=== PATIENT | male | born 1935 | race Caucasian/White ===

== ENCOUNTER 2021-12-26 09:18 | Emergency (ER) | payer MEDICARE, SELFPAY ==
[2021-12-26 09:19] VITALS: BP 136/63; PULSE 72; RESP 16; TEMP 36.7; O2SAT 92; BMI 23.1
--- NOTE | 2021-12-26 09:35 | RAD_ITS ---
STUDY: X-RAY - LEFT HUMERUS REASON FOR EXAM: Male, 86 years old. Injury/Pain TECHNIQUE: 2 view(s) of the humerus. COMPARISON: None. FINDINGS: The osseous structures appear intact. No evidence of fracture. Degenerative changes of the shoulder with narrowing of the space between the acromion process and humeral head impinging on the rotator cuff. Partially visualized left-sided cardiac device. RAD/Humerus min 2 Views IMPRESSION: No demonstrated acute osseous injury. Electronically Signed: Lawrence Roth, at 10:25 EST ,
--- NOTE | 2021-12-26 09:35 | RAD_ITS ---
STUDY: X-RAY - LEFT SHOULDER REASON FOR EXAM: Male, 86 years old. Injury/Pain TECHNIQUE: 4 view(s) of the shoulder. COMPARISON: None. FINDINGS: There is mild degenerative arthrosis of the glenohumeral articulation. Normal acromioclavicular joint. Normal acromion. Normal humeral head and visualized proximal humerus. The soft tissue structures are unremarkable. Partially visualized left-sided cardiac pacer device. RAD/Shoulder min 2 Views IMPRESSION: No demonstrated acute fracture or dislocation. Electronically Signed: Lawrence Roth, at 10:31 EST ,
[2021-12-26] MEDS: Diphth,Pertuss(Acell),Tet Vac 0.5 ML Vial IM (09:41)
--- NOTE | 2021-12-26 09:41 | EX.ED.UPPERE ---
HPI History of Present Illness Chief Complaint: Upper Extremity Injury Informant: patient Narrative Narrative: Patient is an 86-year-old male with history of end-stage renal disease on hemodialysis Tuesday and Tuesday presenting with left shoulder pain. Patient states he was try to get to bed last night and it was dark. He missed the bed and fell onto his left shoulder. Did not hit his head. Denies any loss of consciousness. Was able to get himself back up into bed. He continued of pain throughout the night and and then overnight took 2 ibuprofen. Denies any numbness or tingling. Did sustain an abrasion to his left elbow as well. Came in for further evaluation because of his continued pain. States he was able to get himself dressed this morning. Tetanus Immunization: Unknown [facility] Medical History History of heart attack Hyperlipidemia Kidney failure Pacemaker Home Medications Jenifer-Venessa 12/26/21 [History Last Taken Unknown] clopidogrel 12/26/21 [History Last Taken Unknown] doxycycline hyclate 12/26/21 [History Last Taken Unknown] [id number] [Trelegy Ellipta] INHALATION 12/26/21 [History Last Taken Unknown] gabapentin PO 12/26/21 [History Last Taken Unknown] midodrine mg 12/26/21 [History Last Taken Unknown] pantoprazole PO 12/26/21 [History Last Taken Unknown] sertraline mg 12/26/21 [History Last Taken Unknown] tamsulosin mg PO 12/26/21 [History Last Taken Unknown] tramadol 50 mg PO TID PRN #12 tab 12/26/21 [Rx Last Taken Unknown] Allergy/AdvReac Type Severity Reaction Status Date / Time No Known Allergies Allergy Verified 12/26/21 09:19 Social History Smoking Status: Current every day smoker tobacco type: cigarettes ROS ROS ED Constitutional Constitutional ED: Denies chills or fever(s) Eyes Eyes: Denies blurry vision or change in vision ENT ENT ED: Denies ear pain or sore throat Cardiovascular Cardiovascular: Denies chest pain or palpitations Respiratory/Chest Respiratory/Chest: Denies dyspnea Gastrointestinal Gastrointestinal: Denies abdominal pain or vomiting Musculoskeletal Musculoskeletal: Reports other Details: left shoulder pain Integumentary Reports Abrasions; Denies rash Neurologic Neurologic: Denies headache(s), paresthesias or weakness Hematologic/Lymphatic Hematologic/Lymphatic: Reports easy bruising EXAM Physical Exam Const Vital Signs: 12/26/21 09:19 Temperature 98.0 F Temperature Source Temporal Pulse Rate 72 Respiratory Rate 16 Blood Pressure 136/63 H Blood Pressure Mean 87 Pulse Ox 92 Oxygen Delivery Method Room Air Positive well nourished and well developed General Appearance ED: well developed HEENT HEENT Narrative: No hemotympanum, no septal hematoma normocephalic and atraumatic Eyes PERRL and EOMs intact bilaterally Neck full ROM and supple General: Negative for tenderness Chest Wall inspection of chest normal Chest Narrative: Pacemaker in the left anterior chest wall present Resp normal respiratory effort and clear to auscultation bilaterally Cardio regular rate, regular rhythm and no murmurs Cardio Narrative: AV fistula in the right upper extremity GI non-tender and non-distended Palpation: soft Back/Spine Cervical Spine: Negative for cervical spine tenderness Thoracic Spine / Upper Back: Negative for thoracic spinal tenderness Lumbar Spine / Lower Back: Negative for lumbar spinal tenderness Extremity Extremity Narrative: Tenderness to palpation diffusely of the left shoulder. No pinpoint area of pain. No obvious deformity. Minimal pain with passive range of motion but significant pain with active range of motion. Normal range of motion of the elbow and wrist. Patient is able to Abduct/flex his arm above the level of the shoulder Neuro oriented x3, moves all extremities and no focal motor deficits Sensorium / Orientation: alert Motor Exam: Negative for general weakness Psych mental status grossly normal Skin Skin Narrative: 5 cm irregular skin tear to the left lateral elbow MDM MDM MDM Narrative Medical decision making narrative: Patient is evaluated for left shoulder pain. He had a mechanical fall last night. He is neuro vastly intact. He does have a skin tear localized wound care was applied. Tetanus is updated. He is given a dose of morphine in the ER for his pain. X-ray of the clavicle, shoulder and humerus not show any acute fracture dislocation. He is given a sling for comfort but counseled on range of motion to prevent frozen shoulder. Is given a prescription for tramadol. Patient states he is tolerating the past. Is counseled on the risk and benefits of opioid pain medications at his age with increased risk of fall. States he is understanding of this and would still like a prescription. He does live home with his son and [id number] who will help him as needed. Patient discharged home in improved and stable condition. He is hemodynamically stable. Patient did not hit his head. No signs of head trauma. No reported loss of consciousness. I do not think a head CT is indicated at this time. Discharge Plan Triage Chief Complaint: Upper Extremity Injury ED Provider: Hamida España Dx/Rx/DC Orders Clinical Impression: Contusion of left shoulder, Skin tear of left elbow without complication, Fall Instructions: ED Contusion, Upper Extremity, ED Skin Avulsion Prescriptions: New tramadol 50 mg tablet 50 mg PO TID PRN (Reason: pain) Qty: 12 RF: 0 No Action doxycycline hyclate 100 mg Capsule RF: 0 clopidogrel 75 mg Tablet RF: 0 tamsulosin 0.4 mg Capsule PO RF: 0 pantoprazole 40 mg Tablet,Delayed Release (Dr/Ec) PO RF: 0 sertraline 25 mg Tablet RF: 0 midodrine 10 mg Tablet RF: 0 gabapentin 100 mg Tablet PO RF: 0 Trelegy Ellipta 100-62.5-25 mcg Blister With Device INHALATION RF: 0 Jenifer-Venessa RF: 0 Primary Care Provider: Michael Brooks Referrals: Michael Brooks MD [Primary Care Provider] - Activity Restrictions/Additional Instructions: Wear sling as needed for comfort. Make sure you do range of motion of your shoulder multiple times a day to prevent frozen shoulder. Follow-up with your doctor on Tuesday as scheduled for repeat evaluation. No broken bone seen on x-ray. Disposition Disposition: Home, Self Care Discharge Date/Time: 12/26/21 11:16
[2021-12-26] MEDS: Morphine 4 MG/ML Syringe IM (09:42)
[2021-12-26 11:16] VITALS: RESP 16; O2SAT 97
== END 2021-12-26 11:16 | disposition home or self-care (01) ==
PROVIDERS: Emergency Provider Emergency Medicine; PCP Internal Medicine; Visit Provider Emergency Medicine
DX: S40.012A Contusion of left shoulder, initial encounter (principal); Z99.2 Dependence on renal dialysis; N18.6 End stage renal disease; S50.312A Abrasion of left elbow, initial encounter; F17.210 Nicotine dependence, cigarettes, uncomplicated; E78.5 Hyperlipidemia, unspecified; Z79.899 Other long term (current) drug therapy; I25.2 Old myocardial infarction; S51.012A Laceration without foreign body of left elbow, initial encounter; W19.XXXA Unspecified fall, initial encounter; Y93.9 Activity, unspecified; Y92.9 Unspecified place or not applicable; Z23 Encounter for immunization
CPT/HCPCS: 73030; 73060; 90471; 90715; 96372; 99284

== ENCOUNTER 2022-02-28 15:34 | Emergency (ER) | payer MEDICARE, SELFPAY ==
[2022-02-28 15:35] VITALS: BP 153/131; PULSE 95; RESP 16; TEMP 36.6; O2SAT 99; BMI 24.8
--- NOTE | 2022-02-28 15:53 | ED.VIS.LOWEX ---
HPI History of Present Illness Chief Complaint: Wound Detail of Chief Complaint: Blister to right lower leg Informant: patient Narrative Narrative: Patient presents to the emergency department complaint of a blister to his right lower leg that has had for about 5 days. Patient states that he slipped and fell a week ago and scraped his right leg against the running board of a car. Patient 2 days later noticed this blister that was developing that has gotten larger. He denies any pain in the leg. Is had no fever or chills or sweats. He has been ambulating without difficulty. Patient is a dialysis patient and last went to dialysis 2 days ago and has not missed any dialysis. [facility] Medical History History of heart attack Hyperlipidemia Kidney failure Pacemaker Home Medications Jenifer-Venessa 12/26/21 [History Last Taken Unknown] clopidogrel 12/26/21 [History Last Taken Unknown] doxycycline hyclate 12/26/21 [History Last Taken Unknown] [id number] [Trelegy Ellipta] INHALATION 12/26/21 [History Last Taken Unknown] gabapentin PO 12/26/21 [History Last Taken Unknown] midodrine mg 12/26/21 [History Last Taken Unknown] pantoprazole PO 12/26/21 [History Last Taken Unknown] sertraline mg 12/26/21 [History Last Taken Unknown] tamsulosin mg PO 12/26/21 [History Last Taken Unknown] tramadol 50 mg PO TID PRN #12 tab 12/26/21 [Rx Last Taken Unknown] Allergy/AdvReac Type Severity Reaction Status Date / Time No Known Allergies Allergy Verified 02/28/22 15:36 Social History Smoking Status: Current every day smoker tobacco type: cigarettes ROS ROS ED Constitutional Constitutional ED: Reports systems reviewed and no addt'l complaints, except as documented; Denies body ache(s), change in weight or chills Eyes Eyes: Denies acute decrease in peripheral vision, change in vision, double vision or loss of vision ENT ENT ED: Reports none; Denies ear pain, lip swelling, loss taste/smell, neck pain, otalgia or sore throat Cardiovascular Cardiovascular: Reports none; Denies abdominal pain, chest pain with activity, leg edema, lightheadedness, palpitations, rapid heart rate or syncope Respiratory/Chest Respiratory/Chest: Reports none; Denies change in mental status, dry cough, dyspnea, hemoptysis, shortness of breath at rest or shortness of breath with exertion Gastrointestinal Gastrointestinal: Reports none; Denies abdominal pain, change in stool character, diarrhea, hematemesis, hematochezia, melena, rectal bleeding or vomiting Genitourinary Genitourinary ED: Reports none; Denies abdominal discomfort, anuria, dysuria, genital pain or polyuria Musculoskeletal Musculoskeletal: Reports none and other Details: Blister right leg ; Denies arthralgias, back pain, difficulty walking, extremity pain, muscle weakness or myalgias Integumentary Reports none; Denies abscess or rash Neurologic Neurologic: Reports none; Denies abnormal gait, confusion, focal weakness, frequent falls, headache(s), loss of vision, numbness, paresthesias, radicular pain, vertigo or weakness Psychiatric Psychiatric: Reports systems reviewed and no addt'l complaints, except as documented and none; Denies behavioral changes, confusion, difficulty concentrating, hallucinations, suicidal ideation, tactile hallucinations or visual hallucinations Endocrine Endocrinology: Denies none, cold intolerance, excessive sweating, fatigue or heat intolerance Hematologic/Lymphatic Hematologic/Lymphatic: Reports none; Denies anemia, easy bleeding or easy bruising Allergic/Immunologic Allergic/Immunologic ED: Denies as per HPI, none, lip swelling, mouth swelling, throat swelling, tongue swelling or hives EXAM Physical Exam Const Vital Signs: 02/28/22 15:35 Temperature 98 F Temperature Source Temporal Pulse Rate 95 Respiratory Rate 16 Blood Pressure 153/131 H Blood Pressure Mean 138 Pulse Ox 99 Oxygen Delivery Method Room Air Positive well nourished and well developed General Appearance ED: well developed and NAD HEENT Reports TM's clear and moist mucous membranes normocephalic and atraumatic; Negative for trauma or tenderness Tympanic Membrane ED: Yes TM's clear Eyes PERRL and EOMs intact bilaterally General Eye ED: Negative for pale conjunctiva or scleral icterus Neck no lymphadenopathy, supple and no JVD General: Negative for tenderness Chest Wall inspection of chest normal and palpation of chest normal Chest: Negative for tenderness Resp normal respiratory effort and clear to auscultation bilaterally Effort and Inspection: Negative for respiratory distress or pain with movement Auscultation: Negative for rhonchi, wheezes or diminished lung sounds Cardio regular rate, regular rhythm, S1 normal heart sound, S2 normal heart sound and no murmurs Peripheral Pulses: pulses 2+ throughout GI normal to inspection, nondistended, normoactive bowel sounds, soft to palpation, non-tender, non-distended and no masses Back/Spine no CVA tenderness and no thoracic nor lumbar tenderness Extremity Extremity Narrative: Evaluation of the right leg reveals a large blister on the lateral aspect of the distal anterior tibial region measuring approximately 8 cm in diameter. There is clear fluid noted. There are no cellulitic changes. Neurovascularly intact distally. Patient does have +2 edema both lower extremities that symmetric. General Extremety ED: Negative for edema General Extremity: Negative for edema Neuro oriented x3, CN's II-XII intact bilaterally, no sensory deficits noted and gait normal Sensorium / Orientation: awake, alert, oriented to person, oriented to place and oriented to time Motor Exam: strength 5/5 throughout and strength abnormal Psych mental status grossly normal Skin no rashes or lesions noted and no wounds MDM MDM MDM Narrative Medical decision making narrative: Patient has a large blister with clear fluid. It does not appear infected. I discussed with him that I did not feel this needed to be drained at this time as I could potentially cause it to become infected. He understands this may open up and start to drain spontaneously. He will keep an eye on it for signs of infection such as redness or fever or purulent drainage. He is advised to follow-up with primary care physician in 3 to 5 days for wound check. Discharge Plan Triage Chief Complaint: Wound ED Provider: Amanda Ugalde Dx/Rx/DC Orders Clinical Impression: Blister Instructions: ED Blister (Adult) Prescriptions: No Action doxycycline hyclate 100 mg Capsule RF: 0 clopidogrel 75 mg Tablet RF: 0 tamsulosin 0.4 mg Capsule PO RF: 0 pantoprazole 40 mg Tablet,Delayed Release (Dr/Ec) PO RF: 0 sertraline 25 mg Tablet RF: 0 midodrine 10 mg Tablet RF: 0 gabapentin 100 mg Tablet PO RF: 0 Trelegy Ellipta 100-62.5-25 mcg Blister With Device INHALATION RF: 0 Jenifer-Venessa RF: 0 tramadol 50 mg tablet 50 mg PO TID PRN (Reason: pain) Qty: 12 RF: 0 Primary Care Provider: Michael Brooks Referrals: Michael Brooks MD [Primary Care Provider] - 3-5 Days Disposition Disposition: Home, Self Care
== END 2022-02-28 16:11 | disposition home or self-care (01) ==
PROVIDERS: Emergency Provider Emergency Medicine; PCP Internal Medicine; Visit Provider Emergency Medicine
DX: S80.821A Blister (nonthermal), right lower leg, initial encounter (principal); E78.5 Hyperlipidemia, unspecified; F17.210 Nicotine dependence, cigarettes, uncomplicated; Y93.9 Activity, unspecified; Y99.9 Unspecified external cause status; W19.XXXA Unspecified fall, initial encounter; Y92.9 Unspecified place or not applicable; I25.2 Old myocardial infarction; Z95.0 Presence of cardiac pacemaker; Z79.899 Other long term (current) drug therapy; Z79.02 Long term (current) use of antithrombotics/antiplatelets
CPT/HCPCS: 99283

== ENCOUNTER 2022-03-08 17:51 | Emergency (ER) | payer MEDICARE, SELFPAY ==
[2022-03-08 17:53] VITALS: BP 102/51; PULSE 78; RESP 12; TEMP 36.7; O2SAT 98; BMI 25.5
--- NOTE | 2022-03-08 18:15 | ED.VIS.LOWEX ---
HPI History of Present Illness Chief Complaint: Wound Detail of Chief Complaint: Concern for wound infection anterior distal right leg Informant: patient Onset/Context/Timing Onset: Weeks Context: Sudden Onset Timing: Continuous Location: Anterior distal right leg Current Severity: Mild Maximum Severity: Mild Worsened by: Lymphedema Relieved by: Nothing Associated Symptoms Associated Symptoms: Negative for Parasthesia, Weakness and Loss of Funtion Narrative Narrative: Patient is a 86-year-old male who was seen for contusion to the leg with blister. The blister has spontaneously ruptured. He presents because the blister continues to drain. He denies fever, chills night sweats. He denies redness to the area. He denies colored drainage. He has no other complaints. Tetanus Immunization: 5-10 years Prior similar symptoms: Yes Recent Illness/Hospitalization: Yes [facility] Medical History History of heart attack Hyperlipidemia Kidney failure Pacemaker Home Medications Jenifer-Venessa 12/26/21 [History Last Taken Unknown] clopidogrel 12/26/21 [History Last Taken Unknown] doxycycline hyclate 12/26/21 [History Last Taken Unknown] [id number] [Trelegy Ellipta] INHALATION 12/26/21 [History Last Taken Unknown] gabapentin PO 12/26/21 [History Last Taken Unknown] midodrine mg 12/26/21 [History Last Taken Unknown] pantoprazole PO 12/26/21 [History Last Taken Unknown] sertraline mg 12/26/21 [History Last Taken Unknown] tamsulosin mg PO 12/26/21 [History Last Taken Unknown] tramadol 50 mg PO TID PRN #12 tab 12/26/21 [Rx Last Taken Unknown] Allergy/AdvReac Type Severity Reaction Status Date / Time No Known Allergies Allergy Verified 03/08/22 17:53 Social History (Updated 03/08/22 @ 18:[address] Liam Akins MD) household members: none Smoking Status: Current every day smoker tobacco type: cigarettes substance use type: does not use ROS ROS ED Constitutional Constitutional ED: Denies chills, fever(s), subjective or sweats Musculoskeletal Musculoskeletal: Denies arthralgias, back pain, myalgias or neck pain Neurologic Neurologic: Denies paresthesias or weakness Hematologic/Lymphatic Hematologic/Lymphatic: Denies easy bleeding or easy bruising EXAM Physical Exam Const Vital Signs: 03/08/22 17:53 Temperature 98.1 F Temperature Source Temporal Pulse Rate 78 Respiratory Rate 12 Blood Pressure 102/51 L Blood Pressure Mean 68 Pulse Ox 98 Oxygen Delivery Method Room Air Positive well nourished and well developed General Appearance ED: well developed and NAD HEENT normocephalic and atraumatic Eyes PERRL Resp normal respiratory effort Cardio regular rate and regular rhythm Extremity full ROM; Negative for normal to inspection Extremity Narrative: Patient has a blister that is approximately 5 cm diameter that has spontaneous rupture. There is serous drainage. There is no erythema, warmth, induration or fluctuance. There is no lymphangitis. There is no popliteal lymphadenopathy. General Extremety ED: Yes edema; Negative for cyanosis or weight-bearing difficulty General Extremity: edema; Negative for cyanosis or weight-bearing difficulty Neuro oriented x3, CN's II-XII intact bilaterally and no sensory deficits noted Sensorium / Orientation: alert Motor Exam: strength 5/5 throughout Psych Mood & Affect: anxious Skin Skin Narrative: Wound was previously described MDM MDM MDM Narrative Medical decision making narrative: Patient was informed his wound is not infected. He is having continuous drainage because he has excess fluid in his leg. And now that the skin has sloughed there is nothing to prevent the fluid that in his leg from draining. Discharge Plan Triage Chief Complaint: Wound ED Provider: Liam Akins Dx/Rx/DC Orders Clinical Impression: Leg wound, right, Lymphedema Instructions: ED Blister (Adult), ED Lymphedema Prescriptions: No Action doxycycline hyclate 100 mg Capsule RF: 0 clopidogrel 75 mg Tablet RF: 0 tamsulosin 0.4 mg Capsule PO RF: 0 pantoprazole 40 mg Tablet,Delayed Release (Dr/Ec) PO RF: 0 sertraline 25 mg Tablet RF: 0 midodrine 10 mg Tablet RF: 0 gabapentin 100 mg Tablet PO RF: 0 Trelegy Ellipta 100-62.5-25 mcg Blister With Device INHALATION RF: 0 Jenifer-Venessa RF: 0 tramadol 50 mg tablet 50 mg PO TID PRN (Reason: pain) Qty: 12 RF: 0 Primary Care Provider: Michael Brooks Referrals: Michael Brooks MD [Primary Care Provider] - 10-14 Days if not better Disposition Disposition: Home, Self Care
== END 2022-03-08 18:44 | disposition home or self-care (01) ==
PROVIDERS: Emergency Provider Emergency Medicine; PCP Internal Medicine; Visit Provider Emergency Medicine
DX: S80.821A Blister (nonthermal), right lower leg, initial encounter (principal); S80.10XA Contusion of unspecified lower leg, initial encounter; E87.70 Fluid overload, unspecified; E78.5 Hyperlipidemia, unspecified; F17.210 Nicotine dependence, cigarettes, uncomplicated; X58.XXXA Exposure to other specified factors, initial encounter; Y93.9 Activity, unspecified; Y99.9 Unspecified external cause status; Y92.9 Unspecified place or not applicable; Z95.0 Presence of cardiac pacemaker; I25.2 Old myocardial infarction; Z79.02 Long term (current) use of antithrombotics/antiplatelets; Z79.899 Other long term (current) drug therapy
CPT/HCPCS: 99282

== ENCOUNTER 2022-04-14 09:48 | Emergency (ER) | payer MEDICARE, SELFPAY ==
[2022-04-14 09:49] VITALS: BP 117/64; PULSE 85; RESP 19; TEMP 35.8; O2SAT 92; BMI 24.7
[2022-04-14 10:03] VITALS: O2SAT 94
--- NOTE | 2022-04-14 10:05 | EKG12_ITS ---
Test Reason : SOB Blood Pressure : / mmHG Vent. Rate : 077 BPM Atrial Rate : 097 BPM P-R Int : 000 ms QRS Dur : 148 ms QT Int : 472 ms P-R-T Axes : 000 106 -46 degrees QTc Int : 534 ms Ventricular-paced rhythm with frequent and consecutive Premature ventricular complexes Abnormal ECG Confirmed by CHRISTINA FONTANEZ, ANTONIO ([id number]), newspaper or periodical editor DARBY YOUSSEF ([id number]) on 04/19/2022 7:35:25 AM Referred By: ALLIE/GRETHCEN Confirmed By:ANTONIO VASQUEZ MD
[2022-04-14 10:10] VITALS: O2SAT 92
--- NOTE | 2022-04-14 10:15 | RAD_ITS ---
STUDY: X-RAY CHEST REASON FOR EXAM: Male, 87 years old. Chest pain . Increasing shortness of breath. TECHNIQUE: Single AP portable view of the chest. COMPARISON: None. FINDINGS: EKG electrodes are seen. A vascular stent is seen in the medial portion of the right arm. There is thickening of the right minor fissure. Nodular component measuring 2.2 cm x 1.2 cm is seen along its lateral aspect this may represent fluid. Blunting of the right costophrenic angle with increased markings at the right lung base. Normal size heart. A left-sided dual-chamber pacemaker is seen. Normal mediastinum and neo. Normal visualized pulmonary arteries. There is atherosclerotic calcification of the aortic arch with tortuosity. There are diffuse degenerative changes of the visualized thoracic spine. Normal visualized ribs, clavicles, and shoulders. There is no demonstrated abnormality of the visualized soft tissue structures of the upper abdomen. RAD/Chest 1 View (Portable) IMPRESSION: Thickening of the right minor fissure with blunting of the right costophrenic angle and increased markings at the right lung base. Possible infiltrate. Follow-up is recommended. Electronically Signed: Joey Reddy MD at 10:31 EDT ,
[2022-04-14 10:16] LABS: Absolute Lymphocyte Count 1.36 X10^3/uL (0.83-4.51); Absolute Neutrophil Count 5.9 X10^3/uL (2.0-7.7); Basophil# 0.04 X10^3/uL; Basophil% 0.5 % (0-1); Eosinophil# 0.07 X10^3/uL; Eosinophils% 0.8 % (0-5); Hematocrit 35.2 % (40-54); Hemoglobin 11.5 g/dL (13.0-16.5); Lymphocyte # 1.36 X10^3/ul (0.83-4.51); Lymphocyte % 15.8 % (19-41); Mean Corp Hgb Conc 32.7 g/dL (32-36); Mean Corpuscular Volume 101.1 fL (80-94); Mean Platelet Vol. 11.3 fl (6.2-12.0); Monocyte# 1.17 X10^3/uL; Monocyte% 13.6 % (0-10); NRBC Flagged by Analyzer 0 % (0-5); Neutrophil # 5.93 X10^3/uL (2.7-7.7); Neutrophil % 68.8 % (47-70); Platelet Count 148 K/mm3 (150-450); RBC Distribution Width CV 17.4 % (11.6-14.6); RBC Distribution Width SD 63.8 fl (35.1-43.9); Red Blood Count 3.48 M/mm3 (4.6-6.2); White Blood Count 8.6 K/mm3 (4.4-11.0)
--- NOTE | 2022-04-14 10:26 | EDS_ITS ---
HPI History of Present Illness Chief Complaint: Shortness of Breath Informant: patient and family Onset/Context/Timing Onset: Weeks Context: gradual Timing: Intermittent Quality: Positive for Dyspnea on exertion; Negative for Orthopnea, PND and Wheezing Current Severity: Mild Maximum Severity: Mild Worsened by: Exertion; Not Worsened By Lying flat and Coughing Relieved by: Rest Associated Symptoms cough; Negative for fever, sore throat, subjective, chills or sweats Chest Pain: Positive for None Narrative Narrative: 87-year-old male history of COPD and end-stage renal disease in which he is dialysis Tuesday. He did not have dialysis today but he did have a full run on Tuesday. States been intermittently short of breath the last several weeks is gotten worse since Tuesday. Denies any chest pain. No hemoptysis. No fever or chills. Has a chronic nonproductive cough. Also has a history of a prior NC and a pacemaker placed in 2012. He denies being on any blood thinners currently. He denies any hemoptysis. PE Risk Factors: Negative for Cancer, OCP + Smoking + > 35, Prior DVT or PE, Recent immobilization, Recent surgery and Recent travel Prior similar symptoms: Yes Recent Illness/Hospitalization: No PFSH PFSH Medical History History of heart attack Hyperlipidemia Kidney failure Pacemaker Home Medications Jenifer-Venessa 12/26/21 [History Last Taken Unknown] clopidogrel 75 mg PO DAILY 12/26/21 [History Last Taken Unknown] doxycycline hyclate 12/26/21 [History Last Taken Unknown] [id number] [Trelegy Ellipta] INHALATION 12/26/21 [History Last Taken Unknown] gabapentin PO 12/26/21 [History Last Taken Unknown] midodrine mg 12/26/21 [History Last Taken Unknown] pantoprazole PO 12/26/21 [History Last Taken Unknown] sertraline mg 12/26/21 [History Last Taken Unknown] tamsulosin mg PO 12/26/21 [History Last Taken Unknown] tramadol 50 mg PO TID PRN #12 tab 12/26/21 [Rx Last Taken Unknown] Allergy/AdvReac Type Severity Reaction Status Date / Time No Known Allergies Allergy Verified 04/14/22 09:48 Social History household members: none Smoking Status: Current every day smoker tobacco type: cigarettes substance use type: does not use ROS ROS ED ROS Narrative Shortness of breath. Chronic cough. Review of Systems ROS Unobtainable: Denies due to encephalopathy Constitutional Constitutional ED: Denies chills or fever(s) Eyes Eyes: Denies change in vision ENT ENT ED: Denies ear pain Cardiovascular Cardiovascular: Denies chest pain, orthopnea, palpitations or paroxysmal nocturnal dyspnea Respiratory/Chest Respiratory/Chest: Reports cough, dyspnea and dyspnea on exertion; Denies orthopnea, paroxysmal nocturnal dyspnea or sputum Gastrointestinal Gastrointestinal: Denies abdominal pain, constipation, diarrhea, melena, nausea or vomiting Genitourinary Genitourinary ED: Denies dysuria Musculoskeletal Musculoskeletal: Denies myalgias Integumentary Denies rash Neurologic Neurologic: Denies headache(s) Psychiatric Psychiatric: Denies depression Endocrine Endocrinology: Denies polyuria Hematologic/Lymphatic Hematologic/Lymphatic: Denies easy bruising Allergic/Immunologic Allergic/Immunologic ED: Denies urticaria EXAM Physical Exam Narrative Exam Narrative: 87-year-old male no acute distress. Vital signs stable afebrile. Pulse ox 92% on room air no signs hypoxia. H EENT exam unremarkable. Neck nontender. No JVD. Lungs clear to auscultation bilaterally. Heart reg ular rhythm rate of 90 he does have a 4/6 systolic ejection murmur and has a history of a murmur. Abdomen soft nontender. Moving all 4 extremities. He has a deep wound in his right anterior lateral lower leg he states its been there several months is actually improving. 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 Normal dorsi plantar flexion. Neurologically is awake and alert. Const Vital Signs: 04/14/22 09:49 04/14/22 10:03 04/14/22 10:10 Temperature 96.5 F L Temperature Source Temporal Pulse Rate 85 Respiratory Rate 19 H Respiratory Effort Short of Breath Labored Respiratory Pattern Tachypnea Blood Pressure 117/64 Blood Pressure Mean 81 Pulse Ox 92 92 Oxygen Delivery Method Room Air Room Air Room Air 04/14/22 12:06 04/14/22 14:19 Temperature 97.5 F L Temperature Source Temporal Pulse Rate 85 64 Respiratory Rate 16 22 H Respiratory Effort Respiratory Pattern Blood Pressure 114/53 L 159/142 H Blood Pressure Mean 73 147 Pulse Ox 94 93 Oxygen Delivery Method Room Air Room Air Positive well nourished and well developed; Negative for obese, cachectic, contractures or unkempt General Appearance ED: well developed and NAD; Negative for unkempt, cachectic or contractures Nutritional Appearance: Negative for cachectic or obese HEENT Reports moist mucous membranes atraumatic; Negative for trauma or tenderness Eyes PERRL and EOMs intact bilaterally General Eye ED: Negative for pale conjunctiva or scleral icterus Neck no lymphadenopathy, supple, no meningeal signs and no JVD General: Negative for tenderness Resp normal respiratory effort and clear to auscultation bilaterally Auscultation: Negative for rales, rhonchi or wheezes Cardio regular rate, regular rhythm, S1 normal heart sound and S2 normal heart sound; Negative for no murmurs Cardio Narrative: 4/6 systolic ejection murmur. GI non-tender, non-distended and no masses Auscultation: normoactive bowel sounds; Negative for hyperactive bowel sounds or hypoactive bowel sounds Palpation: soft; Negative for tender, guarding or rebound tenderness present Back/Spine no CVA tenderness General Back: Negative for CVA tenderness Extremity Negative for normal to inspection Extremity Narrative: Right lower leg wound. Chronic. Deep appearing. Trace edema bilaterally. General Extremety ED: Yes edema; Negative for tenderness General Extremity: edema Neuro oriented x3 Sensorium / Orientation: alert, oriented to person, oriented to place and orientation impaired Motor Exam: strength 5/5 throughout Psych mental status grossly normal Appearance: Negative for unkempt Mood & Affect: Negative for depressed or tearful Thought Process: normal thought process Skin No no wounds Skin Narrative: Right lower leg wound. Lesions: no lesions Rashes: no rashes MDM MDM MDM Narrative Medical decision making narrative: 87-year-old male with end-stage renal disease dialysis. With exertional shortness of breath. Also history of COPD and prior NC and a pacemaker. He is on Plavix. To be worked up from a cardiac and lung standpoint. Repeat exam unchanged at 320. Discussed with patient. I offered to see if I can get him into dialysis later today he really does not want to go. He is set up for dialysis again on Tuesday. The nurses walked him he was able to ambulate with a walker and his sats stayed around 90%. He ambulated without difficulty and he did not develop any chest pain nor any significant shortness of breath with walking. Discussed with patient I was going to call dialysis if they can do a treatment today but he did not want to go. I spoke with his son via phone. Son said he still takes care of himself. He still drives himself dialysis. Son was comfortable with him not being admitted and did not think he was a failure to thrive and can follow-up as an outpatient. Lab Data Attestation: I reviewed the patient's lab results. Lab results narrative: CBC shows a white count 8.6. H&H 11.5 and 35.2 consistent with his chronic anemia of chronic disease. Platelets 148. Labs: Laboratory Results - last 24 hr 04/14/22 04/14/22 04/14/22 09:55 09:55 12:28 WBC 8.6 RBC 3.48 L Hgb 11.5 L Hct 35.2 L MCV 101.1 H MCH 33.0 H MCHC 32.7 RDW Std Deviation 63.8 H RDW Coeff of Omer 17.4 H Plt Count 148 L MPV 11.3 Immature Gran % (Auto) 0.500 Neut % (Auto) 68.8 Lymph % (Auto) 15.8 L [place] % (Auto) 13.6 H Eos % (Auto) 0.8 Baso % (Auto) 0.5 Absolute Neuts (auto) 5.9 Absolute Lymphs (auto) 1.36 Nucleated RBC % 0 Sodium 139 Potassium 4.3 Chloride 98 Carbon Dioxide 31.0 Anion Gap 10 BUN 34 H Creatinine 5.87 H Estim Creat Clear Calc 8.58 Est GFR (MDRD) Af Amer 12 L Est GFR (MDRD) Non-Af 10 L BUN/Creatinine Ratio 5.8 L Glucose 88 Calcium 9.8 Troponin I High Sens 116 H 116 H Radiography Chest X-Ray - ED: 1 View, Read by ED Physician, Heart, Mediastinum, Bony Structures and Chronic Changes Diagnostic Testing: Clinical Impression(s) from Imaging Studies Chest X-Ray 04/14/22 10:15 IMPRESSION: Thickening of the right minor fissure with blunting of the right costophrenic angle and increased markings at the right lung base. Possible infiltrate. Follow-up is recommended. Electronically Signed: Joey Reddy MD at 10:31 EDT , Chest CT 04/14/22 11:49 IMPRESSION: Moderate thickening of the right minor fissure measuring fluid density. Scarring in both lungs with small bilateral pleural effusions. Small amount of perihepatic and perisplenic fluid. Electronically Signed: Joey Reddy MD at 13:13 EDT , Chest x-ray, portable, single view interpreted myself and radiologist shows of fluid in the right fissure. Most likely from pleural effusion. Cannot rule out infiltrate. Rhythm Strip Rhythm Strip: Paced Rate: 77 Ectopy: PVC(s) EKG Initial EKG: Attestation: I personally reviewed and interpreted this EKG as follows: Interpretation: Paced Comments: Paced rhythm rate of 77. PVCs. No acute NC or ischemia. Discharge Plan Triage Chief Complaint: Shortness of Breath ED Provider: Usman Lau Dx/Rx/DC Orders Clinical Impression: Acute dyspnea, History of end stage renal disease, History of cardiac pacemaker Prescriptions: No Action doxycycline hyclate 100 mg Capsule RF: 0 clopidogrel 75 mg Tablet 75 mg PO DAILY RF: 0 tamsulosin 0.4 mg Capsule PO RF: 0 pantoprazole 40 mg Tablet,Delayed Release (Dr/Ec) PO RF: 0 sertraline 25 mg Tablet RF: 0 midodrine 10 mg Tablet RF: 0 gabapentin 100 mg Tablet PO RF: 0 Trelegy Ellipta 100-62.5-25 mcg Blister With Device INHALATION RF: 0 Jenifer-Venessa RF: 0 tramadol 50 mg tablet 50 mg PO TID PRN (Reason: pain) Qty: 12 RF: 0 Primary Care Provider: Michael Brooks Referrals: Michael Brooks MD [Primary Care Provider] - As soon as possible Activity Restrictions/Additional Instructions: Follow-up with your primary care physician for further evaluation. Return to the emergency department if you are feeling worse. Make sure that you have your dialysis done on Tuesday. Disposition Disposition: Home, Self Care
[2022-04-14 10:35] LABS: Anion Gap 10 (5-15); BUN 34 mg/dL (7-18); BUN/Creat Ratio 5.8 RATIO (10-20); Calcium,Total 9.8 mg/dL (8.5-10.1); Chloride 98 mmol/L (98-107); Creatinine, Serum 5.87 mg/dL (0.70-1.30); EST Glomerular Filtration Rate 10 mL/min (>60); Est Glom Filt Rate - Afr Amer 12 mL/min (>60); Estimated Creatinine Clearance 8.58 ml/min; Glucose 88 mg/dL (74-106); Potassium 4.3 mmol/L (3.5-5.1); Sodium Level 139 mmol/L (136-145); Troponin-I HS (w/2H Reflex) 116 pg/mL (3.0-78.0)
--- NOTE | 2022-04-14 11:49 | CT_ITS ---
STUDY: CT CHEST WITHOUT CONTRAST REASON FOR EXAM: Male, 87 years old. Right LL infiltrate vs fluid ?? RADIATION DOSAGE (If Supplied By Facility): CTDIvol = ( 10.80 ) mGy, DLP = ( 402.25 ) mGycm TECHNIQUE: Transaxial imaging was performed without the administration of intravenous contrast material. Multiplanar coronal and sagittal images were reformatted. Individualized dose optimization techniques were used for this CT. COMPARISON: Comparison is made with prior chest radiograph done earlier in the day. FINDINGS: CHEST There is evidence of a small right pleural effusion. Nodular thickening of the right minor fissure. Linear scarring in the right middle lobe. There is a 2.1 cm x 1.9 cm hypodense nodule in the anterior aspect of the right middle lobe. Hypodense nodule seen adjacent to the right minor fissure. These nodular densities measure fluid density. This is suggestive of a loculated pleural effusions. There is also evidence of a scarring at the lung bases. Small left pleural effusion. Small pericardial effusion. There are calcifications of the coronary arteries. There are multiple small lymph nodes within the mediastinum, which are normal in size and morphology most compatible with reactive lymph hyperplasia. Normal hilar regions. Normal unenhanced pulmonary arteries. There is atherosclerotic calcification of the aortic arch with tortuosity and elongation of the aortic arch and descending thoracic aorta. There are multi-level degenerative changes of the thoracic spine. Small amount of perihepatic and perisplenic fluid. Increased markings in the peritoneal fat seen in the upper abdomen. Findings suggestive of small gallstones or sludge in the gallbladder lumen. CT/Chest without Contrast IMPRESSION: Moderate thickening of the right minor fissure measuring fluid density. Scarring in both lungs with small bilateral pleural effusions. Small amount of perihepatic and perisplenic fluid. Electronically Signed: Joey Reddy MD at 13:13 EDT ,
[2022-04-14 12:06] VITALS: BP 114/53; PULSE 85; RESP 16; TEMP 36.4; O2SAT 94
[2022-04-14 12:13] LABS: Reflex Troponin-HS? (from REC) Y
[2022-04-14 12:50] LABS: Troponin-I HS 116 pg/mL (3.0-78.0)
[2022-04-14 14:19] VITALS: BP 159/142; PULSE 64; RESP 22; O2SAT 93; O2SAT 98
[2022-04-14 16:02] VITALS: BP 119/51; PULSE 70; RESP 25; O2SAT 95
== END 2022-04-14 16:06 | disposition home or self-care (01) ==
PROVIDERS: Emergency Provider Emergency Medicine; PCP Internal Medicine; Visit Provider Emergency Medicine
DX: R06.00 Dyspnea, unspecified (principal); Z99.2 Dependence on renal dialysis; J44.9 Chronic obstructive pulmonary disease, unspecified; N18.6 End stage renal disease; Z95.0 Presence of cardiac pacemaker; E78.5 Hyperlipidemia, unspecified; I25.2 Old myocardial infarction; Z79.899 Other long term (current) drug therapy; F17.210 Nicotine dependence, cigarettes, uncomplicated; R01.1 Cardiac murmur, unspecified; S81.801A Unspecified open wound, right lower leg, initial encounter; D63.8 Anemia in other chronic diseases classified elsewhere; I49.3 Ventricular premature depolarization; X58.XXXA Exposure to other specified factors, initial encounter
CPT/HCPCS: 36415; 71045; 71250; 80048; 84484; 85025; 87811; 93005; 99285; A4216

== ENCOUNTER 2022-04-25 11:30 | Inpatient (IN) | payer MEDICARE, SELFPAY ==
[2022-04-25] VITALS (11 sets, daily range): BP systolic 102–119; BP diastolic 42–76; PULSE 63–118; RESP 16–25; TEMP 36.4–36.6; O2SAT 93–100; BMI 24.3; BMI 23.2
--- NOTE | 2022-04-25 11:47 | RAD_ITS ---
STUDY: X-RAY - PELVIS AND RIGHT HIP REASON FOR EXAM: Male, 87 years old. Atraumatic hip pain TECHNIQUE: 3 views of the pelvis and hip. COMPARISON: None. FINDINGS: There is a non-specific bowel gas pattern. There are vascular calcifications. Normal bilateral iliac wings, sacroiliac joints and visualized sacrum. Normal bilateral superior and inferior pubic rami. There are degenerative changes of the pubic symphysis. Normal bilateral ischial tuberosities. There are degenerative changes of the hips characterized by joint space narrowing and subchondral sclerosis. RAD/HIP, UNI W/ Pelvis 2-3 Views IMPRESSION: Degenerative changes. Electronically Signed: Tarsha Peoples MD at 13:36 EDT ,
--- NOTE | 2022-04-25 11:47 | RAD_ITS ---
HISTORY right lower leg wound. TECHNIQUE: XR Tibia/Fibula 2 Views. COMPARISON: None. FINDINGS: BONES : No acute fracture identified. No cortical erosion observed. JOINTS: No dislocation. Mild degenerative change. SOFT TISSUES: Soft tissue swelling and air in the posterior and lateral soft tissues. RAD/Tibia & Fibula 2 Views IMPRESSION: Soft tissue swelling with air or ulceration in the soft tissues of the right leg. No acute osseous abnormality identified. Electronically Signed: Melita Taveras MD at 12:50 EDT ,
--- NOTE | 2022-04-25 11:47 | EKG12_ITS ---
Test Reason : Blood Pressure : / mmHG Vent. Rate : 084 BPM Atrial Rate : 058 BPM P-R Int : 000 ms QRS Dur : 106 ms QT Int : 440 ms P-R-T Axes : 000 015 211 degrees QTc Int : 519 ms Atrial fibrillation with frequent ventricular-paced complexes and with premature ventricular or aberr antly conducted complexes Low voltage QRS ST & T wave abnormality, consider inferior ischemia ST & T wave abnormality, consider anterolateral ischemia Prolonged QT Abnormal ECG When compared with ECG of 14-APR-2022 10:00, Premature ventricular complexes are no longer Present Vent. rate has increased BY 7 BPM Confirmed by CHRISTINA FONTANEZ, ANTONIO ([id number]), senior editor NITZA GERARD ([id number]) on 04/26/2022 10:11:00 AM Referred By: ALLIE Confirmed By:ANTONIO VASQUEZ MD
--- NOTE | 2022-04-25 11:47 | RAD_ITS ---
STUDY: X-RAY CHEST REASON FOR EXAM: Male, 87 years old. Weakness TECHNIQUE: 2 frontal images of the chest were obtained. COMPARISON: 04/14/2022 FINDINGS: There is interval enlargement of a nodular opacity within the right mid lung that appears to be along the right minor fissure measuring up to 3.1 cm, previously measuring up to 2.2 cm. There is blunting of the right costophrenic angle. There is a curvilinear opacity within the right lung apex. There is a spiculated right basilar opacity as well. There is cardiomegaly. There is a cardiac pacer device in place. Normal mediastinum and neo. Normal visualized pulmonary arteries. Normal visualized aortic arch and descending thoracic aorta. Normal visualized thoracic spine. Normal visualized ribs, clavicles, and shoulders. There is no demonstrated abnormality of the visualized soft tissue structures of the upper abdomen. RAD/Chest 1 View (Portable) IMPRESSION: Interval enlargement of nodular opacity along the right minor fissure associated with interval enlargement of a right pleural effusion that appears loculated within the right upper lung; the nodular opacity may be secondary to loculated fluid within the minor fissure as well. Cardiomegaly. Electronically Signed: Tarsha Peoples MD at 13:34 EDT ,
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
[2022-04-25 12:01] LABS: Absolute Lymphocyte Count 1.04 X10^3/uL (0.83-4.51); Basophil# 0.02 X10^3/uL; Basophil% 0.1 % (0-1); Eosinophil# 0.01 X10^3/uL; Eosinophils% 0.1 % (0-5); Hematocrit 36.5 % (40-54); Hemoglobin 12.3 g/dL (13.0-16.5); Lymphocyte # 1.04 X10^3/ul (0.83-4.51); Lymphocyte % 5.9 % (19-41); Mean Corp Hgb Conc 33.7 g/dL (32-36); Mean Corpuscular Hgb 33.3 pg (27.0-32.0); Mean Corpuscular Volume 98.9 fL (80-94); Mean Platelet Vol. 12.1 fl (6.2-12.0); Monocyte# 1.54 X10^3/uL; Monocyte% 8.7 % (0-10); NRBC Flagged by Analyzer 0 % (0-5); Neutrophil # 15.01 X10^3/uL (2.7-7.7); Neutrophil % 84.5 % (47-70); POSITIVE DIFFERENTIAL YES; Platelet Count 127 K/mm3 (150-450); RBC Distribution Width CV 17.1 % (11.6-14.6); Red Blood Count 3.69 M/mm3 (4.6-6.2); White Blood Count 17.8 K/mm3 (4.4-11.0)
[2022-04-25 12:04] LABS: Differential Indicated SCAN CRITERIA MET
[2022-04-25 12:19] LABS: ALB/GLOB Ratio 0.6 RATIO (0.9-2.4); AST(SGOT) 36 U/L (15-37); Alanine Aminotransfer ALT/SGPT 30 U/L (16-61); Albumin, Serum 2.6 g/dL (3.2-5.0); Alkaline Phosphatase 150 U/L (45-117); Anion Gap 8 (5-15); BUN 41 mg/dL (7-18); BUN/Creat Ratio 6.6 RATIO (10-20); Calcium,Total 9.1 mg/dL (8.5-10.1); Chloride 99 mmol/L (98-107); Creatinine, Serum 6.18 mg/dL (0.70-1.30); EST Glomerular Filtration Rate 9 mL/min (>60); Est Glom Filt Rate - Afr Amer 11 mL/min (>60); Estimated Creatinine Clearance 7.87 ml/min; Globulin 4.2 g/dL (2.2-4.2); Glucose 91 mg/dL (74-106); Potassium 4.6 mmol/L (3.5-5.1); Protein, Total 6.8 g/dL (6.4-8.2); Sodium Level 139 mmol/L (136-145)
[2022-04-25 12:24] LABS: Differential Comment SCANNED
--- NOTE | 2022-04-25 14:12 | RAD_ITS ---
STUDY: X-RAY CHEST REASON FOR EXAM: Male, 87 years old. Right chest decubitus film (effusion) TECHNIQUE: A right lateral decubitus chest film was obtained COMPARISON: 04/25/2022 at 12:15 PM FINDINGS: There is a right pleural effusion that is not as pronounced within the right lung apex as on the upright image suggesting a free flowing effusion. There is cardiomegaly. There is a cardiac pacer device in place. Normal mediastinum and neo. Normal visualized pulmonary arteries. Normal visualized aortic arch and descending thoracic aorta. Normal visualized thoracic spine. Normal visualized ribs, clavicles, and shoulders. There is no demonstrated abnormality of the visualized soft tissue structures of the upper abdomen. RAD/Special CXR (Obl/Decub/A/L) IMPRESSION: Right pleural effusion that appears to be at least partially free flowing. Cardiomegaly. Electronically Signed: Tarsha Peoples MD at 15:01 EDT ,
--- NOTE | 2022-04-25 15:45 | PCM.HP.STD ---
Documented by User: RICKEY Bower 04/25/22 16:11 HPI - General General Date of Admission: 04/25/22 Date of Service: 04/25/22 Chief Complaint: Weakness HPI Narrative PADMINI MARSH, is a 87 M who presents with decreased appetite and increased weakness which has been getting worse over the past couple of weeks. Patient also reports that he has had some shortness of breath. Patient has end-stage renal disease and gets dialysis Tuesday and underwent a full run Tuesday. Patient also has a history of COPD, hyperlipidemia, BPH, atrial fibrillation and a right leg chronic wound. [facility] Medical History History of heart attack Hyperlipidemia Kidney failure Pacemaker Home Medications Jenifer-Venessa kidneys 12/26/21 [History Last Taken 04/24/22 10:00] clopidogrel 75 mg tablet 75 mg PO DAILY blood 12/26/21 [History Last Taken 04/24/22 10:00] fluticasone fur. 100 mcg-umeclid 62.5 mcg-vilant 25 mcg inhalat.powder (Trelegy Ellipta) inhalation inhaler 12/26/21 [History Last Taken 04/24/22 10:00] midodrine 10 mg tablet 10 mg PO DAILY pre dialysis 12/26/21 [History Last Taken 04/23/22 10:00] pantoprazole 40 mg tablet,delayed release 40 mg PO DAILY acid 12/26/21 [History Last Taken 04/24/22 10:00] sertraline 25 mg tablet mg mood 12/26/21 [History Last Taken 04/24/22 10:00] tamsulosin 0.4 mg capsule mg PO prostate 12/26/21 [History Last Taken 04/24/22 10:00] atorvastatin 40 mg tablet 40 tab PO DAILY cholesterol 04/25/22 [History Last Taken 04/24/22 10:00] Allergy/AdvReac Type Severity Reaction Status Date / Time No Known Allergies Allergy Verified 04/14/22 09:48 Social History household members: none Smoking Status: Current every day smoker tobacco type: cigarettes substance use type: does not use ROS Constitutional Constitutional: Reports fatigue, lethargy, poor appetite and weakness; Denies anorexia or change in weight Cardiovascular Cardiovascular: Denies chest pain, edema, palpitations or syncope Respiratory/Chest Respiratory/Chest: Denies cough, shortness of breath at rest, shortness of breath with exertion or wheezing Gastrointestinal Gastrointestinal: Reports diarrhea; Denies abdominal pain, constipation, nausea or vomiting Genitourinary Genitourinary: Denies dysuria Musculoskeletal Musculoskeletal: Denies back pain, extremity pain, joint pain, joint stiffness or joint swelling Integumentary Integumentary: Reports wounds; Denies dry skin Neurologic Neurologic: Reports weakness; Denies abnormal speech Psychiatric Psychiatric: Denies anxiety or depression Endocrine Endocrinology: Denies change in body appearance Hematologic/Lymphatic Hematologic/Lymphatic: Denies anemia Vital Signs Vital Signs Vital Signs: 04/25/22 11:33 04/25/22 11:35 04/25/22 11:35 Temperature 97.8 F 97.8 F Temperature Source Oral Oral Pulse Rate 82 82 Respiratory Rate 16 16 Respiratory Effort Short of Breath Labored Respiratory Depth Shallow Respiratory Pattern Normal Blood Pressure 116/47 L 116/47 L Blood Pressure Mean 70 Pulse Ox 95 95 Oxygen Delivery Method Room Air Nasal Cannula Nasal Cannula Oxygen Flow Rate (L/min) 2 2 04/25/22 12:54 04/25/22 12:35 04/25/22 13:00 Temperature 98 F Temperature Source Temporal Pulse Rate 78 78 71 Respiratory Rate 25 H 25 H 17 Respiratory Effort Respiratory Depth Respiratory Pattern Blood Pressure 107/43 L 107/43 L 118/42 L Blood Pressure Mean 64 64 67 Pulse Ox 93 93 96 Oxygen Delivery Method Nasal Cannula Nasal Cannula Nasal Cannula Oxygen Flow Rate (L/min) 2 2 2 04/25/22 13:00 04/25/22 14:13 04/25/22 14:59 Temperature 98 F 97.6 F L 97.6 F L Temperature Source Temporal Temporal Oral Pulse Rate 71 67 118 H Respiratory Rate 17 16 20 H Respiratory Effort Respiratory Depth Respiratory Pattern Blood Pressure 118/72 111/64 118/76 Blood Pressure Mean 87 79 90 Pulse Ox 96 97 100 Oxygen Delivery Method Nasal Cannula Nasal Cannula Nasal Cannula Oxygen Flow Rate (L/min) 2 2 2 04/25/22 15:02 Temperature 97.6 F L Temperature Source Oral Pulse Rate 84 Respiratory Rate 18 Respiratory Effort Respiratory Depth Respiratory Pattern Blood Pressure 118/74 Blood Pressure Mean 88 Pulse Ox 97 Oxygen Delivery Method Nasal Cannula Oxygen Flow Rate (L/min) 2 Weight Weight: 155 lb 3.287 oz Body Mass Index (BMI) 24.3 Physical Exam Const oriented x3 General Appearance: cooperative and lethargic HEENT normocephalic and head/scalp atraumatic Eyes conjunctivae normal and no scleral icterus Neck supple General: trachea midline Lymph Lymphatic: no lymphadenopathy noted Resp normal respiratory effort Resp Narrative: coarse breath sounds bilateral Effort and Inspection: able to speak in complete sentences and symmetric chest movement Cardio regular rate, regular rhythm, S1 normal heart sound, S2 normal heart sound and peripheral pulses 2+ throughout GI normal to inspection, nondistended, normoactive bowel sounds, soft to palpation and non-tender Extremity no clubbing, cyanosis or edema Skin Wound Narrative: Patient has a chronic open wound to the right lateral calf. Neuro no focal motor deficits and no sensory deficits noted Speech: speech normal Motor Exam: general weakness Psych thought process normal and cooperative Results Lab / Micro Data Result Diagrams: 04/25/22 11:40 04/25/22 11:40 Labs: Laboratory Results - last 24 hr 04/25/22 11:40: WBC 17.8 H, RBC 3.69 L, Hgb 12.3 L, Hct 36.5 L, MCV 98.9 H, MCH 33.3 H, MCHC 33.7, RDW Std Deviation 61.0 H, RDW Coeff of Omer 17.1 H, Plt Count 127 L, MPV 12.1 H, Immature Gran % (Auto) 0.700, Neut % (Auto) 84.5 H, Lymph % (Auto) 5.9 L, [place] % (Auto) 8.7, Eos % (Auto) 0.1, Baso % (Auto) 0.1, Absolute Neuts (auto) 15.0 H, Absolute Lymphs (auto) 1.04, Nucleated RBC % 0, Differential Comment SCANNED, Diff Path Review March foll 04/25/22 11:40: Sodium 139, Potassium 4.6, Chloride 99, Carbon Dioxide 32.0, Anion Gap 8, BUN 41 H, Creatinine 6.18 H, Estim Creat Clear Calc 7.87, Est GFR (MDRD) Af Amer 11 L, Est GFR (MDRD) Non-Af 9 L, BUN/Creatinine Ratio 6.6 L, Glucose 91, Calcium 9.1, Total Bilirubin 2.40 H, AST 36, ALT 30, Alkaline Phosphatase 150 H, Total Protein 6.8, Albumin 2.6 L, Globulin 4.2, Albumin/Globulin Ratio 0.6 L Rhythm Strip Rhythm Strip: A-fib Rate: 84 Radiology Impression Chest X-Ray 04/25/22 11:47 IMPRESSION: Interval enlargement of nodular opacity along the right minor fissure associated with interval enlargement of a right pleural effusion that appears loculated within the right upper lung; the nodular opacity may be secondary to loculated fluid within the minor fissure as well. Cardiomegaly. Electronically Signed: Tarsha Peoples MD at 13:34 EDT , Hip/Pelvis X-Ray 04/25/22 11:47 IMPRESSION: Degenerative changes. Electronically Signed: Tarsha Peoples MD at 13:36 EDT Reading Location ID and State: [facility] / [place] Tel , Service support , Tibia/Fibula X-Ray 04/25/22 11:47 IMPRESSION: Soft tissue swelling with air or ulceration in the soft tissues of the right leg. No acute osseous abnormality identified. Electronically Signed: Melita Taveras MD at 12:50 EDT , Chest X-Ray 04/25/22 14:12 IMPRESSION: Right pleural effusion that appears to be at least partially free flowing. Cardiomegaly. Electronically Signed: Tarsha Peoples MD at 15:01 EDT , Assessment & Plan Assessment/Plan (1) Leg wound, right: (2) Adult failure to thrive: PLAN: Plan 1. Leukocytosis -Admit to MedSurg -Blood and urine cultures pending -Urinalysis pending -Patient initiated on vancomycin and Zosyn 2. Right pleural effusion secondary to right lung nodule -Discussed finding with patient and family who will discuss how aggressive they want to investigate nodule 3. Failure to thrive -PT and OT to eval and treat -CBC and BMP daily -Vital signs per protocol 4. Chronic right leg wound -Wound culture and blood cultures ordered -Consult wound nurse 5. End-stage renal disease with dialysis -Tuesday dialysis, patient sees Dr. Carlton -Consult placed for Dr. Carlton -Daily weights -Renal diet -Continue midodrine 6. Hyperlipidemia -Continue atorvastatin DVT prophylaxis-subcu heparin This patient was seen by FRANCA BowerC under the supervision of Dr. Campbell. 29 minutes spent in clinical coordination of patient's plan of care. Documented by User: Dr. Topher Campbell MD 04/25/22 16:51 HPI - General General Date of Admission: 04/25/22 [facility] Medical History History of heart attack Hyperlipidemia Kidney failure Pacemaker Home Medications Jenifer-Venessa kidneys 12/26/21 [History Last Taken 04/24/22 10:00] clopidogrel 75 mg tablet 75 mg PO DAILY blood 12/26/21 [History Last Taken 04/24/22 10:00] fluticasone fur. 100 mcg-umeclid 62.5 mcg-vilant 25 mcg inhalat.powder (Trelegy Ellipta) inhalation inhaler 12/26/21 [History Last Taken 04/24/22 10:00] midodrine 10 mg tablet 10 mg PO DAILY pre dialysis 12/26/21 [History Last Taken 04/23/22 10:00] pantoprazole 40 mg tablet,delayed release 40 mg PO DAILY acid 12/26/21 [History Last Taken 04/24/22 10:00] sertraline 25 mg tablet mg mood 12/26/21 [History Last Taken 04/24/22 10:00] tamsulosin 0.4 mg capsule mg PO prostate 12/26/21 [History Last Taken 04/24/22 10:00] atorvastatin 40 mg tablet 40 tab PO DAILY cholesterol 04/25/22 [History Last Taken 04/24/22 10:00] Allergy/AdvReac Type Severity Reaction Status Date / Time No Known Allergies Allergy Verified 04/14/22 09:48 Social History household members: none Smoking Status: Current every day smoker tobacco type: cigarettes substance use type: does not use Results Lab / Micro Data Result Diagrams: 04/25/22 11:40 04/25/22 11:40 Assessment & Plan Assessment/Plan (1) Leg wound, right: (2) Adult failure to thrive: PLAN: Plan 1. Leukocytosis probable pneumonia -Admit to MedSur -Blood and urine cultures pending -Urinalysis pending -Patient initiated on vancomycin and Zosyn 2. Right pleural effusion secondary to right lung nodule -Discussed finding with patient and family who will discuss how aggressive they want to investigate nodule 3. Failure to thrive -PT and OT to eval and treat -CBC and BMP daily -Vital signs per protocol 4. Chronic right leg wound -Wound culture and blood cultures ordered -Consult wound nurse 5. End-stage renal disease with dialysis -Tuesday dialysis, patient sees Dr. Carlton -Consult placed for Dr. Carlton -Daily weights -Renal diet -Continue midodrine 6. Hyperlipidemia -Continue atorvastatin DVT prophylaxis-subcu heparin This patient was seen by Bonnie Castro, TERRENCE-C under the supervision of Dr. Campbell. 29 minutes spent in clinical coordination of patient's plan of care. Charges/Coding Addendum Addendum: Addendum: Dr. Campbell I personally examined the patient and reviewed the chart. I agree with the above. 87-year-old male presents to the hospital with fatigue, shortness of breath, and worsening leg wound. He was in the hospital 14 April and at the time was only really complaining of leg wound. He was sent home at that time but presents again because of worsening shortness of breath needing 2 L of oxygen currently when he does not wear any at home as well as fatigue and his right leg wound is now draining. In the ER he was found to have a right pleural effusion that was read as possible loculation as well as a mass. The patient and his son were unaware that he ever had a mass, repeat decubitus film was obtained which demonstrated that the effusion was layering so he was admitted with IV antibiotics. We will obtain a sputum culture as well as a wound culture and a blood culture. Also consult wound care for assistance. Would also recommend that once his acute issues are resolved to have him follow-up for repeat imaging and/or evaluation by his PCP for diagnostic studies on this lung mass. We will consult nephrology for dialysis but in the meantime we will give him a small 500 cc bolus secondary to the dehydration. He did have about 1.9 L removed on Tuesday. Clinical time spent in all aspects of patient care: 45 minutes Visit Charges Inpatient E&M: 81676 Init Hosp L3
--- NOTE | 2022-04-25 17:35 | PCM.RX.CS ---
Consult Pharmacy has been consulted to manage selected antiobiotic: Vancomycin Type of Consult: New start Suspected Infection: Pneumonia Labs: Sodium 139 mmol/L (136-145) 04/25/22 11:40 Potassium 4.6 mmol/L (3.5-5.1) 04/25/22 11:40 Chloride 99 mmol/L (98-107) 04/25/22 11:40 Carbon Dioxide 32.0 mmol/L (21.0-32.0) 04/25/22 11:40 Anion Gap 8 (5-15) 04/25/22 11:40 BUN 41 mg/dL (7-18) H 04/25/22 11:40 Creatinine 6.18 mg/dL (0.70-1.30) H 04/25/22 11:40 Est GFR (MDRD) Af Amer 11 mL/min (>60) L 04/25/22 11:40 Est GFR (MDRD) Non-Af 9 mL/min (>60) L 04/25/22 11:40 BUN/Creatinine Ratio 6.6 RATIO (10-20) L 04/25/22 11:40 Glucose 91 mg/dL (74-106) 04/25/22 11:40 Goal Trough: 15-20 mcg/mL Pharmacy Plan for Drug Dosing: NEW START IV VANCOMYCIN Consulting Physician: Dr. Campbell Indication: Pneumonia Goal Trough: 15-20 SrCr: HD Patient- gets HD M/W/F as outpatient Comments: Loading dose of 1500mg IV x1 ordered and sent to be administered. Vancomcyin Dose: Will dose based off of pre-HD levels. Will follow-up in the morning regarding a second dose which will be determined by when the pt is to get HD next. If patient to get HD tomorrow, will give the 2nd dose post-HD Pending Level: Pending HD schedule- if pt does stay on normal M/W/F schedule, trough will be with AM labs on 04/28 Pharmacy Service will continue to monitor and adjust dosing as required.
[2022-04-25] MEDS: Heparin Injection (Vial) 5,000 UNIT/ML VIAL 5000 UNIT SC (21:25)
[2022-04-25] MEDS: Atorvastatin Calcium 40 MG Tablet PO (21:26)
[2022-04-26 03:29] VITALS: BP 113/53; PULSE 82; RESP 16; TEMP 36.4; O2SAT 92
[2022-04-26 05:26] LABS: Absolute Lymphocyte Count 0.86 X10^3/uL (0.83-4.51); Absolute Neutrophil Count 9.1 X10^3/uL (2.0-7.7); Basophil# 0.01 X10^3/uL; Basophil% 0.1 % (0-1); Eosinophils% 0.9 % (0-5); Hematocrit 33.5 % (40-54); Hemoglobin 11.3 g/dL (13.0-16.5); Lymphocyte # 0.86 X10^3/ul (0.83-4.51); Lymphocyte % 7.7 % (19-41); Mean Corp Hgb Conc 33.7 g/dL (32-36); Mean Corpuscular Hgb 32.7 pg (27.0-32.0); Mean Corpuscular Volume 96.8 fL (80-94); Mean Platelet Vol. 11.8 fl (6.2-12.0); Monocyte# 1.02 X10^3/uL; Monocyte% 9.2 % (0-10); NRBC Flagged by Analyzer 0 % (0-5); Neutrophil # 9.05 X10^3/uL (2.7-7.7); Neutrophil % 81.5 % (47-70); Platelet Count 112 K/mm3 (150-450); RBC Distribution Width CV 16.8 % (11.6-14.6); RBC Distribution Width SD 60.2 fl (35.1-43.9); Red Blood Count 3.46 M/mm3 (4.6-6.2); White Blood Count 11.1 K/mm3 (4.4-11.0)
[2022-04-26 05:40] LABS: Anion Gap 9 (5-15); BUN 52 mg/dL (7-18); Calcium,Total 8.5 mg/dL (8.5-10.1); Chloride 101 mmol/L (98-107); Creatinine, Serum 6.53 mg/dL (0.70-1.30); EST Glomerular Filtration Rate 9 mL/min (>60); Est Glom Filt Rate - Afr Amer 10 mL/min (>60); Estimated Creatinine Clearance 7.45 ml/min; Glucose 91 mg/dL (74-106); Potassium 4.2 mmol/L (3.5-5.1); Sodium Level 139 mmol/L (136-145)
--- NOTE | 2022-04-26 07:53 | CON.PCM.RE_ITS ---
Assessment & Plan Assessment/Plan (1) History of end stage renal disease: (2) Leukocytosis: (3) Adult failure to thrive: (4) Anemia in chronic kidney disease: PLAN: Plan Patient was admitted to the hospital after presenting with weakness, decreased appetite, also found to have white count of 18,000, chest x-ray concerning for possible pneumonia and right leg wound. Patient has a history of end-stage paulino l disease currently dialyzes Tuesday. We will plan for dialysis today over 3.5 hours. Apparently patient has been losing weight, last known dry weight was 72 kg. Patient dialyzed on Tuesday, April 23 and post HD weight 69.2 kg. Patient will have a new lowered dry weight by time of discharge. Patient has history of intradialytic hypotension and receives midodrine, please continue midodrine as ordered. Patient has a history of anemia of chronic disease, currently hemoglobin is acceptable at 11.3g/dL. Xray of right lower leg, no acute abnormality identified. Wound cultures pending. Blood cultures are pending. Patient is on IV antibiotics, Zosyn. PT/OT and wound care ordered. We will order protein supplement. Further orders forthcoming as hospitalization evolves. Thank you for allowing us to participate in the care of Mr. Tang. HPI Consult Data Date of Consult: 04/26/22 HPI Narrative HPI Narrative: PADMINI TANG, is a 87 M who presented to the emergency room yesterday with family because of worsening weakness, decreased appetite for a few weeks. Work- up in the emergency room concerning for possible pneumonia. Patient admitted for further evaluation and treatment. Patient has a history of end-stage renal disease and currently dialyzes at [facility] [place] in [place] on a Tuesday schedule. He last dialyzed on Tuesday. Per kidney center nurse, apparently appetite has been poor for the last few weeks and patient has been losing weight. [facility] Medical History History of heart attack Hyperlipidemia Kidney failure Pacemaker Home Medications Paulino-Venessa 0.8 mg PO/SL DAILY kidneys 12/26/21 [History Last Taken 04/24/22 10:00] clopidogrel 75 mg tablet 75 mg PO DAILY blood 12/26/21 [History Last Taken 04/24/22 10:00] fluticasone fur. 100 mcg-umeclid 62.5 mcg-vilant 25 mcg inhalat.powder (Trelegy Ellipta) inhalation inhaler 12/26/21 [History Last Taken 04/24/22 10:00] midodrine 10 mg tablet 10 mg PO DAILY pre dialysis 12/26/21 [History Last Taken 04/23/22 10:00] pantoprazole 40 mg tablet,delayed release 40 mg PO DAILY acid 12/26/21 [History Last Taken 04/24/22 10:00] sertraline 25 mg tablet 25 mg PO DAILY mood 12/26/21 [History Last Taken 04/24/22 10:00] tamsulosin 0.4 mg capsule 0.4 mg PO DAILY prostate 12/26/21 [History Last Taken 04/24/22 10:00] atorvastatin 40 mg tablet 40 tab PO DAILY cholesterol 04/25/22 [History Last Taken 04/24/22 10:00] Allergy/AdvReac Type Severity Reaction Status Date / Time No Known Allergies Allergy Verified 04/14/22 09:48 Social History household members: none Smoking Status: Current every day smoker tobacco type: cigarettes substance use type: does not use ROS ROS Narrative Per HPI past medical history Physical Exam Narrative Const: Alert and oriented x3 Respiratory: Lungs clear anteriorly diminished breath sounds posterior bases. No wheezes rhonchi rales noted Cardio: S1-S2, RRR GI: Abdomen soft, nontender, positive bowel sounds x4 quadrants Extremities: No pitting edema. Carlos wrap and dressing intact to right lower leg AV fistula right upper arm positive thrill and bruit noted Lab / Micro Data Result Diagrams: 04/26/22 05:20 04/26/22 05:20 Labs: Laboratory Results - last 24 hr 04/25/22 11:40: WBC 17.8 H, RBC 3.69 L, Hgb 12.3 L, Hct 36.5 L, MCV 98.9 H, MCH 33.3 H, MCHC 33.7, RDW Std Deviation 61.0 H, RDW Coeff of Omer 17.1 H, Plt Count 127 L, MPV 12.1 H, Immature Gran % (Auto) 0.700, Neut % (Auto) 84.5 H, Lymph % (Auto) 5.9 L, [place] % (Auto) 8.7, Eos % (Auto) 0.1, Baso % (Auto) 0.1, Absolute Neuts (auto) 15.0 H, Absolute Lymphs (auto) 1.04, Nucleated RBC % 0, Differential Comment SCANNED, Diff Path Review March foll 04/25/22 11:40: Sodium 139, Potassium 4.6, Chloride 99, Carbon Dioxide 32.0, Ani on Gap 8, BUN 41 H, Creatinine 6.18 H, Estim Creat Clear Calc 7.87, Est GFR (MDRD) Af Amer 11 L, Est GFR (MDRD) Non-Af 9 L, BUN/Creatinine Ratio 6.6 L, Glucose 91, Calcium 9.1, Total Bilirubin 2.40 H, AST 36, ALT 30, Alkaline Phosphatase 150 H, Total Protein 6.8, Albumin 2.6 L, Globulin 4.2, Albumin/Tonya bulin Ratio 0.6 L 04/26/22 05:20: WBC 11.1 H, RBC 3.46 L, Hgb 11.3 L, Hct 33.5 L, MCV 96.8 H, MCH 32.7 H, MCHC 33.7, RDW Std Deviation 60.2 H, RDW Coeff of Omer 16.8 H, Plt Count 112 L, MPV 11.8, Immature Gran % (Auto) 0.600, Neut % (Auto) 81.5 H, Lymph % (Auto) 7.7 L, [place] % (Auto) 9.2, Eos % (Auto) 0.9, Baso % (Auto) 0.1, Absolute Neuts (auto) 9.1 H, Absolute Lymphs (auto) 0.86, Nucleated RBC % 0 04/26/22 05:20: Sodium 139, Potassium 4.2, Chloride 101, Carbon Dioxide 29.0, Anion Gap 9, BUN 52 H, Creatinine 6.53 H, Estim Creat Clear Calc 7.45, Est GFR (MDRD) Af Amer 10 L, Est GFR (MDRD) Non-Af 9 L, BUN/Creatinine Ratio 8.0 L, Glucose 91, Calcium 8.5 Rhythm Strip Rhythm Strip: A-fib Rate: 84 Radiology Impression Chest X-Ray 04/25/22 11:47 IMPRESSION: Interval enlargement of nodular opacity along the right minor fissure associated with interval enlargement of a right pleural effusion that appears loculated within the right upper lung; the nodular opacity may be secondary to loculated fluid within the minor fissure as well. Cardiomegaly. Electronically Signed: Tarsha Peoples MD at 13:34 EDT , Hip/Pelvis X-Ray 04/25/22 11:47 IMPRESSION: Degenerative changes. Electronically Signed: Tarsha Peoples MD at 13:36 EDT , Tibia/Fibula X-Ray 04/25/22 11:47 IMPRESSION: Soft tissue swelling with air or ulceration in the soft tissues of the right leg. No acute osseous abnormality identified. Electronically Signed: Melita Taveras MD at 12:50 EDT , Chest X-Ray 04/25/22 14:12 IMPRESSION: Right pleural effusion that appears to be at least partially free flowing. Cardiomegaly. Electronically Signed: Tarsha Peoples MD at 15:01 EDT ,
[2022-04-26 08:12] VITALS: BP 112/59; PULSE 62; RESP 18; TEMP 36.6; O2SAT 95
--- NOTE | 2022-04-26 08:17 | PCM.RX.CS ---
Consult Pharmacy has been consulted to manage selected antiobiotic: Vancomycin Type of Consult: Follow-up Labs: Sodium 139 mmol/L (136-145) 04/26/22 05:20 Potassium 4.2 mmol/L (3.5-5.1) 04/26/22 05:20 Chloride 101 mmol/L (98-107) 04/26/22 05:20 Carbon Dioxide 29.0 mmol/L (21.0-32.0) 04/26/22 05:20 Anion Gap 9 (5-15) 04/26/22 05:20 BUN 52 mg/dL (7-18) H 04/26/22 05:20 Creatinine 6.53 mg/dL (0.70-1.30) H 04/26/22 05:20 Est GFR (MDRD) Af Amer 10 mL/min (>60) L 04/26/22 05:20 Est GFR (MDRD) Non-Af 9 mL/min (>60) L 04/26/22 05:20 BUN/Creatinine Ratio 8.0 RATIO (10-20) L 04/26/22 05:20 Glucose 91 mg/dL (74-106) 04/26/22 05:20 Goal Trough: 15-20 mcg/mL Pharmacy Plan for Drug Dosing: DAILY ASSESSMENT Current Vancomycin Dose: 1500MG IV X1 INITIAL DOSE ADMINISTERED YESTERDAY Number of Doses Received: 1 (LOADING DOSE) Current Renal Function: ON HEMODIALYSIS - // SCHEDULE Lab/Micro: BCX/WCX PENDING Any Change in Vanc Plan: Patient is to get HD today per nephrology. Patient gets HD on a // scheduled basis. Will administer 500mg IV x1 today after HD session. Trough will be ordered for Tuesday AM, and dosing will be based off of pre-HD levels. Pending Level: 04/28/22 with AM labs (Pre-HD) Pharmacy Service will continue to monitor and adjust dosing as required.
--- NOTE | 2022-04-26 08:44 | WOUNDNOTE ---
Podiatry has been consulted to evaluate right lower leg wound.
--- NOTE | 2022-04-26 08:49 | WOUNDNOTE ---
wound photo: right lower leg
--- NOTE | 2022-04-26 10:03 | PN.HOSP_ITS ---
Documented by User: RICKEY Bower 04/26/22 10:16 Subjective Subjective Patient seen and examined. Patient sitting in bed no distress noted. Patient states that he is not feeling short of breath and is on room air with a O2 sat of 95%. Objective Data Objective Data Vital Signs: Vital Signs Temp Pulse Resp BP Pulse Ox 97.8 F 62 18 112/59 L 95 04/26/22 08:12 04/26/22 08:12 04/26/22 08:12 04/26/22 08:12 04/26/22 08:12 Oxygen Flow Rate (L/min) 94 Oxygen Delivery Method Room Air Weight: 152 lb 5.431 oz Body Mass Index (BMI) 23.2 Intake & Output: Intake and Output for Last 24 Hours 04/24/22 04/25/22 04/26/22 23:59 23:59 23:59 Intake Total 630.25 / 630.25 1350 / 1350 Output Total 0 / 0 Balance 630.25 / 630.25 1350 / 1350 Lab / Micro Data Result Diagrams: 04/26/22 05:20 04/26/22 05:20 Labs: Laboratory Results - last 24 hr 04/25/22 11:40: WBC 17.8 H, RBC 3.69 L, Hgb 12.3 L, Hct 36.5 L, MCV 98.9 H, MCH 33.3 H, MCHC 33.7, RDW Std Deviation 61.0 H, RDW Coeff of Omer 17.1 H, Plt Count 127 L, MPV 12.1 H, Immature Gran % (Auto) 0.700, Neut % (Auto) 84.5 H, Lymph % (Auto) 5.9 L, Mclennan % (Auto) 8.7, Eos % (Auto) 0.1, Baso % (Auto) 0.1, Absolute Neuts (auto) 15.0 H, Absolute Lymphs (auto) 1.04, Nucleated RBC % 0, Differential Comment SCANNED, Diff Path Review March04/25/22 11:40: Sodium 139, Potassium 4.6, Chloride 99, Carbon Dioxide 32.0, Anion Gap 8, BUN 41 H, Creatinine 6.18 H, Estim Creat Clear Calc 7.87, Est GFR (MDRD) Af Amer 11 L, Est GFR (MDRD) Non-Af 9 L, BUN/Creatinine Ratio 6.6 L, Glucose 91, Calcium 9.1, Total Bilirubin 2.40 H, AST 36, ALT 30, Alkaline Phosphatase 150 H, Total Protein 6.8, Albumin 2.6 L, Globulin 4.2, Albumin/Glob ulin Ratio 0.6 L 04/26/22 05:20: WBC 11.1 H, RBC 3.46 L, Hgb 11.3 L, Hct 33.5 L, MCV 96.8 H, MCH 32.7 H, MCHC 33.7, RDW Std Deviation 60.2 H, RDW Coeff of Omer 16.8 H, Plt Count 112 L, MPV 11.8, Immature Gran % (Auto) 0.600, Neut % (Auto) 81.5 H, Lymph % (Auto) 7.7 L, Mclennan % (Auto) 9.2, Eos % (Auto) 0.9, Baso % (Auto) 0.1, Absolute Neuts (auto) 9.1 H, Absolute Lymphs (auto) 0.86, Nucleated RBC % 0 04/26/22 05:20: Sodium 139, Potassium 4.2, Chloride 101, Carbon Dioxide 29.0, Anion Gap 9, BUN 52 H, Creatinine 6.53 H, Estim Creat Clear Calc 7.45, Est GFR (MDRD) Af Amer 10 L, Est GFR (MDRD) Non-Af 9 L, BUN/Creatinine Ratio 8.0 L, Glucose 91, Calcium 8.5 Radiography Diagnostic Testing: Radiology Impression Chest X-Ray 04/25/22 11:47 IMPRESSION: Interval enlargement of nodular opacity along the right minor fissure associated with interval enlargement of a right pleural effusion that appears loculated within the right upper lung; the nodular opacity may be secondary to loculated fluid within the minor fissure as well. Cardiomegaly. Electronically Signed: Tarsha Peoples MD at 13:34 EDT Reading Location ID and State: [facility] / [place] Tel , Service support , Hip/Pelvis X-Ray 04/25/22 11:47 IMPRESSION: Degenerative changes. Electronically Signed: Tarsha Peoples MD at 13:36 EDT , Tibia/Fibula X-Ray 04/25/22 11:47 IMPRESSION: Soft tissue swelling with air or ulceration in the soft tissues of the right leg. No acute osseous abnormality identified. Electronically Signed: Melita Taveras MD at 12:50 EDT , Chest X-Ray 04/25/22 14:12 IMPRESSION: Right pleural effusion that appears to be at least partially free flowing. Cardiomegaly. Electronically Signed: Tarsha Peoples MD at 15:01 EDT , Rhythm Strip Rhythm Strip: A-fib Rate: 84 Physical Exam Const oriented x3 General Appearance: cooperative and lethargic HEENT normocephalic and head/scalp atraumatic Eyes conjunctivae normal and no scleral icterus Neck supple General: trachea midline Lymph Lymphatic: no lymphadenopathy noted Resp normal respiratory effort Resp Narrative: coarse breath sounds bilateral Effort and Inspection: able to speak in complete sentences and symmetric chest movement Cardio regular rate, regular rhythm, S1 normal heart sound, S2 normal heart sound and peripheral pulses 2+ throughout GI normal to inspection, nondistended, normoactive bowel sounds, soft to palpation and non-tender Extremity no clubbing, cyanosis or edema Skin Wound Narrative: Patient has a chronic open wound to the right lateral calf. Neuro no focal motor deficits and no sensory deficits noted Speech: speech normal Motor Exam: general weakness Psych thought process normal and cooperative Assessment & Plan Assessment/Plan (1) Leg wound, right: (2) Adult failure to thrive: PLAN: Plan 1. Leukocytosis probable pneumonia -Blood and urine cultures pending -Urinalysis pending -Patient initiated on vancomycin and Zosyn -Oxygen therapy per protocol, currently on room air patient has not been hypoxic during admission 2. Right pleural effusion secondary to right lung nodule -Discussed finding with patient and family who will discuss how aggressive they want to investigate nodule 3. Failure to thrive -PT and OT to eval and treat -CBC and BMP daily -Vital signs per protocol 4. Chronic right leg wound -Wound culture and blood cultures pending -Consult wound nurse 5. End-stage renal disease with dialysis -Tuesday dialysis, patient sees Naz Enriquez NP following -Dialysis scheduled for today -Daily weights -Renal diet -Continue midodrine 6. Hyperlipidemia -Continue atorvastatin DVT prophylaxis-subcu heparin This patient was seen by Bonnie Castro NP-C under the supervision of Dr. Campbell. 14 minutes spent in clinical coordination of patient's plan of care. Documented by User: Dr. Topher Campbell MD 04/26/22 13:03 Objective Data Lab / Micro Data Result Diagrams: 04/26/22 05:20 04/26/22 05:20 Assessment & Plan Assessment/Plan (1) Leg wound, right: (2) Adult failure to thrive: Charges/Coding Addendum Addendum: Dr. Campbell I personally examined the patient and reviewed the chart. I agree with the above.? 87-year-old male presents to the hospital with fatigue, shortness of breath, and worsening leg wound.? He was in the hospital 14 April and at the time was only really complaining of leg wound.? He was sent home at that time but presents again because of worsening shortness of breath needing 2 L of oxygen currently when he does not wear any at home as well as fatigue and his right leg wound is now draining.? In the ER he was found to have a right pleural effusion that was read as possible loculation as well as a mass.? The patient and his son were unaware that he ever had a mass, repeat decubitus film was obtained which demonstrated that the effusion was layering so he was admitted with IV antibiotics.? We will obtain a sputum culture as well as a wound culture and a blood culture.? Also consult wound care for assistance.? Would also recommend that once his acute issues are resolved to have him follow-up for repeat imaging and/or evaluation by his PCP for diagnostic studies on this lung mass.? We will consult nephrology for dialysis but in the meantime we will give him a small 500 cc bolus secondary to the dehydration.? He did have about 1.9 L removed on Tuesday.? Clinical time spent in all aspects of patient care: 45 minutes 04/26/2022: Feels much better today with the antibiotic treatment. Also last night drainage from his leg increasing he had significant purulence. Podiatry was consulted recommending an MRI continued IV antibiotics as well as probable operative debridement with wound VAC. We will also obtain arterial studies, cultures are demonstrating gram-negative rods possible Pseudomonas. Blood culture and sputum is also pending. Clinical time spent in all aspects of patient care: 20 minutes Visit Charges Inpatient E&M: 91749 Subs Hosp L2
--- NOTE | 2022-04-26 11:18 | CASEMGMT ---
Addendum entered by Lizbeth Tejada 04/26/22 12:58: Received returned call from pt dtr. She states that pt has not been eating at home or taking care of himself. She states they have started the process of looking into AL as her brother whom the patient lives with works heel nail rasper and is unable to care for pt. Discussed HHC options and SNF. She states she would be interested in SNF as pt cannot return to live with his son. She asked for this information to be emailed to her at [email or web address]. Notified SW of this. JAS DE LA GARZA back into pt room to make pt aware of the conversation. He is agreeable to the plan and for the information to be sent to his dtr. Addendum entered by Lizbeth Tejada 04/26/22 12:13: TC to phone number provided by pt, voicemail states the phone number belongs to Cristina. JAS DE LA GARZA in to pt room, pt states he gave wrong number, that was his granddtr. Provided dtr's phone number. [phone]. Pt states he was not under any care prior to hospitalization for his leg wound. States he was dressing it himself. Dialysis nurse walking in room for dialysis as RN HOLLI leaving room. TC to pt dtr, no answer, left vm. Original Note: JAS DE LA GARZA Assessment: Face to Face with pt for initial transition planning/care coordination assessment. JAS DE LA GARZA introduced self and role at [facility], pt voices understanding and consents to assessment. Pt is O x4 and answers all questions appropriately at this time, although drowsy. Care providers, pharmacy, and demographics verified/updated. Admitting Dx: pna with hypoxia PCP:Todd Specialists:manju Maradiaga; Cardio from [facility] Preferred Pharmacy: [facility] Retail Insurance: [employer] Prescription Benefit: yes LW/HPOA: Pt reports he has a LW/DPOA. He is aware it is not on file at [facility] and he may bring in to be scanned into his chart. He states his son Aaron Tang is his DPOA. LNOK: Aaron Tang, son; Natasha Dent, dtr Living Arrangements: Pt lives with son and dil in single story house with 2 steps to enter without a rail. Pt reports he was I in ADL's prior to hospitalization and denies concerns at home. Transportation: Pt drives self and denies concerns with transportation. DME/HHC/SNF: Pt does not have any DME in the home. Denies hx of HHC or SNF stays. Pt states he is not sure what to do post hospitalization. He designates his dtr Natasha as his contact printer dry film for dc planning. Pt states he is unsure if he can return home or not. Pt does not prefer this RN CM to contact his son for dc planning. He provided phone number of his dtr. Pt has dialysis at [facility] M/W[facility]F with chair time of 7:30am. Pt states no further concerns/needs. CM to follow. Advised pt to ask CM if any further question/concerns/needs arise, voices understanding. Pt Goal: TBD Plan: TBD
--- NOTE | 2022-04-26 12:10 | CON.PCM_ITS ---
Assessment & Plan Assessment/Plan (1) Non-pressure chronic ulcer of right calf with fat layer exposed: (2) Abscess of leg without foot, right: PLAN: Plan Patient examined evaluated, all findings cussed with patient in detail. Radiographs were reviewed demonstrate soft tissue swelling with a soft tissue defect with air in the tissue likely related to the wound and underlying tracking. MRI ordered to evaluate the extent of deep abscess/hematoma formation for preoperative and decision making. Arterial and venous studies ordered as the patient has a long-term smoking history and may be at risk for wound healing complications. Incision today was redressed with iodoform packing DSD and compression dressing. Will consider wound VAC postoperatively. Cultures are growing Pseudomonas species as well as fermenting gram-negative rods likely sensitive to Zosyn patient receiving Vanco and Zosyn at this time. Consider ID consult if long-term antibiotics are to be considered. Will continue to follow the patient closely we will plan for incision and drainage of right leg abscess tomorrow 04/27 at 3 PM. Will continue to follow closely. HPI Consult Data Date of Consult: 04/26/22 HPI Narrative Reason for Consultation: right leg wound with abscess HPI Narrative: PADMINI MARSH, is a 87 M who presents 4 weeks after he bumped his right leg on his truck developed a hematoma. Patient notes that he subsequently developed an ulceration which began red swollen and draining purulent drainage. Patient denies any constitutional symptoms but notes some lethargy today. Patient notes some minor pain to site. Patient has a smoking history. Patient takes Plavix may predispose to hematoma formation. Patient denies any other complaints at t his time. [facility] Medical History History of heart attack Hyperlipidemia Kidney failure Pacemaker Home Medications Jenifer-Venessa 0.8 mg PO/SL DAILY kidneys 12/26/21 [History Last Taken 04/24/22 10:00] clopidogrel 75 mg tablet 75 mg PO DAILY blood 12/26/21 [History Last Taken 04/24/22 10:00] fluticasone fur. 100 mcg-umeclid 62.5 mcg-vilant 25 mcg inhalat.powder (Trelegy Ellipta) inhalation inhaler 12/26/21 [History Last Taken 04/24/22 10:00] midodrine 10 mg tablet 10 mg PO DAILY pre dialysis 12/26/21 [History Last Taken 04/23/22 10:00] pantoprazole 40 mg tablet,delayed release 40 mg PO DAILY acid 12/26/21 [History Last Taken 04/24/22 10:00] sertraline 25 mg tablet 25 mg PO DAILY mood 12/26/21 [History Last Taken 04/24/22 10:00] tamsulosin 0.4 mg capsule 0.4 mg PO DAILY prostate 12/26/21 [History Last Taken 04/24/22 10:00] atorvastatin 40 mg tablet 40 tab PO DAILY cholesterol 04/25/22 [History Last Taken 04/24/22 10:00] Allergy/AdvReac Type Severity Reaction Status Date / Time No Known Allergies Allergy Verified 04/14/22 09:48 Social History household members: none Smoking Status: Current every day smoker tobacco type: cigarettes substance use type: does not use ROS Constitutional Constitutional: Reports fatigue; Denies change in weight or fever(s) Eyes Eyes: Denies acute decrease in peripheral vision, change in eye color or discongugate gaze ENT HEENT: Denies abnormal hearing, bleeding gums or dysphagia Cardiovascular Cardiovascular: Reports claudication and erythema on extremities; Denies dyspnea at rest Respiratory/Chest Respiratory/Chest: Denies excessive phlegm production, nail bed cyanosis or benjamin-oral cyanosis Gastrointestinal Gastrointestinal: Denies abdominal pain, anorexia or change in stool character Physical Exam Narrative Patient alert oriented person place time. Patient seems lethargic. Vascular: Dorsalis pedis posterior tibial pulses palpable 1 out of 4 to bilateral lower extremity. There is noted to be erythema edema to right lateral leg adjacent to leg wound. Neurologic: Light touch protective sensation intact to bilateral feet. No evidence of Babinski, normal deep tendon reflexes to Achilles tendon. Dermatologic: Full-thickness ulceration right lateral leg down to the level of peroneal muscle belly. This undermines proximally distally posteriorly and anteriorly. There is noted to be a large amount of purulent drainage from the site. Along with erythema tracking proximally. Some fluctuance noted in that area. There is mild periwound erythema edema and warmth. Musculoskeletal: No pain with calf squeeze bilateral lower extremity. Muscular strength 5 out of 5 bilateral lower extremity compartments no gross deformities noted. Lab / Micro Data Result Diagrams: 04/26/22 05:20 04/26/22 05:20 Labs: Laboratory Results - last 24 hr 04/25/22 11:40: Differential Comment SCANNED, Diff Path Review March04/25/22 11:40: Sodium 139, Potassium 4.6, Chloride 99, Carbon Dioxide 32.0, Anion Gap 8, BUN 41 H, Creatinine 6.18 H, Estim Creat Clear Calc 7.87, Est GFR (MDRD) Af Amer 11 L, Est GFR (MDRD) Non-Af 9 L, BUN/Creatinine Ratio 6.6 L, Glucose 91, Calcium 9.1, Total Bilirubin 2.40 H, AST 36, ALT 30, Alkaline Phosphatase 150 H, Total Protein 6.8, Albumin 2.6 L, Globulin 4.2, Albumin/Globulin Ratio 0.6 L 04/26/22 05:20: WBC 11.1 H, RBC 3.46 L, Hgb 11.3 L, Hct 33.5 L, MCV 96.8 H, MCH 32.7 H, MCHC 33.7, RDW Std Deviation 60.2 H, RDW Coeff of Omer 16.8 H, Plt Count 112 L, MPV 11.8, Immature Gran % (Auto) 0.600, Neut % (Auto) 81.5 H, Lymph % (Auto) 7.7 L, [place] % (Auto) 9.2, Eos % (Auto) 0.9, Baso % (Auto) 0.1, Absolute Neuts (auto) 9.1 H, Absolute Lymphs (auto) 0.86, Nucleated RBC % 0 04/26/22 05:20: Sodium 139, Potassium 4.2, Chloride 101, Carbon Dioxide 29.0, Anion Gap 9, BUN 52 H, Creatinine 6.53 H, Estim Creat Clear Calc 7.45, Est GFR (MDRD) Af Amer 10 L, Est GFR (MDRD) Non-Af 9 L, BUN/Creatinine Ratio 8.0 L, Glucose 91, Calcium 8.5 Micro: Microbiology 04/25/22 16:37 Wound - Leg, Right Gram Stain - Final 04/25/22 16:37 Wound - Leg, Right Wound Culture - 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 Cardiomegaly. Electronically Signed: Tarsha Peoples MD at 13:34 EDT , Hip/Pelvis X-Ray 04/25/22 11:47 IMPRESSION: Degenerative changes. Electronically Signed: Tarsha Peoples MD at 13:36 EDT , Tibia/Fibula X-Ray 04/25/22 11:47 IMPRESSION: Soft tissue swelling with air or ulceration in the soft tissues of the right leg. No acute osseous abnormality identified. Electronically Signed: Melita Taveras MD at 12:50 EDT , Chest X-Ray 04/25/22 14:12 IMPRESSION: Right pleural effusion that appears to be at least partially free flowing. Cardiomegaly. Electronically Signed: Tarsha Peoples MD at 15:01 EDT ,
--- NOTE | 2022-04-26 12:11 | WOUNDNOTE ---
Dr Fishman in to see patient and assess the right lower leg wound. plan is to take patient to surgery tomorrow.
[2022-04-26] MEDS: Midodrine HCl 5 MG Tablet 10 MG PO (12:15)
--- NOTE | 2022-04-26 12:18 | ART_ITS ---
Reason For Study: Ulcer Procedure A bilateral lower extremity continuous wave Doppler with analog waveform analysis,segmental pressures,and ankle brachial indexes without exercise. Left Segmental Pressures Left brachial= 110mmHg. Left posterior tibial artery = 99mmHg. Left dorsalis pedis artery = 69mmHg. Left digit = 38 mmHg. The left posterior tibial artery waveforms are triphasic. The left dorsalis pedis waveforms are biphasic. Right Segmental Pressures Right posterior tibial artery = 93mmHg. Right dorsalis pedis artery = 72mmHg. Right digit = 47 mmHg. The right dorsalis pedis waveforms are triphasic. The right posterior tibial artery waveforms are triphasic. Indices The right ankle brachial index by the dorsalis pedis is 0.65. The right ankle brachial index by the posterior tibial artery is 0.85. The right digital-brachial index is 0.43. The left ankle brachial index by the dorsalis pedis is 0.63. The left ankle brachial index by the posterior tibial artery is 0.90. The left digital-brachial index is 0.35. VL/Lower Ext Art Exam w/o Exercis Interpretation Summary Triphasic Doppler waveforms are noted at ankle level on the right. Triphasic an d biphasic Doppler waveforms are noted at ankle level on the left. Pulse-volume recordings appear diminished at digital level bilaterally. The resting right ankle-brachial index is mildly diminished. The resting left ankle-brachial index is low-normal. Digital-brachial indices are moderately dim inished bilaterally. There is evidence of mild arterial occlusive disease at ankle level on the righ t. Arterial flow appears relatively normal at ankle level on the left. There is evidence of yessi osomal/regional arterial occlusive disease bilaterally. There is evidence of moderate arterial occlusive disease at digital level bilaterally. Ordering Physician: Ramón Fishman Referring Physician: Michael Brooks M.D. Performed By: Willinger, Linda, RVT
--- NOTE | 2022-04-26 12:18 | VDLE_ITS ---
Reason For Study: Swelling RIGHT LEFT GSV is normal. GSV is normal. CFV is compressible, spontaneous, competent CFV is compressible, spontaneous, competent, and demonstrates pulsatile venous flow. and demonstrates pulsatile venous flow. FV is compressible, spontaneous, competent FV is compressible, spontaneous, competent and demonstrates pulsatile venous flow. and demonstrates pulsatile venous flow. POP V is compressible, spontaneous, competent POP V is compressible, spontaneous, competent and demonstrates pulsatile venous flow. and demonstrates pulsatile venous flow. T/P Trunk is compressible. T/P Trunk is compressible. PTV is compressible. PTV is compressible. RT PerV is compressible. LT PerV is compressible. Procedure This is a venous duplex using B-mode, color flow and spectral Doppler. Exam performed in department. A preliminary report was called and/or faxed to [facility]. VL/Venous Duplex US - Reyes Extrem Interpretation Summary Deep veins of the lower extremities are bilaterally patent and compressible seg mentally. There is no evidence of deep vein thrombosis on either side. Valvular competence appears in tact within the proximal deep venous systems bilaterally. The great saphenous veins appear bila terally patent and compressible segmentally. Pulsatile flow is noted in the deep venous system reyes aterally, which may be indicative of elevated central venous pressure (i.e. congestive heart failur e, pulmonary hypertension, etc.). Clinical correlation is advised. Ordering Physician: Ramón Fishman Referring Physician: Michael Brooks M.D. Performed By: Linda Tran RVT
--- NOTE | 2022-04-26 13:22 | CASEMGMT ---
Social Work Consult: half-way placement Referral source: before school babysitter This case management social worker met with patient in room. Introduced self and case management social worker role. This case management social worker broached topic of fpc placement for patient. Patient agreeable to fpc placement and request for this case management social worker to reach out to patient daughterNatasha ([phone]) to work on placement options. Patient state do whatever. Patient currently getting Dialysis and appears to be tired. Active support and listening provided. Per RN Lizbeth DE LA GARZA. Lizbeth reports to have spoken with [facility] request for list of nursing homes to be e-mailed to [email or web address]. This case management social worker sent e-mail of in-network nursing facilities that are local to patient geographical region. PLAN: half-way placement. Will continue to follow. Katherine CREWS, LIAM
[2022-04-26 13:34] LABS: Pathologist Review Reviewed
[2022-04-26 15:33] VITALS: BP 97/40; PULSE 70; RESP 18; TEMP 36.1; O2SAT 97
--- NOTE | 2022-04-26 15:52 | CHAPLAIN ---
Type of Pastoral Visit ___ Initial Visit ___ Follow-up Visit ___ On-call Visit ___ General Patient Visit ___ Spiritual Assessment ___ Family Conference ___ Bereavement ___ Rapid Response ___ Code Blue _x__ Other (describe below) Pastoral Care Referral From ___ Patient ___ Family ___ Nurse ___ Physician ___ Blueprint Maker ___ Speedometer Mechanic ___ Other (describe below) Sacrament/Intervention ___ Active listening ___ Anointing ___ Mormon ___ Bereavement ___ Communion ___ Sita exploration ___ ___ Life review ___ Prayer ___ Reconciliation ___ Sacrament of Sick ___ Supportive presence ___ Wedding ___ Other (describe below) Pastoral Comments patient was getting dialysis and was sleeping; RN stated that pt had not slept last night so decided it best to come back tomorrow for a better time to visit
--- NOTE | 2022-04-26 16:13 | DIALYSIS ---
HD x 3 hours complete. Tolerated tx well. Ran on 3k bath. UF of 2000ml. Used right arm access. [place] removed post tx and pressure applied x 10 minutes. Hemostasis achieved. Fresh gauze and tape applied. Report was given to JAS Salgado.
[2022-04-26] MEDS: Vancomycin IV 500 MG/100 ML BAG 100 MG IV (18:07)
[2022-04-26] MEDS: Pantoprazole Sodium 40 MG Tablet PO (18:08)
[2022-04-26 21:50] VITALS: BP 105/90; PULSE 56; RESP 16; TEMP 36.6; O2SAT 100
[2022-04-26] MEDS: Atorvastatin Calcium 40 MG Tablet PO (21:52)
[2022-04-26 22:20] VITALS: O2SAT 100
[2022-04-27] VITALS (14 sets, daily range): BP systolic 91–119; BP diastolic 44–58; PULSE 62–89; RESP 16–18; TEMP 36.2–36.7; O2SAT 92–99; BMI 23.6
[2022-04-27 06:16] LABS: Absolute Lymphocyte Count 0.96 X10^3/uL (0.83-4.51); Absolute Neutrophil Count 5.4 X10^3/uL (2.0-7.7); Basophil# 0.02 X10^3/uL; Basophil% 0.3 % (0-1); Eosinophil# 0.21 X10^3/uL; Eosinophils% 2.7 % (0-5); Hemoglobin 10.9 g/dL (13.0-16.5); Lymphocyte # 0.96 X10^3/ul (0.83-4.51); Lymphocyte % 12.4 % (19-41); Mean Corp Hgb Conc 34.1 g/dL (32-36); Mean Corpuscular Hgb 32.8 pg (27.0-32.0); Mean Corpuscular Volume 96.4 fL (80-94); Monocyte# 1.11 X10^3/uL; Monocyte% 14.3 % (0-10); NRBC Flagged by Analyzer 0 % (0-5); Neutrophil # 5.43 X10^3/uL (2.7-7.7); Neutrophil % 69.8 % (47-70); Platelet Count 107 K/mm3 (150-450); RBC Distribution Width CV 16.7 % (11.6-14.6); RBC Distribution Width SD 58.4 fl (35.1-43.9); Red Blood Count 3.32 M/mm3 (4.6-6.2); White Blood Count 7.8 K/mm3 (4.4-11.0)
[2022-04-27 06:48] LABS: BUN 36 mg/dL (7-18); Glucose 101 mg/dL (74-106)
[2022-04-27 06:49] LABS: ALB/GLOB Ratio 0.6 RATIO (0.9-2.4); AST(SGOT) 54 U/L (15-37); Alanine Aminotransfer ALT/SGPT 37 U/L (16-61); Alkaline Phosphatase 156 U/L (45-117); Anion Gap 6 (5-15); Calcium,Total 8.7 mg/dL (8.5-10.1); Chloride 102 mmol/L (98-107); EST Glomerular Filtration Rate 13 mL/min (>60); Est Glom Filt Rate - Afr Amer 16 mL/min (>60); Estimated Creatinine Clearance 10.81 ml/min; Globulin 3.6 g/dL (2.2-4.2); Potassium 3.9 mmol/L (3.5-5.1); Protein, Total 5.6 g/dL (6.4-8.2); Sodium Level 139 mmol/L (136-145)
[2022-04-27 07:02] LABS: International Normalized Ratio 1.2; Prothrombin Time (Protime)PT. 14.8 SECONDS (11.7-14.9)
[2022-04-27 07:15] LABS: Partial Thromboplast Time 33.6 Seconds (24.1-36.2)
--- NOTE | 2022-04-27 08:26 | NURSING ---
call placed to PCP, informed pt see mercury cracking tester Dr. Segura at [facility] and last seen in March. called Dr. Segura's office at [facility], informed they are out of the [place] office advised to send for to [place] office. faxed to [phone] requesting urgent response. phone number to office [phone]
[2022-04-27] MEDS: Folic Acid/Vitamin B Comp W-C 1 Capsule 1 CAP PO (08:31)
[2022-04-27] MEDS: Midodrine HCl 5 MG Tablet 10 MG PO (08:31)
[2022-04-27] MEDS: Tamsulosin HCl 0.4 MG Capsule PO (08:32)
[2022-04-27] MEDS: Sertraline 50 MG Tablet 25 MG PO (08:32)
[2022-04-27] MEDS: Pantoprazole Sodium 40 MG Tablet PO (08:33)
--- NOTE | 2022-04-27 09:28 | CASEMGMT ---
Social Work E-mail received from patient daughter, Natasha. Natasha inquired as to which facilities that are in-network with patient insurance can facilitate transportation for dialysis. This social services assistant contacting facilities that are in-network with patient insurance and local to patient geographical region. Below facilities would be able to accommodate dialysis. [facility] This social services assistant returned e-mail to Natasha communicating above facilities. Natasha to get back to this social services assistant on preference of facility. PLAN: shelter facility. Will continue to follow. Katherine CREWS, JOSELINES
--- NOTE | 2022-04-27 11:34 | PN.RENAL_ITS ---
Subjective Subjective Resting quietly in bed, no overnight events. No complaints. Objective Data Objective Data Vital Signs: Vital Signs Temp Pulse Resp BP Pulse Ox 98.1 F 62 16 104/54 L 99 04/27/22 08:22 04/27/22 08:22 04/27/22 08:22 04/27/22 08:22 04/27/22 08:22 Oxygen Flow Rate (L/min) 2 Oxygen Delivery Method Room Air Weight: 68.5 kg Body Mass Index (BMI) 23.2 Intake & Output: Intake and Output for Last 24 Hours 04/25/22 04/26/22 04/27/22 23:59 23:59 23:59 Intake Total 630.25 / 630.25 2340 / 2340 250 / 250 Output Total 0 / 0 Balance 630.25 / 630.25 2340 / 2340 250 / 250 Lab / Micro Data Result Diagrams: 04/27/22 06:03 04/27/22 06:03 Labs: Laboratory Results - last 24 hr 04/25/22 11:40: Diff Path Review Reviewed 04/27/22 06:03: WBC 7.8, RBC 3.32 L, Hgb 10.9 L, Hct 32.0 L, MCV 96.4 H, MCH 32.8 H, MCHC 34.1, RDW Std Deviation 58.4 H, RDW Coeff of Omer 16.7 H, Plt Count 107 L, MPV 11.0, Immature Gran % (Auto) 0.500, Neut % (Auto) 69.8, Lymph % (Auto) 12.4 L, [place] % (Auto) 14.3 H, Eos % (Auto) 2.7, Baso % (Auto) 0.3, Absolute Neuts (auto) 5.4, Absolute Lymphs (auto) 0.96, Nucleated RBC % 0 04/27/22 06:03: Sodium 139, Potassium 3.9, Chloride 102, Carbon Dioxide 31.0, Anion Gap 6, BUN 36 H, Creatinine 4.50 H, Estim Creat Clear Calc 10.81, Est GFR (MDRD) Af Amer 16 L, Est GFR (MDRD) Non-Af 13 L, BUN/Creatinine Ratio 8.0 L, Glucose 101, Calcium 8.7, Total Bilirubin 1.40 H, AST 54 H, ALT 37, Alkaline Phosphatase 156 H, Total Protein 5.6 L, Albumin 2.0 L, Globulin 3.6, Albumin/Globulin Ratio 0.6 L 04/27/22 06:45: APTT 33.6 04/27/22 06:45: PT 14.8, INR 1.2 Micro: Microbiology 04/25/22 16:37 Wound - Leg, Right Gram Stain - Final 04/25/22 16:37 Wound - Leg, Right Wound Culture - Preliminary GNR lactose senior major gifts officer GNR Poss Pseudomonas sp Radiography Diagnostic Testing: Radiology Impression Extremity Arterial Study 04/26/22 12:18 Interpretation Summary Triphasic Doppler waveforms are noted at ankle level on the right. Triphasic and biphasic Doppler waveforms are noted at ankle level on the left. Pulse-volume recordings appear diminished at digital level bilaterally. The resting right ankle-brachial index is mildly diminished. The resting left ankle-brachial index is low-normal. Digital-brachial indices are moderately di minished bilaterally. There is evidence of mild arterial occlusive disease at ankle level on the right. Arterial flow appears relatively normal at ankle level on the left. There is evidence of angiosomal/regional arterial occlusive disease bilaterally. There is evidence of moderate arterial occlusive disease at digital level bilaterally. Ordering Physician: Ramón Fishman Referring Physician: Michael Brooks M.D. Performed By: Linda Tran RVT Venous Doppler Study 04/26/22 12:18 Interpretation Summary Deep veins of the lower extremities are bilaterally patent and compressible segmentally. There is no evidence of deep vein thrombosis on either side. Valvular competence appears intact within the proximal deep venous systems bilaterally. The great saphenous veins appear bilaterally patent and compressible segmentally. Pulsatile flow is noted in the deep venous system bilaterally, which may be indicative of elevated central venous pressure (i.e. congestive heart failure, pulmonary hypertension, etc.). Clinical correlation is advised. Ordering Physician: Ramón Fishman Referring Physician: Michael Brooks M.D. Performed By: Linda Tran RVT Rhythm Strip Rhythm Strip: A-fib Rate: 84 Physical Exam Narrative Const: Alert and oriented x3 Respiratory: Lungs clear anteriorly. No wheezes rhonchi rales noted Cardio: S1-S2, RRR GI: Abdomen soft, nontender, positive bowel sounds x4 quadrants Extremities: No pitting edema. Dressing intact to right lower leg AV fistula right upper arm positive thrill and bruit noted Assessment & Plan Assessment/Plan (1) History of end stage renal disease: (2) Leukocytosis: (3) Adult failure to thrive: (4) Anemia in chronic kidney disease: PLAN: Plan - ESRD: HD Tuesday at [facility] followed by Dr. Carranza. Tolerated HD 04/26 with 2L UF. No acute indication for [employer] today, will plan for dialysis tomorrow over 3.5 hours with UF as pt/bp tolerates. Apparently patient has been losing weight, last known dry weight was 72 kg. Patient dialyzed on Tuesday, April 23 and post HD weight 69.2 kg. Patient will have a new lowered dry weight by time of discharge. - history of intradialytic hypotension and receives midodrine. BPs have been low. Will start midodrine 5mg tid and hold for SBP >130. Will order midodrine 10mg to be given pre-HD tomorrow. - anemia of chronic disease, currently hemoglobin is acceptable at 10.9 - right lower leg wound: Xray of right lower leg, no acute abnormality scott ntified. Wound cultures pending. Blood cultures are pending. Patient is on IV antibiotics, Zosyn and vanco. Podiatry following. work up in progress. 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 evidence of arterial occlusive disease bilaterally. No DVT - PT/OT and wound care ordered
--- NOTE | 2022-04-27 12:20 | PN.HOSP_ITS ---
Documented by User: RICKEY Bower 04/27/22 12:57 Subjective Subjective Patient seen and examined. Patient lying in bed no distress noted eating breakfast. Patient denies pain at this time. Objective Data Objective Data Vital Signs: Vital Signs Temp Pulse Resp BP Pulse Ox 98.1 F 62 16 104/54 L 99 04/27/22 08:22 04/27/22 08:22 04/27/22 08:22 04/27/22 08:22 04/27/22 08:22 Oxygen Flow Rate (L/min) 2 Oxygen Delivery Method Room Air Weight: 151 lb 0.266 oz Body Mass Index (BMI) 23.2 Intake & Output: Intake and Output for Last 24 Hours 04/25/22 04/26/22 04/27/22 23:59 23:59 23:59 Intake Total 630.25 / 630.25 2340 / 2340 250 / 250 Output Total 0 / 0 Balance 630.25 / 630.25 2340 / 2340 250 / 250 Lab / Micro Data Result Diagrams: 04/27/22 06:03 04/27/22 06:03 Labs: Laboratory Results - last 24 hr 04/25/22 11:40: Diff Path Review Reviewed 04/27/22 06:03: WBC 7.8, RBC 3.32 L, Hgb 10.9 L, Hct 32.0 L, MCV 96.4 H, MCH 32.8 H, MCHC 34.1, RDW Std Deviation 58.4 H, RDW Coeff of Omer 16.7 H, Plt Count 107 L, MPV 11.0, Immature Gran % (Auto) 0.500, Neut % (Auto) 69.8, Lymph % (Auto) 12.4 L, [place] % (Auto) 14.3 H, Eos % (Auto) 2.7, Baso % (Auto) 0.3, Absolute Neuts (auto) 5.4, Absolute Lymphs (auto) 0.96, Nucleated RBC % 0 04/27/22 06:03: Sodium 139, Potassium 3.9, Chloride 102, Carbon Dioxide 31.0, Anion Gap 6, BUN 36 H, Creatinine 4.50 H, Estim Creat Clear Calc 10.81, Est GFR (MDRD) Af Amer 16 L, Est GFR (MDRD) Non-Af 13 L, BUN/Creatinine Ratio 8.0 L, Glucose 101, Calcium 8.7, Total Bilirubin 1.40 H, AST 54 H, ALT 37, Alkaline Phosphatase 156 H, Total Protein 5.6 L, Albumin 2.0 L, Globulin 3.6, Albumin/Globulin Ratio 0.6 L 04/27/22 06:45: APTT 33.6 04/27/22 06:45: PT 14.8, INR 1.2 Micro: Microbiology 04/25/22 16:37 Wound - Leg, Right Gram Stain - Final 04/25/22 16:37 Wound - Leg, Right Wound Culture - Preliminary GNR lactose dye line operator GNR Poss Pseudomonas sp Radiography Diagnostic Testing: Radiology Impression Extremity Arterial Study 04/26/22 12:18 Interpretation Summary Triphasic Doppler waveforms are noted at ankle level on the right. Triphasic and biphasic Doppler waveforms are noted at ankle level on the left. Pulse-volume recordings appear diminished at digital level bilaterally. The resting right ankle-brachial index is mildly diminished. The resting left ankle-brachial index is low-normal. Digital-brachial indices are moderately diminished bilaterally. There is evidence of mild arterial occlusive disease at ankle level on the right. Arterial flow appears relatively normal at ankle level on the left. There is evidence of angiosomal/regional arterial occlusive disease bilaterally. There is evidence of moderate arterial occlusive disease at digital level bilaterally. Ordering Physician: Ramón Fishman Referring Physician: Michael Brooks M.D. Performed By: Linda Tran RVT Venous Doppler Study 04/26/22 12:18 Interpretation Summary Deep veins of the lower extremities are bilaterally patent and compressible segmentally. There is no evidence of deep vein thrombosis on either side. Valvular competence appears intact within the proximal deep venous systems bilaterally. The great saphenous veins appear bilaterally patent and compressible segmentally. Pulsatile flow is noted in the deep venous system bilaterally, which may be indicative of elevated central venous pressure (i.e. congestive heart failure, pulmonary hypertension, etc.). Clinical correlation is advised. Ordering Physician: Ramón Fishman Referring Physician: Michael Brooks M.D. Performed By: Linda Tran RVT Rhythm Strip Rhythm Strip: A-fib Rate: 84 Physical Exam Const oriented x3 General Appearance: cooperative and lethargic HEENT normocephalic and head/scalp atraumatic Eyes conjunctivae normal and no scleral icterus Neck supple General: trachea midline Lymph Lymphatic: no lymphadenopathy noted Resp normal respiratory effort Resp Narrative: coarse breath sounds bilateral Effort and Inspection: able to speak in complete sentences and symmetric chest movement Cardio regular rate, regular rhythm, S1 normal heart sound, S2 normal heart sound and peripheral pulses 2+ throughout GI normal to inspection, nondistended, normoactive bowel sounds, soft to palpation and non-tender Extremity no clubbing, cyanosis or edema Skin Wound Narrative: Patient has a chronic open wound to the right lateral calf. Neuro no focal motor deficits and no sensory deficits noted Speech: speech normal Motor Exam: general weakness Psych thought process normal and cooperative Assessment & Plan Assessment/Plan (1) Leg wound, right: (2) Adult failure to thrive: PLAN: Plan 1. Pneumonia -Blood and urine cultures pending -Patient initiated on vancomycin and Zosyn -Oxygen therapy per protocol, currently on room air patient has not been hypoxic during admission -Patient has been noted to be choking on food multiple times through admission, ST consulted 2. Right pleural effusion secondary to right lung nodule -Discussed finding with patient and family who will discuss how aggressive they want to investigate nodule 3. Failure to thrive -PT and OT following -CBC and BMP daily -Vital signs per protocol 4. Chronic right leg wound -Wound culture and blood cultures pending -Wound nurse following -Patient going for I&D later today with Dr. Fishman 5. End-stage renal disease with dialysis -Tuesday dialysis, patient sees Naz Enriquez NP following -Dialysis will be continued on patient's schedule -Daily weights -Renal diet -Continue midodrine 6. Hyperlipidemia -Continue atorvastatin DVT prophylaxis-subcu heparin This patient was seen by Bonnie Castro NP-C under the supervision of Dr. Campbell. 13 minutes spent in clinical coordination of patient's plan of care. Documented by User: Dr. Topher Campbell MD 04/27/22 13:19 Objective Data Lab / Micro Data Result Diagrams: 04/27/22 06:03 04/27/22 06:03 Assessment & Plan Assessment/Plan (1) Leg wound, right: (2) Adult failure to thrive: Charges/Coding Addendum Addendum: Dr. Campbell I personally examined the patient and reviewed the chart. I agree with the above.? 87-year-old male presents to the hospital with fatigue, shortness of breath, and worsening leg wound.? He was in the hospital 14 April and at the time was only really complaining of leg wound.? He was sent home at that time but presents again because of worsening shortness of breath needing 2 L of oxygen currently when he does not wear any at home as well as fatigue and his right leg wound is now draining.? In the ER he was found to have a right pleural effusion that was read as possible loculation as well as a mass.? The patient and his son were unaware that he ever had a mass, repeat decubitus film was obtained which demonstrated that the effusion was layering so he was admitted with IV antibiotics.? We will obtain a sputum culture as well as a wound culture and a blood culture.? Also consult wound care for assistance.? Would also recommend that once his acute issues are resolved to have him follow-up for repeat imaging and/or evaluation by his PCP for diagnostic studies on this lung mass.? We will consult nephrology for dialysis but in the meantime we will give him a small 500 cc bolus secondary to the dehydration.? He did have about 1.9 L removed on Tuesday.? Clinical time spent in all aspects of patient care: 45 minutes 04/26/2022:?Feels much better today with the antibiotic treatment.? Also last night drainage from his leg increasing he had significant purulence.? Podiatry was consulted recommending an MRI continued IV antibiotics as well as probable operative debridement with wound VAC.? We will also obtain arterial studies, cultures are demonstrating gram-negative rods possible Pseudomonas.? Blood culture and sputum is also pending.? Clinical time spent in all aspects of patient care: 20 minutes 04/27/2022: Doing better today plan is for operative debridement of his right lower extremity wound. He had his ABIs today and his right DERIK is 0.65 at the foot and 0.85 with the posterior tibial artery, the right digital brachial index is 0.43 consistent with arterial disease. MRI was canceled because of this pacemaker. We will see what operative debridement shows and whether or not there is any clinical signs of osteomyelitis. He will likely need SNF placement on discharge so we have consulted case management and social work for assistance there. Clinical time spent in all aspects of patient care: 18 minutes Visit Charges Inpatient E&M: 36089 Subs Hosp L2
--- NOTE | 2022-04-27 12:26 | NURSING ---
call received from [employer] regarding pacer check. states appears patient has been having episodes of nonsustained v tach, last occurring April 10, also appears to be in perminent afib. stated faxed report to PCU. This nurse called PCU and requested fax to be sent to this unit.
--- NOTE | 2022-04-27 12:42 | NURSING ---
Talked with Bianca from Dr. Segura's office in [place] after receiving as response regarding the CIED form which read Dr. Segura is not an transitional kindergarten teacher and does not follow this patient In talking with Bianca she states patient does follow with Dr. Segura at the [facility] office as general cardiology but Dr. Segura is on vacation, they are [facility] and will not address this form. Talked with Elmira [facility] AC surveying crew rodman, informed her of cied form response, also informed of information verbalized by pacer rep and hospitalist was informed of pacer rep. conversation.
--- NOTE | 2022-04-27 12:56 | NURSING ---
Attempted to contact Aaron, patient's son regarding OR time, but no answer.
[2022-04-27] MEDS: Midodrine HCl 5 MG Tablet PO ×2 (13:28→18:33)
--- NOTE | 2022-04-27 13:59 | CASEMGMT ---
Addendum entered by Patti Marie 04/27/22 14:06: Natasha also communicating to this socially responsible investment adviser that patient has been done with all this. Natasha plans to come and talking with patient tomorrow about what his wishes are. Active support and listening provided. LIAM Dougherty Original Note: Social Work Telephone call from patient daughter, Natasha. Natasha reports to have reviewed the list of shelter facilities and choices are as follows 1. [place] 2. [facility] and 3. [facility]. Natasha aware that patient is not medically cleared. Discharge district administrative assistant, Capri notified of above information and will begin referral process to SNF. PLAN: SNF, pending acceptance. Katherine CREWS, JACK-S
--- NOTE | 2022-04-27 14:07 | NURSING ---
Patient off unit to AC at this time.
--- NOTE | 2022-04-27 14:36 | CASEMGMT ---
Discharge Manufacturing Plant Controller Called Amie at [facility]. Faxed over referral. Patient will need Dialysis MWF with [facility] and facility to transport. . Will follow up. Capri Ferreira Discharge Manufacturing Plant Controller
--- NOTE | 2022-04-27 14:38 | CHAPLAIN ---
Type of Pastoral Visit _x__ Initial Visit ___ Follow-up Visit ___ On-call Visit ___ General Patient Visit ___ Spiritual Assessment ___ Family Conference ___ Bereavement ___ Rapid Response ___ Code Blue ___ Other (describe below) Pastoral Care Referral From _x__ Patient ___ Family ___ Nurse ___ Physician ___ Gray Tender ___ Merchandise Presentation Associate ___ Other (describe below) Sacrament/Intervention _x__ Active listening ___ Anointing ___ Anabaptist ___ Bereavement ___ Communion ___ Sita exploration ___ ___ Life review _x__ Prayer ___ Reconciliation ___ Sacrament of Sick ___ Supportive presence ___ Wedding ___ Other (describe below) Pastoral Comments patient states that he is not so good and describes need and going to surgery today; pt offered presence and support; pt states I'm not restorationism but you can say a prayer if you want;
[2022-04-27] MEDS: Bupivacaine Mpf 0.5% 30 ML VIAL (16:40)
--- NOTE | 2022-04-27 16:48 | PCM.OPRPT ---
Problems Associated Problem List Diagnoses (1) Abscess of leg without foot, right: (2) Non-pressure chronic ulcer of right calf with fat layer exposed: (3) Hematoma of right lower leg: Report of Operation Date of Procedure: 04/27/22 Pre-Operative Diagnosis: Infected hematoma/abscess right lower extremity/abscess right lower extremity Post-Operative Diagnosis: Same Surgery/Procedure Performed:: Incision drainage abscess down to muscle right lower extremity Description of Surgical Findings:: Patient was seen bedside which time he had developed an ulceration to his right lower extremity after bumping his leg on his truck. Patient takes clopidogrel. Patient noted chronic swelling pain redness to the area that worsened over time. This started 2 weeks ago. Upon examination he had a focal ulceration to the lateral right leg with purulent drainage. MRI was attempted but due to pacemaker maker was canceled. Decision was made to drain the abscess surgically and flush it. Patient was brought back to the operating placed comfortably in supine position on the operating room table. Patient induced under MAC anesthesia. Local anesthesia block was performed to the right lower extremity ulceration using 10 cc half percent Marcaine plain using local infiltration technique. Right lower extremity scrubbed prepped draped using typical aseptic manner. Once cleared by anesthesia at the proximal aspect of the lateral leg wound was incised to the level of epidermis dermis into subcutaneous tissue. A 5 cc purulent hematoma was drained from the site. There is noted to be resolution of edema erythema to the skin upon clearance of this hematoma. This was noted to be down to the level of muscle as the peroneus longus muscle belly was exposed. Once this was cleared it was swabbed cultured. The right lower extremity was then flushed with copious amounts normal sterile saline using low-pressure pulse lavage. Right lower extremity was cleansed and dressed with iodoform quarter-inch packing 4 x 4's ABD pads dry sterile dressing and a single layer Leggett compression dressing. Patient is transferred to PACU vital signs stable vascular status intact for further monitoring prior to transfer back to the floor. We will continue you to monitor the patient and his response to antibiotics. Patient will likely require wound care upon outpatient setting he can follow-up with me in the wound care center on Tuesday of next week. In the meantime if he is transferred home he will require home health care dressing changes consisting of iodoform packing 3-3 times a week along with dry sterile dressing and application of a compressive dressing. Will continue to follow the patient closely. Surgeon: Ramón Fishman casting machine service operator: None Type of Anesthesia: Local MAC Special Medications: 10cc 0.5% marcaine plain Specimen's removed: swab cultures for micro Drains: none Estimated Blood Loss (mL): 10cc Description of Procedure: detailed above Complications figueroa Admit VTE Documentation VTE Present on Admission: Yes VTE Mechan Device Prophylaxis: SCD's VTE Pharm Prophylaxis ordered?: Yes
[2022-04-27] MEDS: 0.9% Saline Lock 10 ML Syringe IV (21:44)
[2022-04-27] MEDS: Atorvastatin Calcium 40 MG Tablet PO (21:47)
[2022-04-27] MEDS: Heparin Injection (Vial) 5,000 UNIT/ML VIAL 5000 UNIT SC (21:59)
[2022-04-28] VITALS (7 sets, daily range): BP systolic 94–120; BP diastolic 41–62; PULSE 60–83; RESP 14–16; TEMP 36.4–36.7; O2SAT 93–100
[2022-04-28 05:17] LABS: Absolute Lymphocyte Count 0.96 X10^3/uL (0.83-4.51); Absolute Neutrophil Count 4.9 X10^3/uL (2.0-7.7); Basophil# 0.03 X10^3/uL; Basophil% 0.4 % (0-1); Eosinophil# 0.14 X10^3/uL; Hematocrit 33.9 % (40-54); Hemoglobin 11.3 g/dL (13.0-16.5); Lymphocyte # 0.96 X10^3/ul (0.83-4.51); Lymphocyte % 13.4 % (19-41); Mean Corp Hgb Conc 33.3 g/dL (32-36); Mean Corpuscular Hgb 32.5 pg (27.0-32.0); Mean Corpuscular Volume 97.4 fL (80-94); Mean Platelet Vol. 12.3 fl (6.2-12.0); Monocyte# 1.12 X10^3/uL; Monocyte% 15.6 % (0-10); NRBC Flagged by Analyzer 0 % (0-5); Neutrophil # 4.86 X10^3/uL (2.7-7.7); Neutrophil % 67.9 % (47-70); Platelet Count 128 K/mm3 (150-450); RBC Distribution Width CV 16.7 % (11.6-14.6); Red Blood Count 3.48 M/mm3 (4.6-6.2); White Blood Count 7.2 K/mm3 (4.4-11.0)
[2022-04-28 05:45] LABS: ALB/GLOB Ratio 0.6 RATIO (0.9-2.4); AST(SGOT) 56 U/L (15-37); Alanine Aminotransfer ALT/SGPT 41 U/L (16-61); Albumin, Serum 2.1 g/dL (3.2-5.0); Alkaline Phosphatase 166 U/L (45-117); Anion Gap 12 (5-15); BUN 42 mg/dL (7-18); BUN/Creat Ratio 7.9 RATIO (10-20); Calcium,Total 8.9 mg/dL (8.5-10.1); Chloride 100 mmol/L (98-107); Creatinine, Serum 5.29 mg/dL (0.70-1.30); EST Glomerular Filtration Rate 11 mL/min (>60); Est Glom Filt Rate - Afr Amer 13 mL/min (>60); Globulin 3.8 g/dL (2.2-4.2); Glucose 87 mg/dL (74-106); Protein, Total 5.9 g/dL (6.4-8.2); Sodium Level 139 mmol/L (136-145)
[2022-04-28] MEDS: Heparin Injection (Vial) 5,000 UNIT/ML VIAL 5000 UNIT SC ×3 (06:18→20:52)
[2022-04-28 06:52] LABS: Vancomycin, Random Level 11.1 ug/mL (0.0-15.0)
[2022-04-28] MEDS: Midodrine HCl 5 MG Tablet PO ×3 (08:09→17:37)
[2022-04-28] MEDS: Pantoprazole Sodium 40 MG Tablet PO (08:10)
[2022-04-28] MEDS: Midodrine HCl 5 MG Tablet 10 MG PO (08:10)
[2022-04-28] MEDS: Sertraline 50 MG Tablet 25 MG PO (08:10)
[2022-04-28] MEDS: Folic Acid/Vitamin B Comp W-C 1 Capsule 1 CAP PO (08:10)
[2022-04-28] MEDS: Tamsulosin HCl 0.4 MG Capsule PO (08:10)
[2022-04-28] MEDS: Clopidogrel Bisulfate 75 MG Tablet PO (08:13)
--- NOTE | 2022-04-28 08:35 | PCM.PN.REN ---
Subjective Subjective Awake, resting quietly. Denies any complaints Objective Data Objective Data Vital Signs: Vital Signs Temp Pulse Resp BP Pulse Ox 97.8 F 81 16 99/61 93 04/28/22 08:04 04/28/22 08:04 04/28/22 08:04 04/28/22 08:04 04/28/22 08:04 Oxygen Flow Rate (L/min) 2 Oxygen Delivery Method Room Air Weight: 67.6 kg Body Mass Index (BMI) 23.6 Intake & Output: Intake and Output for Last 24 Hours 04/26/22 04/27/22 04/28/22 23:59 23:59 23:59 Intake Total 2340 / 2340 820 / 820 150 / 150 Output Total 0 / 0 0 / 0 Balance 2340 / 2340 820 / 820 150 / 150 Lab / Micro Data Result Diagrams: 04/28/22 05:09 04/28/22 05:09 Labs: Laboratory Results - last 24 hr 04/28/22 05:09: Random Vancomycin 11.1 04/28/22 05:09: WBC 7.2, RBC 3.48 L, Hgb 11.3 L, Hct 33.9 L, MCV 97.4 H, MCH 32.5 H, MCHC 33.3, RDW Std Deviation 59.0 H, RDW Coeff of Omer 16.7 H, Plt Count 128 L, MPV 12.3 H, Immature Gran % (Auto) 0.700, Neut % (Auto) 67.9, Lymph % (Auto) 13.4 L, [place] % (Auto) 15.6 H, Eos % (Auto) 2.0, Baso % (Auto) 0.4, Absolute Neuts (auto) 4.9, Absolute Lymphs (auto) 0.96, Nucleated RBC % 0 04/28/22 05:09: Sodium 139, Potassium 4.0, Chloride 100, Carbon Dioxide 27.0, Anion Gap 12, BUN 42 H, Creatinine 5.29 H, Estim Creat Clear Calc 9.20, Est GFR (MDRD) Af Amer 13 L, Est GFR (MDRD) Non-Af 11 L, BUN/Creatinine Ratio 7.9 L, Glucose 87, Calcium 8.9, Total Bilirubin 1.30 H, AST 56 H, ALT 41, Alkaline Phosphatase 166 H, Total Protein 5.9 L, Albumin 2.1 L, Globulin 3.8, Albumin/Globulin Ratio 0.6 L Micro: Microbiology 04/25/22 16:37 Wound - Leg, Right Gram Stain - Final 04/25/22 16:37 Wound - Leg, Right Wound Culture - Final Escherichia coli Pseudomonas aeroginosa 04/25/22 16:37 Wound - Leg, Right Anaerobic Culture - Preliminary Checking for anaerobes, further studies to follow. Rhythm Strip Rhythm Strip: A-fib Rate: 84 Physical Exam Narrative Const: Alert and oriented x3 Respiratory: Lungs clear anteriorly. No wheezes rhonchi rales noted Cardio: S1-S2, RRR GI: Abdomen soft, nontender, positive bowel sounds x4 quadrants Extremities: No pitting edema to bilateral legs. Dressing/JOHN wrap intact to right lower leg AV fistula right upper arm positive thrill and bruit noted. Edema noted to bilateral arms Assessment & Plan Assessment/Plan (1) History of end stage renal disease: (2) Leukocytosis: (3) Adult failure to thrive: (4) Anemia in chronic kidney disease: PLAN: Plan - ESRD: HD Tuesday at [facility] followed by Dr. Carranza. Tolerated HD 04/26 with 2L UF. For dialysis today over 3.5 hours/3kbath with UF ~2L as pt/bp tolerates. Apparently patient has been losing weight, last known dry weight was 72 kg. Patient dialyzed on Tuesday, April 23 and post HD weight 69.2 kg. Patient will have a new lowered dry weight by time of discharge. - history of intradialytic hypotension and receives midodrine. BPs have been low but improved. Continue midodrine 5mg tid and hold for SBP >130. Will also give midodrine 10mg pre-HD today. - anemia of chronic disease, currently hemoglobin is acceptable at 11.3, no need for RONNIE at this time. - right lower leg wound: S/p I&D. Xray of right lower leg, no acute abnormality identified. Wound cultures ecoli and pseudomonas aeroginosa. Blood cultures are pending. Patient is on IV antibiotics, Zosyn and vanco. Podiatry following. work up in progress. 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 evidence of arterial occlusive disease bilaterally. No DVT - PT/OT and wound care ordered - discharge planning in progress. If patient goes to ecf he will need transportation to/from dialysis
--- NOTE | 2022-04-28 08:57 | NURSING ---
pt having dialysis
--- NOTE | 2022-04-28 08:59 | PCM.RX.CS ---
Consult Pharmacy has been consulted to manage selected antiobiotic: Vancomycin Type of Consult: Follow-up Suspected Infection: Skin/Soft tissue, Pneumonia Prior Doses of Antibiotics Received/Current Regimen: the patient received 500mg x1 after HD on 04/26/22 at 18:07 Labs: Sodium 139 mmol/L (136-145) 04/28/22 05:09 Potassium 4.0 mmol/L (3.5-5.1) 04/28/22 05:09 Chloride 100 mmol/L (98-107) 04/28/22 05:09 Carbon Dioxide 27.0 mmol/L (21.0-32.0) 04/28/22 05:09 Anion Gap 12 (5-15) 04/28/22 05:09 BUN 42 mg/dL (7-18) H 04/28/22 05:09 Creatinine 5.29 mg/dL (0.70-1.30) H 04/28/22 05:09 Est GFR (MDRD) Af Amer 13 mL/min (>60) L 04/28/22 05:09 Est GFR (MDRD) Non-Af 11 mL/min (>60) L 04/28/22 05:09 BUN/Creatinine Ratio 7.9 RATIO (10-20) L 04/28/22 05:09 Glucose 87 mg/dL (74-106) 04/28/22 05:09 Random Vancomycin 11.1 ug/mL (0.0-15.0) 04/28/22 05:09 Microbiology: Microbiology 04/25/22 16:37 Wound - Leg, Right Gram Stain - Final 04/25/22 16:37 Wound - Leg, Right Wound Culture - Final Escherichia coli Pseudomonas aeroginosa 04/25/22 16:37 Wound - Leg, Right Anaerobic Culture - Preliminary Checking for anaerobes, further studies to follow. Weight used for dosin.6 kg Goal Trough: 15-20 mcg/mL Pharmacy Plan for Drug Dosing: The vanc random level drawn at 05:09 today (approx 35 hours after the last vanc dose) was 11.1. Per our [facility] dosing protocol for patient's on hemodialysis, will give a dose of 750mg today x1 after HD is completed. Will repeat a random level with AM labs on 04/30/22 before HD since the patient gets HD Mon/Wed/Fri. Further dosing will be determined from there. Pharmacy Service will continue to monitor and adjust dosing as required. Follow-Up Labs: Trough Vancomycin - random Labs to be done on [date and time ordered]: 04/30/22 0600 with AM labs
--- NOTE | 2022-04-28 09:12 | CASEMGMT ---
Discharge Epic Beacon Analyst Called Amie at [facility] and left a vm regarding referral. Will follow up. Capri Ferreira Discharge Epic Beacon Analyst
--- NOTE | 2022-04-28 09:31 | WOUNDNOTE ---
wound photo: right lateral lower leg
[2022-04-28] MEDS: 0.9% Saline Lock 10 ML Syringe IV (09:49)
--- NOTE | 2022-04-28 10:13 | PCM.PROGNOTE ---
Subjective Subjective Patient seen bedside 1 day post op. Denies pain or constitutionals. Patient ESRD. Passing gas. Objective Data Objective Data neurovascular status unchanges Skin incision/full thickness wound to lateral right leg demonstrates resolved purulence/edema/erythema. Some moderate sanguinous drainage. No residual fluctuance/crepitus. Vital Signs: Vital Signs Temp Pulse Resp BP Pulse Ox 97.8 F 81 16 99/61 93 04/28/22 08:04 04/28/22 08:04 04/28/22 08:04 04/28/22 08:04 04/28/22 08:04 Oxygen Flow Rate (L/min) 2 Oxygen Delivery Method Room Air Weight: 67.6 kg Body Mass Index (BMI) 23.6 Intake & Output: Intake and Output for Last 24 Hours 04/26/22 04/27/22 04/28/22 23:59 23:59 23:59 Intake Total 2340 / 2340 820 / 820 150 / 150 Output Total 0 / 0 0 / 0 Balance 2340 / 2340 820 / 820 150 / 150 Lab / Micro Data Result Diagrams: 04/28/22 05:09 04/28/22 05:09 Labs: Laboratory Results - last 24 hr 04/28/22 05:09: Random Vancomycin 11.1 04/28/22 05:09: WBC 7.2, RBC 3.48 L, Hgb 11.3 L, Hct 33.9 L, MCV 97.4 H, MCH 32.5 H, MCHC 33.3, RDW Std Deviation 59.0 H, RDW Coeff of Omer 16.7 H, Plt Count 128 L, MPV 12.3 H, Immature Gran % (Auto) 0.700, Neut % (Auto) 67.9, Lymph % (Auto) 13.4 L, [place] % (Auto) 15.6 H, Eos % (Auto) 2.0, Baso % (Auto) 0.4, Absolute Neuts (auto) 4.9, Absolute Lymphs (auto) 0.96, Nucleated RBC % 0 04/28/22 05:09: Sodium 139, Potassium 4.0, Chloride 100, Carbon Dioxide 27.0, Anion Gap 12, BUN 42 H, Creatinine 5.29 H, Estim Creat Clear Calc 9.20, Est GFR (MDRD) Af Amer 13 L, Est GFR (MDRD) Non-Af 11 L, BUN/Creatinine Ratio 7.9 L, Glucose 87, Calcium 8.9, Total Bilirubin 1.30 H, AST 56 H, ALT 41, Alkaline Phosphatase 166 H, Total Protein 5.9 L, Albumin 2.1 L, Globulin 3.8, Albumin/Globulin Ratio 0.6 L Micro: Microbiology 04/27/22 Unknown Wound - Leg Wound Culture - Preliminary GNR lactose first aid officer 04/25/22 16:20 Blood Culture (Wb) - Left Wrist Blood Culture - Preliminary No growth in 48 hours. 04/25/22 16:15 Blood Culture (Wb) - Anticubital Left Blood Culture - Preliminary No growth in 48 hours. 04/25/22 16:37 Wound - Leg, Right Gram Stain - Final 04/25/22 16:37 Wound - Leg, Right Wound Culture - Final Escherichia coli Pseudomonas aeroginosa 04/25/22 16:37 Wound - Leg, Right Anaerobic Culture - Preliminary Checking for anaerobes, further studies to follow. Rhythm Strip Rhythm Strip: A-fib Rate: 84 Assessment & Plan Assessment/Plan (1) Hematoma of right lower leg: (2) Abscess of leg without foot, right: (3) Non-pressure chronic ulcer of right calf with fat layer exposed: PLAN: Plan Patient examined/evaluated. Site improved today. Dressing changed, re-packed w/ iodoform, dressed w/ DSD and JOHN. Recommend SNF or [facility] with 3 times a week dressing changes. Initital cultures show E-coli/Pseudomonas Aeruginosa. Operative Cultures showing GNR initially. Zosyn covering this. Will continue to follow closely. Patient can ambulate as tolerated with PT.
--- NOTE | 2022-04-28 11:58 | PN.HOSP_ITS ---
Documented by User: RICKEY Bower 04/28/22 12:02 Subjective Subjective Patient seen and examined. Patient lying in bed eating breakfast no distress noted. Patient patient set up for dialysis Objective Data Objective Data Vital Signs: Vital Signs Temp Pulse Resp BP Pulse Ox 97.6 F L 76 16 111/44 L 96 04/28/22 11:42 04/28/22 11:42 04/28/22 11:42 04/28/22 11:42 04/28/22 11:42 Oxygen Flow Rate (L/min) 2 Oxygen Delivery Method Room Air Weight: 149 lb 0.52 oz Body Mass Index (BMI) 23.6 Intake & Output: Intake and Output for Last 24 Hours 04/26/22 04/27/22 04/28/22 23:59 23:59 23:59 Intake Total 2340 / 2340 820 / 820 300 / 300 Output Total 0 / 0 0 / 0 Balance 2340 / 2340 820 / 820 300 / 300 Lab / Micro Data Result Diagrams: 04/28/22 05:09 04/28/22 05:09 Labs: Laboratory Results - last 24 hr 04/28/22 05:09: Random Vancomycin 11.1 04/28/22 05:09: WBC 7.2, RBC 3.48 L, Hgb 11.3 L, Hct 33.9 L, MCV 97.4 H, MCH 32.5 H, MCHC 33.3, RDW Std Deviation 59.0 H, RDW Coeff of Omer 16.7 H, Plt Count 128 L, MPV 12.3 H, Immature Gran % (Auto) 0.700, Neut % (Auto) 67.9, Lymph % (Auto) 13.4 L, [place] % (Auto) 15.6 H, Eos % (Auto) 2.0, Baso % (Auto) 0.4, Absolute Neuts (auto) 4.9, Absolute Lymphs (auto) 0.96, Nucleated RBC % 0 04/28/22 05:09: Sodium 139, Potassium 4.0, Chloride 100, Carbon Dioxide 27.0, Anion Gap 12, BUN 42 H, Creatinine 5.29 H, Estim Creat Clear Calc 9.20, Est GFR (MDRD) Af Amer 13 L, Est GFR (MDRD) Non-Af 11 L, BUN/Creatinine Ratio 7.9 L, Glucose 87, Calcium 8.9, Total Bilirubin 1.30 H, AST 56 H, ALT 41, Alkaline Phosphatase 166 H, Total Protein 5.9 L, Albumin 2.1 L, Globulin 3.8, Albumin/Globulin Ratio 0.6 L Micro: Microbiology 04/27/22 Unknown Wound - Leg Gram Stain - Final 04/27/22 Unknown Wound - Leg Wound Culture - Preliminary GNR 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 04/25/22 16:15 Blood Culture (Wb) - Anticubital Left Blood Culture - Preliminary No growth in 48 hours. 04/25/22 16:37 Wound - Leg, Right Gram Stain - Final 04/25/22 16:37 Wound - Leg, Right Wound Culture - Final Escherichia coli Pseudomonas aeroginosa 04/25/22 16:37 Wound - Leg, Right Anaerobic Culture - Preliminary Checking for anaerobes, further studies to follow. Rhythm Strip Rhythm Strip: A-fib Rate: 84 Physical Exam Const oriented x3 General Appearance: cooperative and lethargic HEENT normocephalic and head/scalp atraumatic Eyes conjunctivae normal and no scleral icterus Neck supple General: trachea midline Lymph Lymphatic: no lymphadenopathy noted Resp normal respiratory effort Resp Narrative: coarse breath sounds bilateral Effort and Inspection: able to speak in complete sentences and symmetric chest movement Cardio regular rate, regular rhythm, S1 normal heart sound, S2 normal heart sound and peripheral pulses 2+ throughout GI normal to inspection, nondistended, normoactive bowel sounds, soft to palpation and non-tender Extremity no clubbing, cyanosis or edema Skin Wound Narrative: Patient has a chronic open wound to the right lateral calf. Neuro no focal motor deficits and no sensory deficits noted Speech: speech normal Motor Exam: general weakness Psych thought process normal and cooperative Assessment & Plan Assessment/Plan (1) Leg wound, right: (2) Adult failure to thrive: PLAN: Plan 1. Pneumonia -Blood cultures negative -Continue vancomycin and Zosyn -Oxygen therapy per protocol, currently on room air patient has not been hypoxic during admission -Patient has been noted to be choking on food multiple times through admission, ST following 2. Right pleural effusion secondary to right lung nodule -Discussed finding with patient and family who will discuss how aggressive they want to investigate nodule 3. Failure to thrive -PT and OT following -CBC and BMP daily -Vital signs per protocol 4. Chronic right leg wound -Wound culture from 04/25/2022 demonstrates Pseudomonas and E. coli both emmanuel ceptible to Zosyn -Wound nurse following -I&D completed 04/27/2022, wound cultures from surgical procedure pending 5. End-stage renal disease with dialysis -Tuesday dialysis, patient sees Naz Enriquez SUPERVISOR INSPECTION ROOM following -Dialysis will be continued on patient's schedule -Daily weights -Renal diet -Continue midodrine 6. Hyperlipidemia -Continue atorvastatin DVT prophylaxis-subcu heparin This patient was seen by Bonnie Castro NP-C under the supervision of Dr. Campbell. 13 minutes spent in clinical coordination of patient's plan of care. Documented by User: Dr. Topher Campbell MD 04/28/22 12:54 Objective Data Lab / Micro Data Result Diagrams: 04/28/22 05:09 04/28/22 05:09 Assessment & Plan Assessment/Plan (1) Leg wound, right: (2) Adult failure to thrive: Charges/Coding Addendum Addendum: Dr. Campbell I personally examined the patient and reviewed the chart. I agree with the above .? 87-year-old male presents to the hospital with fatigue, shortness of breath, and worsening leg wound.? He was in the hospital 14 April and at the time was only really complaining of leg wound.? He was sent home at that time but presents again because of worsening shortness of breath needing 2 L of oxygen currently when he does not wear any at home as well as fatigue and his right leg wound is now draining.? In the ER he was found to have a right pleural effusion that was read as possible loculation as well as a mass.? The patient and his son were unaware that he ever had a mass, repeat decubitus film was obtained which demonstrated that the effusion was layering so he was admitted with IV a ntibiotics.? We will obtain a sputum culture as well as a wound culture and a blood culture.? Also consult wound care for assistance.? Would also recommend that once his acute issues are resolved to have him follow-up for repeat imaging and/or evaluation by his PCP for diagnostic studies on this lung mass.? We will consult nephrology for dialysis but in the meantime we will give him a small 500 cc bolus secondary to the dehydration.? He did have about 1.9 L removed on Tuesday.? Clinical time spent in all aspects of patient care: 45 minutes 04/26/2022:?Feels much better today with the antibiotic treatment.? Also last night drainage from his leg increasing he had significant purulence.? Podiatry was consulted recommending an MRI continued IV antibiotics as well as probable operative debridement with wound VAC.? We will also obtain arterial studies, cultures are demonstrating gram-negative rods possible Pseudomonas.? Blood culture and sputum is also pending.? Clinical time spent in all aspects of patient care: 20 minutes 04/27/2022:?Doing better today plan is for operative debridement of his right lower extremity wound.? He had his ABIs today and his right DERIK is 0.65 at the foot and 0.85 with the posterior tibial artery, the right digital brachial index is 0.43 consistent with arterial disease.? MRI was canceled because of this pacemaker.? We will see what operative debridement shows and whether or not there is any clinical signs of osteomyelitis.? He will likely need SNF placement on discharge so we have consulted case management and social work for assistance there.? Clinical time spent in all aspects of patient care: 18 minutes 04/28/2022: Doing well, feels much better today. Preliminary cultures d emonstrate a pansensitive E. coli and a Pseudomonas sensitive to Cipro, deeper cultures are pending, however they do show a gram-negative mimi. Currently on Zosyn and if these cultures continue, can likely transition to p.o. Cipro. Continue with dialysis and he is willing to go to SNF. Clinical time spent in all aspects of patient care: 15 minutes Visit Charges Inpatient E&M: 85711 Subs Hosp L2
--- NOTE | 2022-04-28 12:42 | CASEMGMT ---
Discharge Breading Machine Tender Called Amie at [facility]. Left a VM to call me back to follow up on referral. Will follow up. Capri Ferreira Discharge Breading Machine Tender
--- NOTE | 2022-04-28 13:33 | CASEMGMT ---
Pt screened with [facility] Palliative Care Screening Tool, pt met criteria. No order received at this time.
--- NOTE | 2022-04-28 14:07 | CASEMGMT ---
Discharge Rn Pediatric Icu Called [facility]. Amie is off today. Talked with Niya at [facility]. Niya is going to call Amie to get the status of the patient. Will continue to follow up. Capri Ferreira Discharge Rn Pediatric Icu
--- NOTE | 2022-04-28 14:26 | CASEMGMT ---
Discharge Cissp Niya reached out from [facility]. Patient can be accepted. SAHARA Cole notified. Niya will start Pre-cert. Capri Ferreira Discharge Cissp
--- NOTE | 2022-04-28 16:48 | CASEMGMT ---
Social Work [place] [facility] is able to accept pt and precert is to be started. Pt dgt updated. Plan: [place] [facility] [employer], pending precert [place] Brennan
[2022-04-28] MEDS: Atorvastatin Calcium 40 MG Tablet PO (20:52)
[2022-04-29] VITALS (7 sets, daily range): BP systolic 92–126; BP diastolic 43–58; PULSE 60–79; RESP 12–18; TEMP 36.4–37.2; O2SAT 94–98
[2022-04-29] MEDS: Heparin Injection (Vial) 5,000 UNIT/ML VIAL 5000 UNIT SC ×3 (05:54→21:20)
[2022-04-29 06:24] LABS: Absolute Lymphocyte Count 0.99 X10^3/uL (0.83-4.51); Absolute Neutrophil Count 3.7 X10^3/uL (2.0-7.7); Basophil# 0.06 X10^3/uL; Eosinophil# 0.24 X10^3/uL; Hematocrit 31.2 % (40-54); Hemoglobin 10.6 g/dL (13.0-16.5); Lymphocyte # 0.99 X10^3/ul (0.83-4.51); Lymphocyte % 16.6 % (19-41); Mean Corpuscular Hgb 33.1 pg (27.0-32.0); Mean Corpuscular Volume 97.5 fL (80-94); Mean Platelet Vol. 11.8 fl (6.2-12.0); Monocyte# 0.93 X10^3/uL; Monocyte% 15.6 % (0-10); NRBC Flagged by Analyzer 0 % (0-5); Platelet Count 121 K/mm3 (150-450); RBC Distribution Width CV 16.3 % (11.6-14.6); RBC Distribution Width SD 57.7 fl (35.1-43.9)
[2022-04-29 06:53] LABS: ALB/GLOB Ratio 0.5 RATIO (0.9-2.4); AST(SGOT) 40 U/L (15-37); Alanine Aminotransfer ALT/SGPT 38 U/L (16-61); Alkaline Phosphatase 150 U/L (45-117); Anion Gap 6 (5-15); BUN 23 mg/dL (7-18); BUN/Creat Ratio 6.3 RATIO (10-20); Calcium,Total 8.5 mg/dL (8.5-10.1); Chloride 101 mmol/L (98-107); Creatinine, Serum 3.63 mg/dL (0.70-1.30); EST Glomerular Filtration Rate 17 mL/min (>60); Est Glom Filt Rate - Afr Amer 21 mL/min (>60); Globulin 3.7 g/dL (2.2-4.2); Glucose 87 mg/dL (74-106); Potassium 3.9 mmol/L (3.5-5.1); Protein, Total 5.7 g/dL (6.4-8.2); Sodium Level 138 mmol/L (136-145)
[2022-04-29] MEDS: Tamsulosin HCl 0.4 MG Capsule PO (08:44)
[2022-04-29] MEDS: Pantoprazole Sodium 40 MG Tablet PO (08:44)
[2022-04-29] MEDS: Midodrine HCl 5 MG Tablet PO ×3 (08:44→16:47)
[2022-04-29] MEDS: Sertraline 50 MG Tablet 25 MG PO (08:45)
[2022-04-29] MEDS: Folic Acid/Vitamin B Comp W-C 1 Capsule 1 CAP PO (08:45)
[2022-04-29] MEDS: Clopidogrel Bisulfate 75 MG Tablet PO (08:47)
[2022-04-29] MEDS: 0.9% Saline Lock 10 ML Syringe IV ×2 (09:26→21:21)
--- NOTE | 2022-04-29 09:36 | PN.HOSP_ITS ---
Subjective Subjective Doing well, no issues overnight. Feels much better today. Objective Data Objective Data Vital Signs: Vital Signs Temp Pulse Resp BP Pulse Ox 98.1 F 79 16 109/45 L 94 04/29/22 08:08 04/29/22 08:08 04/29/22 08:08 04/29/22 08:08 04/29/22 08:08 Oxygen Flow Rate (L/min) 2.5 Oxygen Delivery Method Room Air Weight: 147 lb 4.301 oz Body Mass Index (BMI) 23.6 Intake & Output: Intake and Output for Last 24 Hours 04/28/22 04/29/22 04/30/22 03:59 03:59 03:59 Intake Total 620 / 620 765 / 765 0 / 0 Output Total 0 / 0 0 / 0 0 / 0 Balance 620 / 620 765 / 765 0 / 0 Lab / Micro Data Result Diagrams: 04/29/22 06:14 04/29/22 06:14 Labs: Laboratory Results - last 24 hr 04/29/22 06:14: WBC 6.0, RBC 3.20 L, Hgb 10.6 L, Hct 31.2 L, MCV 97.5 H, MCH 33.1 H, MCHC 34.0, RDW Std Deviation 57.7 H, RDW Coeff of Omer 16.3 H, Plt Count 121 L, MPV 11.8, Immature Gran % (Auto) 0.800, Neut % (Auto) 62.0, Lymph % (Auto) 16.6 L, [place] % (Auto) 15.6 H, Eos % (Auto) 4.0, Baso % (Auto) 1.0, Absolute Neuts (auto) 3.7, Absolute Lymphs (auto) 0.99, Nucleated RBC % 0 04/29/22 06:14: Sodium 138, Potassium 3.9, Chloride 101, Carbon Dioxide 31.0, Anion Gap 6, BUN 23 H, Creatinine 3.63 H, Estim Creat Clear Calc 13.40, Est GFR (MDRD) Af Amer 21 L, Est GFR (MDRD) Non-Af 17 L, BUN/Creatinine Ratio 6.3 L, Glucose 87, Calcium 8.5, Total Bilirubin 1.20 H, AST 40 H, ALT 38, Alkaline Phosphatase 150 H, Total Protein 5.7 L, Albumin 2.0 L, Globulin 3.7, Albumin/Globulin Ratio 0.5 L Micro: Microbiology 04/27/22 Unknown Wound - Leg Gram Stain - Final 04/27/22 Unknown Wound - Leg Wound Culture - Final Escherichia coli 04/25/22 16:20 Blood Culture (Wb) - Left Wrist Blood Culture - Preliminary No growth in 48 hours. 04/25/22 16:15 Blood Culture (Wb) - Anticubital Left Blood Culture - Preliminary No growth in 48 hours. 04/25/22 16:37 Wound - Leg, Right Gram Stain - Final 04/25/22 16:37 Wound - Leg, Right Wound Culture - Final Escherichia coli Pseudomonas aeroginosa 04/25/22 16:37 Wound - Leg, Right Anaerobic Culture - Preliminary Checking for anaerobes, further studies to follow. Rhythm Strip Rhythm Strip: A-fib Rate: 84 Physical Exam Const alert, oriented x3 and no apparent distress General Appearance: cooperative HEENT normocephalic and moist oral mucous membranes Eyes PERRL, EOMs intact bilaterally and conjunctivae normal Neck supple and no JVD Resp normal respiratory effort, no retractions and no use of accessory muscles Auscultation: diminished lung sounds; Negative for crackles, rales, rhonchi or wheezes Cardio regular rate, regular rhythm, S1 normal heart sound, S2 normal heart sound and no murmurs GI soft to palpation, non-tender and non-distended; Negative for hepatosplenomegaly Extremity no clubbing, cyanosis or edema Skin Skin Narrative: 4 cm right anterior mehta ulceration status postdebridement currently wrapped Neuro no focal motor deficits and no sensory deficits noted Psych affect normal Appearance: appropriate Assessment & Plan Assessment/Plan (1) Leg wound, right: (2) Adult failure to thrive: PLAN: Plan 1. Right lower lobe pneumonia with minor pleural effusion/right lower extremity leg wound E. coli and Pseudomonas status postdebridement 04/27/2022/failure to thrive ? So far blood cultures are negative, deeper wound cultures are pending but those are also showing gram-negative rods ? Can discontinue the vancomycin and continue with Zosyn ? Based on culture sensitivities [facility] go [facility] [place] [facility] p.o. Cipro ?Given duration of antibiotics he is already been treated for community-acquired pneumonia ? PT/OT, plan for SNF discharge 2. ESRD with dialysis Tuesday, Tuesday, Tuesday ? Appreciate nephrology's assistance ? Will need dialysis at SNF ? Started on midodrine, will stop Flomax as this can lower blood pressures 3. HLD/history of previous DE ? Continue with his Lipitor and his Plavix 4. GERD ? Stable ? Continue with PPI 5. Anxiety/depression ? Stable ? Continue with Zoloft DVT: Heparin Charges/Coding Visit Charges Inpatient E&M: 67389 Subs Hosp L2
--- NOTE | 2022-04-29 10:03 | PCM.PN.REN ---
Subjective Subjective Resting in bed, denies any complaints. Speech therapy at bedside. Patient states he tolerated HD well yesterday with no cramping; tolerated 3L fluid removal. Objective Data Objective Data Vital Signs: Vital Signs Temp Pulse Resp BP Pulse Ox 98.1 F 79 16 109/45 L 94 04/29/22 08:08 04/29/22 08:08 04/29/22 08:08 04/29/22 08:08 04/29/22 08:08 Oxygen Flow Rate (L/min) 2.5 Oxygen Delivery Method Room Air Weight: 66.8 kg Body Mass Index (BMI) 23.6 Intake & Output: Intake and Output for Last 24 Hours 04/27/22 04/28/22 04/29/22 23:59 23:59 23:59 Intake Total 820 / 820 665 / 665 150 / 150 Output Total 0 / 0 0 / 0 Balance 820 / 820 665 / 665 150 / 150 Lab / Micro Data Result Diagrams: 04/29/22 06:14 04/29/22 06:14 Labs: Laboratory Results - last 24 hr 04/29/22 06:14: WBC 6.0, RBC 3.20 L, Hgb 10.6 L, Hct 31.2 L, MCV 97.5 H, MCH 33.1 H, MCHC 34.0, RDW Std Deviation 57.7 H, RDW Coeff of Omer 16.3 H, Plt Count 121 L, MPV 11.8, Immature Gran % (Auto) 0.800, Neut % (Auto) 62.0, Lymph % (Auto) 16.6 L, [place] % (Auto) 15.6 H, Eos % (Auto) 4.0, Baso % (Auto) 1.0, Absolute Neuts (auto) 3.7, Absolute Lymphs (auto) 0.99, Nucleated RBC % 0 04/29/22 06:14: Sodium 138, Potassium 3.9, Chloride 101, Carbon Dioxide 31.0, Anion Gap 6, BUN 23 H, Creatinine 3.63 H, Estim Creat Clear Calc 13.40, Est GFR (MDRD) Af Amer 21 L, Est GFR (MDRD) Non-Af 17 L, BUN/Creatinine Ratio 6.3 L, Glucose 87, Calcium 8.5, Total Bilirubin 1.20 H, AST 40 H, ALT 38, Alkaline Phosphatase 150 H, Total Protein 5.7 L, Albumin 2.0 L, Globulin 3.7, Albumin/Globulin Ratio 0.5 L Micro: Microbiology 04/27/22 Unknown Wound - Leg Gram Stain - Final 04/27/22 Unknown Wound - Leg Wound Culture - Final Escherichia coli 04/27/22 Unknown Wound - Leg Anaerobic Culture - Preliminary 04/25/22 16:20 Blood Culture (Wb) - Left Wrist Blood Culture - Preliminary No growth in 48 hours. 04/25/22 16:15 Blood Culture (Wb) - Anticubital Left Blood Culture - Preliminary No growth in 48 hours. 04/25/22 16:37 Wound - Leg, Right Gram Stain - Final 04/25/22 16:37 Wound - Leg, Right Wound Culture - Final Escherichia coli Pseudomonas aeroginosa 04/25/22 16:37 Wound - Leg, Right Anaerobic Culture - Preliminary Checking for anaerobes, further studies to follow. Rhythm Strip Rhythm Strip: A-fib Rate: 84 Physical Exam Narrative Const: Alert and oriented x3 Respiratory: Lungs clear anteriorly. No wheezes rhonchi rales noted Cardio: S1-S2, RRR GI: Abdomen soft, nontender, positive bowel sounds x4 quadrants Extremities: No pitting edema to bilateral legs. Dressing/JOHN wrap intact to right lower leg AV fistula right upper arm positive thrill and bruit noted. Edema noted to bilateral arms but improved. Assessment & Plan Assessment/Plan (1) History of end stage renal disease: (2) Leukocytosis: (3) Adult failure to thrive: (4) Anemia in chronic kidney disease: PLAN: Plan - ESRD: HD Tuesday at [facility] followed by Dr. Carranza. Tolerated HD 04/26 with 2L UF, tolerated 3L UF with HD 04/28. No acute indication for ADMINISTRATIVE SERVICES ASSISTANT today, next HD tomorrow. Apparently patient has been losing weight, last known dry weight was 72 kg. Patient dialyzed on Tuesday, April 23 and post HD weight 69.2 kg. Patient will have a new lowered dry weight by time of discharge. - history of intradialytic hypotension and receives midodrine. BPs have been low but improved. Continue midodrine 5mg tid and hold for SBP >130. Will also give midodrine 10mg pre-HD. - anemia of chronic disease, currently hemoglobin is acceptable at 10.6, no need for RONNIE at this time. - right lower leg wound: S/p I&D. Xray of right lower leg, no acute abnormality identified. Wound cultures ecoli and pseudomonas aeroginosa. Blood cultures NGTD. Patient is on IV antibiotics, Zosyn. Podiatry following. 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 evidence of arterial occlusive disease bilaterally. No DVT - PT/OT and wound care ordered - discharge planning in progress. If patient goes to ecf he will need transportation to/from dialysis. Discussed with discharge planning team.
--- NOTE | 2022-04-29 10:44 | CASEMGMT ---
Discharge Senior Interior Designer Reached out to Amie at [facility] to confirm that they can transfer patient to Dialysis MWF at [facility] with a chair time at 7:30am. [facility] can transport. Capri Ferreira Discharge Senior Interior Designer
--- NOTE | 2022-04-29 11:46 | CASEMGMT ---
Social Work SW updated pt and left VM with dgt Natasha that [facility] can accept, precert is pending and [facility] can transport to Dialysis. Plan: [facility], pending precMONTANA Reveles
[2022-04-29] MEDS: Atorvastatin Calcium 40 MG Tablet PO (21:20)
[2022-04-30 03:08] VITALS: BP 109/43; PULSE 74; RESP 14; TEMP 36.7; O2SAT 98
[2022-04-30] MEDS: Heparin Injection (Vial) 5,000 UNIT/ML VIAL 5000 UNIT SC ×2 (06:15→13:30)
[2022-04-30 06:18] LABS: Anion Gap 9 (5-15); BUN 35 mg/dL (7-18); BUN/Creat Ratio 7.2 RATIO (10-20); Calcium,Total 9.1 mg/dL (8.5-10.1); Chloride 100 mmol/L (98-107); Creatinine, Serum 4.85 mg/dL (0.70-1.30); EST Glomerular Filtration Rate 12 mL/min (>60); Est Glom Filt Rate - Afr Amer 15 mL/min (>60); Estimated Creatinine Clearance 10.03 ml/min; Glucose 109 mg/dL (74-106); Potassium 3.9 mmol/L (3.5-5.1); Sodium Level 137 mmol/L (136-145)
[2022-04-30] MEDS: Midodrine HCl 5 MG Tablet 10 MG PO (07:58)
[2022-04-30 08:00] VITALS: BP 136/53; PULSE 87; RESP 18; TEMP 36.7
--- NOTE | 2022-04-30 10:33 | CASEMGMT ---
Discharge Glazing Superintendent Called Amie at [facility]. Left a VM regarding pre-cert. Will follow up. Capri Ferreira Discharge Glazing Superintendent
--- NOTE | 2022-04-30 11:44 | PCM.TXEXTCAR ---
Diet Diet Order/Speech Therapy: 04/27/22 18:26 Diet: Renal - General Food consistency:: Regular Liquid Consistency:: Regular/Thin Dietary Modifications:: Sodium Restricted Type of Dietary Supplement:: Ensure Enlive Is pt able to select menu?: Yes Diet Comments: MEATS CHOPPED, Distant Sup., 8oz KYLEE Ensure Enlive w/ B & D Routine Orders/Code Status Routine Lab Work: CBC and BMP Wound(s) RT HECTOR: Wound Type: open wound (pt states had large hematoma) Dressing Change: Packed with NuGauze RIGHT LOWER LEG: Wound Type: Open Surgical Wound Dressing Change: Packed with NuGauze Therapies Physical Therapy: Eval and Treat Occupational Therapy: Eval and Treat Problem/Diagnosis (1) History of end stage renal disease: Status: Acute Code(s): Z87.448 - Personal history of other diseases of urinary system (2) Leukocytosis: Status: Acute Code(s): D72.829 - Elevated white blood cell count, unspecified (3) Adult failure to thrive: Status: Acute Code(s): R62.7 - Adult failure to thrive (4) Anemia in chronic kidney disease: Status: Chronic Code(s): N18.9 - Chronic kidney disease, unspecified; D63.1 - Anemia in chronic kidney disease Plan 1. Right lower lobe pneumonia with minor pleural effusion/right lower extremity leg wound E. coli and Pseudomonas status postdebridement 04/27/2022/failure to thrive ? So far blood cultures are negative, deeper wound cultures are pending but those are also showing gram-negative rods ? Can discontinue the vancomycin and continue with Zosyn ? Based on culture sensitivities can go home to the senior care on p.o. Cipro ?Given duration of antibiotics he is already been treated for community-acquired pneumonia ? PT/OT, plan for SNF discharge 2. ESRD with dialysis Tuesday, Tuesday, Tuesday ? Appreciate nephrology's assistance ? Will need dialysis at SNF ? Started on midodrine, will stop Flomax as this can lower blood pressures 3. HLD/history of previous UT ? Continue with his Lipitor and his Plavix 4. GERD ? Stable ? Continue with PPI 5. Anxiety/depression ? Stable ? Continue with Zoloft DVT: Heparin Allergies/Procedures Done in Hospital Allergies No Known Allergies Allergy (Verified 04/14/22 09:48) Procedures: - (Debridement of his right lower extremity abscess) Type of Care/Length of Stay Estimated LOS: Convalescent Care Less Than 30 days Type of Care Needed: LTAC Rehab Potential: Good Prognosis: Good Additional Orders/Day of Discharge Day of Discharge: 04/30/22 Dietary and Speech Recommendations Dietitian Recommendations/Changes: Continue Renal - General diet Will provide 8 oz chocolate ensure enlive at breakfast and lunch per pt request (vs at [facility]). Discharge Plan Admission Admit Date/Time: 04/25/22 15:21 Attending Provider: Topher Campbell Primary Care Provider: Michael Brooks Consulting Providers: Diego Carlton ; Ramón Fishman Discharge Orders/Prescriptions Prescriptions: New ciprofloxacin HCl [Cipro] 500 mg tablet 500 mg PO DAILY Qty: 1 0RF Continued clopidogrel 75 mg Tablet 75 mg PO DAILY tamsulosin 0.4 mg Capsule 0.4 mg PO DAILY pantoprazole 40 mg Tablet,Delayed Release (Dr/Ec) 40 mg PO DAILY sertraline 25 mg Tablet 25 mg PO DAILY midodrine 10 mg Tablet 10 mg PO DAILY Trelegy Ellipta 100-62.5-25 mcg Blister With Device INHALATION Jenifer-Venessa 0.8 mg PO/SL DAILY atorvastatin 40 mg tablet 40 tab PO DAILY Referrals / Follow Up: Ramón Fishman DPM [STAFF PHYSICIAN] - (Wound care center follow up with Dr. Fishman ) Michael Brooks MD [Primary Care Provider] - Disposition Disposition (needs filled in before D/C Order can be placed): Nursing Home Facility
--- NOTE | 2022-04-30 11:45 | CASEMGMT ---
Discharge Boilers And Pressure Vessels Inspector Amie from [facility] called. Pre-cert has been obtained. SAHARA Cole has been notified. Capri Ferreira Discharge Boilers And Pressure Vessels Inspector
--- NOTE | 2022-04-30 12:01 | PCM.DC.SUM ---
Providers Date of Admission: 04/25/22 Primary Care Physician: Dr. Michael Brooks MD Consultations 04/25/22 16:33 Consult: Nephrology Routine Consulting Provider: Diego Carlton Reason for Consult: Dialysis EMERGENT Consult: No Notified: Yes Date Notified: 04/25/22 Time Notified: 15:47 Method of Notification: Answering Service Consult: Onc/Wound/neon pumper Routine Comment: Reason for Consult:: RLE wound 04/26/22 08:38 Consult: Podiatry Routine Consulting Provider: Ramón Fishman Reason for Consult: infected leg EMERGENT Consult: No Notified: Yes Date Notified: 04/26/22 Time Notified: 08:39 Method of Notification: Answering Service Reason For Visit: PNEUMONIA WITH HYPOXIA Diagnosis Discharge Diagnosis (1) History of end stage renal disease: Status: Acute Code(s): Z87.448 - Personal history of other diseases of urinary system (2) Leukocytosis: Status: Acute Code(s): D72.829 - Elevated white blood cell count, unspecified (3) Adult failure to thrive: Status: Acute Code(s): R62.7 - Adult failure to thrive (4) Anemia in chronic kidney disease: Status: Chronic Code(s): N18.9 - Chronic kidney disease, unspecified; D63.1 - Anemia in chronic kidney disease Plan 1. Right lower lobe pneumonia with minor pleural effusion/right lower extremity leg wound E. coli and Pseudomonas status postdebridement 04/27/2022/failure to thrive ? So far blood cultures are negative, deeper wound cultures are pending but those are also showing gram-negative rods ? Can discontinue the vancomycin and continue with Zosyn ? Based on culture sensitivities can go home to the [facility] on p.o. Cipro ?Given duration of antibiotics he is already been treated for community-acquired pneumonia ? PT/OT, plan for SNF discharge 2. ESRD with dialysis Tuesday, Tuesday, Tuesday ? Appreciate nephrology's assistance ? Will need dialysis at SNF ? Started on midodrine, will stop Flomax as this can lower blood pressures 3. HLD/history of previous OR ? Continue with his Lipitor and his Plavix 4. GERD ? Stable ? Continue with PPI 5. Anxiety/depression ? Stable ? Continue with Zoloft DVT: Heparin Medications at Discharge Home Medications Jenifer-Venessa 0.8 mg PO/SL DAILY kidneys 12/26/21 clopidogrel 75 mg tablet 75 mg PO DAILY blood 12/26/21 fluticasone fur. 100 mcg-umeclid 62.5 mcg-vilant 25 mcg inhalat.powder (Trelegy Ellipta) inhalation inhaler 12/26/21 pantoprazole 40 mg tablet,delayed release 40 mg PO DAILY acid 12/26/21 sertraline 25 mg tablet 25 mg PO DAILY mood 12/26/21 tamsulosin 0.4 mg capsule 0.4 mg PO DAILY prostate 12/26/21 atorvastatin 40 mg tablet 40 tab PO DAILY cholesterol 04/25/22 ciprofloxacin HCl 500 mg tablet (Cipro) 500 mg PO DAILY #1 TAB 04/30/22 midodrine 5 mg tablet 5 mg PO TIDCM #0 tabs 04/30/22 Hospital Course Operations None Procedures - (Wound debridement) Summary of Care Provided Minutes Spent on Discharge: 40 Hospital Course: Per HPI:PADMINI MARSH, is a 87 M who presents with decreased appetite and increased weakness which has been getting worse over the past couple of weeks.? Patient also reports that he has had some shortness of breath.? Patient has end-stage renal disease and gets dialysis Tuesday and underwent a full run Tuesday.? Patient also has a history of COPD, hyperlipidemia, BPH, atrial fibrillation and a right leg chronic wound. Hospital course: 1.? Right lower lobe pneumonia with minor pleural effusion/right lower extremity leg wound E. coli and Pseudomonas status postdebridement 04/27/2022/failure to thrive ? So far blood cultures are negative, deeper wound cultures with the same E. coli as the previous cultures ? Continue with Cipro daily at 500 mg for another 10 days, he should receive the ciprofloxacin after dialysis on dialysis days ?Given duration of antibiotics he is already been treated for community-acquired pneumonia ? I discussed with him the plan for discharge today he expressed understanding of the risk benefits of going to SNF and would like to go today. All of his home medications were continued where appropriate. His midodrine was changed to 3 times daily dosing 2.? ESRD with dialysis Tuesday, Tuesday, Tuesday ? Appreciate nephrology's assistance ? Will need dialysis at SNF ? Started on midodrine 3 times daily 3.? HLD/history of previous OR ? Continue with his Lipitor and his Plavix 4.? GERD ? Stable ? Continue with PPI 5.? Anxiety/depression ? Stable ? Continue with Zoloft Physical Exam Narrative Const alert, oriented x3 and no apparent distress General Appearance: cooperative HEENT normocephalic and moist oral mucous membranes Eyes PERRL, EOMs intact bilaterally and conjunctivae normal Neck supple and no JVD Resp normal respiratory effort, no retractions and no use of accessory muscles Auscultation: diminished lung sounds; Negative for crackles, rales, rhonchi or wheezes Cardio regular rate, regular rhythm, S1 normal heart sound, S2 normal heart sound and no murmurs GI soft to palpation, non-tender and non-distended; Negative for hepatosplenomegaly Extremity no clubbing, cyanosis or edema Skin Skin Narrative: 4 cm right anterior mehta ulceration status postdebridement currently wrapped Neuro no focal motor deficits and no sensory deficits noted Psych affect normal Appearance: appropriate Weight / BMI Weight Weight: 149 lb 7.574 oz Body Mass Index (BMI) 23.6 ABG / Lab / Microbiology Data Result Diagrams: 04/29/22 06:14 04/30/22 05:35 Laboratory: Laboratory Results - last 24 hr 04/30/22 05:35: Sodium 137, Potassium 3.9, Chloride 100, Carbon Dioxide 28.0, Anion Gap 9, BUN 35 H, Creatinine 4.85 H, Estim Creat Clear Calc 10.03, Est GFR (MDRD) Af Amer 15 L, Est GFR (MDRD) Non-Af 12 L, BUN/Creatinine Ratio 7.2 L, Glucose 109 H, Calcium 9.1 Microbiology: Microbiology 04/25/22 16:37 Wound - Leg, Right Gram Stain - Final 04/25/22 16:37 Wound - Leg, Right Wound Culture - Final Escherichia coli Pseudomonas aeroginosa 04/25/22 16:37 Wound - Leg, Right Anaerobic Culture - Preliminary Checking for anaerobes, further studies to follow. 04/27/22 Unknown Wound - Leg Gram Stain - Final 04/27/22 Unknown Wound - Leg Wound Culture - Final Escherichia coli 04/27/22 Unknown Wound - Leg Anaerobic Culture - Preliminary 04/25/22 16:20 Blood Culture (Wb) - Left Wrist Blood Culture - Preliminary No growth in 48 hours. 04/25/22 16:15 Blood Culture (Wb) - Anticubital Left Blood Culture - Preliminary No growth in 48 hours. Meaningful Use Info Meaningful Use Diagnoses (Choose all that apply): None applicable Discharge Plan Admission Admit Date/Time: 04/25/22 15:21 Attending Provider: Topher Campbell Primary Care Provider: Michael Brooks Consulting Providers: Diego Carlton ; Ramón Fishman Discharge Orders/Prescriptions Prescriptions: New ciprofloxacin HCl [Cipro] 500 mg tablet 500 mg PO DAILY Qty: 1 0RF midodrine 5 mg Tablet 5 mg PO TIDCM Qty: 0 0RF Continued clopidogrel 75 mg Tablet 75 mg PO DAILY tamsulosin 0.4 mg Capsule 0.4 mg PO DAILY pantoprazole 40 mg Tablet,Delayed Release (Dr/Ec) 40 mg PO DAILY sertraline 25 mg Tablet 25 mg PO DAILY Trelegy Ellipta 100-62.5-25 mcg Blister With Device INHALATION Jenifer-Venessa 0.8 mg PO/SL DAILY atorvastatin 40 mg tablet 40 tab PO DAILY Discontinued midodrine 10 mg Tablet 10 mg PO DAILY Referrals / Follow Up: Ramón Fishman DPM [STAFF PHYSICIAN] - (Wound care center follow up with Dr. Fishman ) Michael Brooks MD [Primary Care Provider] - Disposition Disposition (needs filled in before D/C Order can be placed): Residential Facility Charges/Coding Visit Charges Inpatient E&M: 02162 Disch Hosp
[2022-04-30 12:20] VITALS: BP 101/43; PULSE 56; RESP 18; TEMP 36.7
--- NOTE | 2022-04-30 12:21 | DIALYSIS ---
hemodialysis completed x 3.5 hrs. Access via [facility]. Net UF 2500ml. pt merly well. See HD flowsheet on chart.
[2022-04-30] MEDS: Sertraline 50 MG Tablet 25 MG PO (13:29)
[2022-04-30] MEDS: Folic Acid/Vitamin B Comp W-C 1 Capsule 1 CAP PO (13:29)
[2022-04-30] MEDS: Pantoprazole Sodium 40 MG Tablet PO (13:30)
[2022-04-30] MEDS: Clopidogrel Bisulfate 75 MG Tablet PO (13:30)
[2022-04-30] MEDS: 0.9% Saline Lock 10 ML Syringe IV (13:30)
[2022-04-30] MEDS: Tamsulosin HCl 0.4 MG Capsule PO (13:30)
[2022-04-30] MEDS: Midodrine HCl 5 MG Tablet PO (13:30)
--- NOTE | 2022-04-30 14:31 | CASEMGMT ---
Social Work [facility] is able to accept pt and precert has been obtained. Physician updated and pt ready for discharge at this time. 7000 convalescent form completed in [facility] and faxed along with orders to [facility]. [facility] arranged [facility] for 4:00 black pickler via [facility]. Phone call to pt dgt Natasha and notified of discharge and black pickler time. SW also informed Natasha that pt does not qualify for cot and WC van is private pay, she is agreeable to this. Pt notified and agreeable to discharge to [facility]. Bedside nurse and [facility] updated on discharge time. Plan: [facility], Skilled level of care under convalescent stay. MONTANA Brennan
--- NOTE | 2022-04-30 15:10 | NURSING ---
Report called to [facility]. CERAMICS INSTRUCTOR states nurse that will be taking pt is on break, but will call back when available. This RN left phone number for return call. Made aware of transport coming at 4:00pm.
[2022-04-30 15:51] VITALS: BP 104/44; PULSE 58; RESP 18; TEMP 36.6; O2SAT 95
--- NOTE | 2022-04-30 16:00 | NURSING ---
Report called to AG Ulloa at [facility]
--- NOTE | 2022-04-30 16:08 | PCM.PN.REN ---
Subjective Subjective Following for ESRD. The patient was dialyzed today. I supervised the procedure. He denies current chest pain or shortness of breath. Objective Data Objective Data Vital Signs: Vital Signs Temp Pulse Resp BP Pulse Ox 97.9 F 58 L 18 104/44 L 95 04/30/22 15:51 04/30/22 15:51 04/30/22 15:51 04/30/22 15:51 04/30/22 15:51 Oxygen Flow Rate (L/min) 2.5 Oxygen Delivery Method Room Air Weight: 67.8 kg Body Mass Index (BMI) 23.6 Intake & Output: Intake and Output for Last 24 Hours 04/28/22 04/29/22 04/30/22 23:59 23:59 23:59 Intake Total 665 / 665 900 / 1100 450 / 450 Output Total 0 / 0 5000 / 5000 Balance 665 / 665 900 / 1100 -4550 / -4550 Lab / Micro Data Result Diagrams: 04/29/22 06:14 04/30/22 05:35 Labs: Laboratory Results - last 24 hr 04/30/22 05:35: Sodium 137, Potassium 3.9, Chloride 100, Carbon Dioxide 28.0, Anion Gap 9, BUN 35 H, Creatinine 4.85 H, Estim Creat Clear Calc 10.03, Est GFR (MDRD) Af Amer 15 L, Est GFR (MDRD) Non-Af 12 L, BUN/Creatinine Ratio 7.2 L, Glucose 109 H, Calcium 9.1 Micro: Microbiology 04/30/22 12:48 Nasal Secretion SARS-CoV-2 Antigen (Rapid) - Final 04/25/22 16:37 Wound - Leg, Right Gram Stain - Final 04/25/22 16:37 Wound - Leg, Right Wound Culture - Final Escherichia coli Pseudomonas aeroginosa 04/25/22 16:37 Wound - Leg, Right Anaerobic Culture - Preliminary Checking for anaerobes, further studies to follow. 04/27/22 Unknown Wound - Leg Gram Stain - Final 04/27/22 Unknown Wound - Leg Wound Culture - Final Escherichia coli 04/27/22 Unknown Wound - Leg Anaerobic Culture - Preliminary 04/25/22 16:20 Blood Culture (Wb) - Left Wrist Blood Culture - Preliminary No growth in 48 hours. 04/25/22 16:15 Blood Culture (Wb) - Anticubital Left Blood Culture - Preliminary No growth in 48 hours. Rhythm Strip Rhythm Strip: A-fib Rate: 84 Physical Exam Narrative Const: Alert and oriented x3 Respiratory: Lungs clear anteriorly. No wheezes rhonchi rales noted Cardio: S1-S2, RRR, 2/6 systolic murmur GI: Abdomen soft, nontender, positive bowel sounds x4 quadrants Extremities: No pitting edema to bilateral legs. Dressing/JOHN wrap intact to right lower leg AV fistula right upper arm positive thrill and bruit noted. Edema noted to bilateral arms but improved. Assessment & Plan Assessment/Plan (1) History of end stage renal disease: (2) Leukocytosis: (3) Adult failure to thrive: (4) Anemia in chronic kidney disease: PLAN: Plan - ESRD: HD Tuesday at [facility] followed by Dr. Carranza. I supervised the hemodialysis treatment today. The patient tolerated the procedure well. We used F160 dialyzer with blood flow of 400 and dialysis flow 600. We ultrafilter the patient to his usual target weight. -Apparently patient has been losing weight, last known dry weight was 72 kg. Patient will have a new lowered dry weight by time of discharge. - history of intradialytic hypotension and receives midodrine. BPs have been low but improved. Continue midodrine 5mg tid and hold for SBP >130. Will also give midodrine 10mg pre-HD. - anemia of chronic disease, currently hemoglobin is acceptable at 10.6, no need for RONNIE at this time. - right lower leg wound: S/p I&D. Xray of right lower leg, no acute abnormality identified. Wound cultures ecoli and pseudomonas aeroginosa. Blood cultures NGTD. Patient is on IV antibiotics, Zosyn. Podiatry following. 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 evidence of arterial occlusive disease bilaterally. No DVT - PT/OT and wound care ordered - discharge planning in progress. If patient goes to ecf he will need transportation to/from dialysis. Discussed with discharge planning team.
== END 2022-04-30 16:24 | disposition skilled nursing facility (03) | DRG 987 ==
LOC: ED 14:07 → MS3 15:52
PROVIDERS: Anesthesiology; Nurse Practitioner Family; Podiatrist; Admitting Provider Family Medicine; Emergency Provider Emergency Medicine; PCP Internal Medicine; Visit Provider Family Medicine
PROC: 0K9S0ZZ Drainage of Right Lower Leg Muscle, Open Approach (ICD-10-PCS; principal; 2022-04-27 14:50)
DX: J18.9 Pneumonia, unspecified organism (principal); N18.6 End stage renal disease; J44.0 Chronic obstructive pulmonary disease with (acute) lower respiratory infection; L97.212 Non-pressure chronic ulcer of right calf with fat layer exposed; L02.415 Cutaneous abscess of right lower limb; D63.1 Anemia in chronic kidney disease; I50.9 Heart failure, unspecified; I48.91 Unspecified atrial fibrillation; E86.0 Dehydration; Z99.2 Dependence on renal dialysis; F17.210 Nicotine dependence, cigarettes, uncomplicated; E78.5 Hyperlipidemia, unspecified; B96.5 Pseudomonas (aeruginosa) (mallei) (pseudomallei) as the cause of diseases classified elsewhere; K21.9 Gastro-esophageal reflux disease without esophagitis; F41.9 Anxiety disorder, unspecified; B96.20 Unspecified Escherichia coli [E. coli] as the cause of diseases classified elsewhere; I25.2 Old myocardial infarction; N40.0 Benign prostatic hyperplasia without lower urinary tract symptoms; S80.11XA Contusion of right lower leg, initial encounter; R62.7 Adult failure to thrive; Z79.02 Long term (current) use of antithrombotics/antiplatelets; R91.1 Solitary pulmonary nodule; Z95.0 Presence of cardiac pacemaker; F32.A Depression, unspecified; Z79.899 Other long term (current) drug therapy; W20.8XXA Other cause of strike by thrown, projected or falling object, initial encounter; Y93.9 Activity, unspecified; Y99.9 Unspecified external cause status; Y92.9 Unspecified place or not applicable
CPT/HCPCS: 36415; 71045; 71046; 73502; 73590; 80048; 80053; 80202; 85025; 85610; 85730; 87040; 87070; 87075; 87077; 87186; 87205; 87426; 90937; 92610; 93005; 93923; 93970; 97162; 97166; 97530; 97802; 99285; J7030; J7040; J7050; A4216; G0257; J2405

== ENCOUNTER 2022-05-03 08:40 | Emergency (ER) | payer MEDICARE, SELFPAY ==
[2022-05-03 08:43] VITALS: BP 110/52; PULSE 87; RESP 22; TEMP 36.7; O2SAT 99; BMI 23.7
--- NOTE | 2022-05-03 10:06 | EDS_ITS ---
HPI History of Present Illness HPI Narrative: Patient presents with swelling around his AV fistula in his left arm that has been getting worse over the last 3 days. Patient states he has dialysis on Tuesday and Tuesday. Patient states he had dialysis on Tuesday and everything looked okay at that time. Patient states that on Tuesday he noted some swelling around the site. Patient went to dialysis today and was referred to the emergency department because of the swelling around his fistula site. P atient states he was recently on an antibiotic for a right leg wound. Patient states he completed the antibiotic. Patient does not know what the name of the antibiotic was. Patient states that he has developed a rash over the last few days. Patient states the rash is pruritic and generalized. Patient denies any difficulty breathing or difficulty swallowing. Patient denies any known exposures. Chief Complaint: Edema Informant: patient Onset/Context/Timing Onset: Days (3) Context: Gradual Onset Timing: Continuous Location: Left arm and elbow area Worsened by: Nothing Relieved by: Nothing Associated Symptoms Associated Symptoms: Negative for Parasthesia, Weakness or Loss of Funtion [facility] Medical History History of heart attack Hyperlipidemia Kidney failure Pacemaker Home Medications Jenifer-Venessa 0.8 mg PO/SL DAILY kidneys 12/26/21 [History Last Taken 04/24/22 10:00] clopidogrel 75 mg tablet 75 mg PO DAILY blood 12/26/21 [History Last Taken 04/24/22 10:00] fluticasone fur. 100 mcg-umeclid 62.5 mcg-vilant 25 mcg inhalat.powder (Trelegy Ellipta) inhalation inhaler 12/26/21 [History Last Taken 04/24/22 10:00] pantoprazole 40 mg tablet,delayed release 40 mg PO DAILY acid 12/26/21 [History Last Taken 04/24/22 10:00] sertraline 25 mg tablet 25 mg PO DAILY mood 12/26/21 [History Last Taken 04/24/22 10:00] tamsulosin 0.4 mg capsule 0.4 mg PO DAILY prostate 12/26/21 [History Last Taken 04/24/22 10:00] atorvastatin 40 mg tablet 40 tab PO DAILY cholesterol 04/25/22 [History Last Taken 04/24/22 10:00] ciprofloxacin HCl 500 mg tablet (Cipro) 500 mg PO DAILY #1 TAB 04/30/22 [Rx Last Taken Unknown] midodrine 5 mg tablet 5 mg PO TIDCM #0 tabs 04/30/22 [Rx Last Taken Unknown] clindamycin HCl 300 mg capsule (Cleocin HCl) 300 mg PO Q6H #40 CAPSULES 05/03/22 [Rx Last Taken Unknown] Allergy/AdvReac Type Severity Reaction Status Date / Time No Known Allergies Allergy Verified 05/03/22 08:42 Social History household members: none Smoking Status: Current every day smoker tobacco type: cigarettes substance use type: does not use ROS ROS ED Constitutional Constitutional ED: Denies chills or fever(s) Eyes Eyes: Denies blurry vision or change in vision ENT ENT ED: Denies rhinorrhea or sore throat Cardiovascular Cardiovascular: Denies chest pain or palpitations Respiratory/Chest Respiratory/Chest: Denies cough or dyspnea Gastrointestinal Gastrointestinal: Denies nausea or vomiting Genitourinary Genitourinary ED: Denies dysuria or hematuria Musculoskeletal Musculoskeletal: Denies back pain or neck pain Integumentary Reports rash; Denies abscess Neurologic Neurologic: Denies headache(s) or weakness Allergic/Immunologic Allergic/Immunologic ED: Denies mouth swelling or urticaria EXAM Physical Exam Const Vital Signs: 05/03/22 08:43 Temperature 98.1 F Temperature Source Oral Pulse Rate 87 Respiratory Rate 22 H Blood Pressure 110/52 L Blood Pressure Mean 71 Pulse Ox 99 Oxygen Delivery Method Room Air Positive well nourished and well developed General Appearance ED: well developed HEENT Reports moist mucous membranes Neck supple and no JVD Resp normal respiratory effort and clear to auscultation bilaterally Cardio regular rate and regular rhythm GI normal to inspection, nondistended, normoactive bowel sounds and non-tender Palpation: soft Extremity Extremity Narrative: There is some edema and erythema over the medial aspect of the left upper arm. There are no vesicles or pustules. There is no evidence of any abscess formation. There is a palpable thrill noted in the AV fistula. There is full range of motion of the left upper extremity. Sensation was intact to light touch in all digits. Capillary refills less than 2 seconds in all digits. Strength is 5/5 bilaterally in the upper extremities. Neuro oriented x3, CN's II-XII intact bilaterally and no sensory deficits noted Sensorium / Orientation: alert Motor Exam: strength 5/5 throughout Psych mental status grossly normal Skin Skin Narrative: There is a diffuse patchy erythematous macular rash. There are no vesicles or pustules. There are no petechia noted. There is no involvement of the mucous membranes. The rash is consistent with urticaria. MDM MDM MDM Narrative Medical decision making narrative: Review of the chart shows that the patient was recently admitted to the hospital and was on Zosyn while he was in the hospital. Patient was given a prescription for a single dose of Cipro when he was discharged. Because of this, patient was given a dose of clindamycin here. CBC shows a mild anemia with hemoglobin of 12.0 and hematocrit 35.5. Platelets were normal. Comprehensive metabolic profile shows sodium 135, potassium was slightly elevated at 5.3, chloride was 97. BUN was 34 and creatinine was 6.26. These are consistent with prior results. Blood cultures were obtained and are pending. Patient is feeling better on reevaluation. I feel the patient is safe to be discharged and go back to dialysis. Patient will need to have access of his fistula away from the cellulitis. Patient was given a prescription for clindamycin. Patient was instructed to follow-up with his primary care physician in 3 to 5 days. Patient understood and was agreeable with the plan. All questions were answered. Discharge Plan Triage Chief Complaint: Edema ED Provider: Beny Whitfield Dx/Rx/DC Orders Clinical Impression: Cellulitis of arm, left, History of end stage renal disease, Urticaria Instructions: ED Cellulitis, ED Hives (Adult) Prescriptions: New clindamycin HCl [Cleocin HCl] 300 MG capsule 300 mg PO Q6H Qty: 40 0RF No Action clopidogrel 75 mg Tablet 75 mg PO DAILY tamsulosin 0.4 mg Capsule 0.4 mg PO DAILY pantoprazole 40 mg Tablet,Delayed Release (Dr/Ec) 40 mg PO DAILY sertraline 25 mg Tablet 25 mg PO DAILY Trelegy Ellipta 100-62.5-25 mcg Blister With Device INHALATION Jenifer-Venessa 0.8 mg PO/SL DAILY atorvastatin 40 mg tablet 40 tab PO DAILY ciprofloxacin HCl [Cipro] 500 mg tablet 500 mg PO DAILY Qty: 1 0RF midodrine 5 mg Tablet 5 mg PO TIDCM Qty: 0 0RF Primary Care Provider: Michael Brooks Referrals: Michael Boroks MD [Primary Care Provider] - 3-5 Days Disposition Disposition: Home, Self Care
[2022-05-03 10:53] LABS: Absolute Lymphocyte Count 0.57 X10^3/uL (0.83-4.51); Absolute Neutrophil Count 9.3 X10^3/uL (2.0-7.7); Basophil# 0.02 X10^3/uL; Basophil% 0.2 % (0-1); Eosinophil# 0.37 X10^3/uL; Eosinophils% 3.4 % (0-5); Hematocrit 35.5 % (40-54); Lymphocyte # 0.57 X10^3/ul (0.83-4.51); Lymphocyte % 5.2 % (19-41); Mean Corp Hgb Conc 33.8 g/dL (32-36); Mean Corpuscular Hgb 33.1 pg (27.0-32.0); Mean Corpuscular Volume 97.8 fL (80-94); Mean Platelet Vol. 12.1 fl (6.2-12.0); Monocyte# 0.58 X10^3/uL; Monocyte% 5.3 % (0-10); NRBC Flagged by Analyzer 0 % (0-5); Neutrophil # 9.25 X10^3/uL (2.7-7.7); Neutrophil % 85.2 % (47-70); POSITIVE DIFFERENTIAL YES; Platelet Count 179 K/mm3 (150-450); RBC Distribution Width CV 16.6 % (11.6-14.6); RBC Distribution Width SD 57.5 fl (35.1-43.9); Red Blood Count 3.63 M/mm3 (4.6-6.2); White Blood Count 10.9 K/mm3 (4.4-11.0)
[2022-05-03 10:56] LABS: Differential Indicated SCAN CRITERIA MET
[2022-05-03] MEDS: DiphenhydrAMINE 50 MG/ML Syringe 25 MG IV (11:10)
[2022-05-03] MEDS: Clindamycin 600 MG/50 ML BAG 100 MG IV (11:12)
[2022-05-03 11:13] VITALS: BP 113/54; PULSE 77; RESP 18; O2SAT 98
[2022-05-03 11:21] LABS: ALB/GLOB Ratio 0.6 RATIO (0.9-2.4); AST(SGOT) 63 U/L (15-37); Alanine Aminotransfer ALT/SGPT 39 U/L (16-61); Albumin, Serum 2.3 g/dL (3.2-5.0); Alkaline Phosphatase 165 U/L (45-117); Anion Gap 9 (5-15); BUN 34 mg/dL (7-18); BUN/Creat Ratio 5.4 RATIO (10-20); Calcium,Total 9.4 mg/dL (8.5-10.1); Chloride 97 mmol/L (98-107); Creatinine, Serum 6.26 mg/dL (0.70-1.30); EST Glomerular Filtration Rate 9 mL/min (>60); Est Glom Filt Rate - Afr Amer 11 mL/min (>60); Estimated Creatinine Clearance 7.77 ml/min; Glucose 88 mg/dL (74-106); Potassium 5.3 mmol/L (3.5-5.1); Protein, Total 6.3 g/dL (6.4-8.2); Sodium Level 135 mmol/L (136-145)
--- NOTE | 2022-05-03 11:46 | ED.RN ---
ok for pt to not have second second set of blood culture
[2022-05-03 12:36] VITALS: BP 107/46; PULSE 85; RESP 18; O2SAT 98
== END 2022-05-03 12:38 | disposition home or self-care (01) ==
PROVIDERS: Emergency Provider Emergency Medicine; PCP Internal Medicine; Visit Provider Emergency Medicine
DX: L03.114 Cellulitis of left upper limb (principal); Z99.2 Dependence on renal dialysis; N18.6 End stage renal disease; F17.210 Nicotine dependence, cigarettes, uncomplicated; D64.9 Anemia, unspecified; E78.5 Hyperlipidemia, unspecified; I25.2 Old myocardial infarction; Z95.0 Presence of cardiac pacemaker; Z79.02 Long term (current) use of antithrombotics/antiplatelets; Z79.899 Other long term (current) drug therapy; L50.9 Urticaria, unspecified
CPT/HCPCS: 80053; 85025; 87040; 96365; 96375; 99285; A4216

== ENCOUNTER 2022-05-26 06:21 | Observation (INO) | payer MEDICARE, SELFPAY ==
[2022-05-26] VITALS (7 sets, daily range): BP systolic 104–130; BP diastolic 51–66; PULSE 62–98; RESP 14–20; TEMP 36.4–36.7; O2SAT 92–96; BMI 21.9; BMI 21.2
--- NOTE | 2022-05-26 07:00 | EKG12_ITS ---
Test Reason : weakness Blood Pressure : / mmHG Vent. Rate : 066 BPM Atrial Rate : 050 BPM P-R Int : 000 ms QRS Dur : 140 ms QT Int : 504 ms P-R-T Axes : 000 071 233 degrees QTc Int : 528 ms Ventricular-paced rhythm with occasional premature ectopic complexes abnormal EKG Reconfirmed by LENORA PAULINO MD ([id number]), brands editor NITZA GERARD ([id number]) on 05/27/2022 2:21:04 PM Also confirmed by LENORA PAULINO MD ([id number]), brands editor NITZA GERARD ([id number]) on 05/27/2022 2:21:17 PM Referred By: Confirmed By:LENORA PAULINO MD
--- NOTE | 2022-05-26 07:01 | EX.ED.DYSGE1 ---
HPI History of Present Illness Chief Complaint: Weakness Informant: patient Narrative Narrative: Patient is an 87-year-old male with history of end-stage renal disease on hemodialysis, atrial fibrillation, COPD and anemia of chronic disease presenting for generalized weakness. Patient went to get out of bed this morning and states that his legs just gave out on him. He denies any injuries or hitting his head. Denies any chest pain. Notes that he has some chronic shortness of breath and a cough productive of clear sputum which is unchanged. Patient does note he has been more gassy throughout the night and for the past 3 to 4 weeks he has been having darker stools. Patient did tell EMS that he felt like he needs oxygen after walking. Patient is due for dialysis today. His last full session was 2 days ago, on Tuesday. [facility] Medical History History of heart attack Hyperlipidemia Kidney failure Pacemaker Home Medications Jenifer-Venessa 0.8 mg PO/SL DAILY kidneys 12/26/21 [History Last Taken 04/24/22 10:00] clopidogrel 75 mg tablet 75 mg PO DAILY blood 12/26/21 [History Last Taken 04/24/22 10:00] fluticasone fur. 100 mcg-umeclid 62.5 mcg-vilant 25 mcg inhalat.powder (Trelegy Ellipta) inhalation inhaler 12/26/21 [History Last Taken 04/24/22 10:00] pantoprazole 40 mg tablet,delayed release 40 mg PO DAILY acid 12/26/21 [History Last Taken 04/24/22 10:00] sertraline 25 mg tablet 25 mg PO DAILY mood 12/26/21 [History Last Taken 04/24/22 10:00] tamsulosin 0.4 mg capsule 0.4 mg PO DAILY prostate 12/26/21 [History Last Taken 04/24/22 10:00] atorvastatin 40 mg tablet 40 tab PO DAILY cholesterol 04/25/22 [History Last Taken 04/24/22 10:00] ciprofloxacin HCl 500 mg tablet (Cipro) 500 mg PO DAILY #1 TAB 04/30/22 [Rx Last Taken Unknown] midodrine 5 mg tablet 5 mg PO TIDCM #0 tabs 04/30/22 [Rx Last Taken Unknown] clindamycin HCl 300 mg capsule (Cleocin HCl) 300 mg PO Q6H #40 CAPSULES 05/03/22 [Rx Last Taken Unknown] Allergy/AdvReac Type Severity Reaction Status Date / Time No Known Allergies Allergy Verified 05/03/22 08:42 Social History household members: none Smoking Status: Current every day smoker tobacco type: cigarettes substance use type: does not use ROS ROS ED Constitutional Constitutional ED: Denies chills, fever(s) or sweats Eyes Eyes: Denies change in vision ENT ENT ED: Denies rhinorrhea or sore throat Cardiovascular Cardiovascular: Denies chest pain Respiratory/Chest Respiratory/Chest: Reports cough, dyspnea and dyspnea on exertion Gastrointestinal Gastrointestinal: Reports melena; Denies abdominal pain, diarrhea, nausea or vomiting Genitourinary Genitourinary ED: Reports other Details: Makes urine once a day Musculoskeletal Musculoskeletal: Denies arthralgias or myalgias Integumentary Reports rash and other Details: itching on back Neurologic Neurologic: Reports weakness; Denies headache(s) or paresthesias Psychiatric Psychiatric: Denies anxiety Hematologic/Lymphatic Hematologic/Lymphatic: Denies easy bleeding or easy bruising EXAM Physical Exam Const Vital Signs: 05/26/22 06:22 05/26/22 06:25 05/26/22 09:05 Temperature 97.6 F L Temperature Source Temporal Pulse Rate 98 66 Respiratory Rate 15 20 H Respiratory Effort Normal Respiratory Pattern Normal Blood Pressure 123/66 H 130/58 H Blood Pressure Mean 85 82 Pulse Ox 92 Oxygen Delivery Method Room Air Room Air Positive cachectic Constitutional Narrative: Chronically ill-appearing General Appearance ED: cachectic, NAD and pallor Nutritional Appearance: cachectic HEENT Reports dry mucous membranes Negative for trauma Mouth ED: Yes dry mucous membranes Mouth: dry mucous membranes Eyes PERRL and EOMs intact bilaterally Neck supple and no JVD Chest Wall inspection of chest normal and palpation of chest normal Resp normal respiratory effort and clear to auscultation bilaterally Cardio regular rate, regular rhythm and no murmurs Cardio Narrative: AV fistula in the right upper extremity with palpable thrill. 2+ left radial and DP pulses GI normal to inspection, nondistended, normoactive bowel sounds, non-tender and non-distended Back/Spine no CVA tenderness Extremity normal to inspection General Extremety ED: Negative for edema or tenderness General Extremity: Negative for edema Neuro oriented x3 and CN's II-XII intact bilaterally Neuro Narrative: No focal deficits appreciated Motor Exam: general weakness Psych mental status grossly normal Skin Skin Narrative: Patient has a scattered excoriations on his back as well as associated dry skin General Skin Exam: pallor; Negative for jaundice MDM MDM MDM Narrative Medical decision making narrative: Patient's evaluate for generalized weakness and inability to ambulate at home. He has extensive medical history including hemodialysis. Vital signs are unremarkable in the emergency room. Is not appear to be fluid overloaded. EKG does not show changes consistent with hyperkalemia and shows a paced rhythm. High since he troponin is elevated 160 however and repeat is 153. I suspect this is elevated secondary to decreased renal clearance and not because of ACS. He is not having any chest pain or other anginal equivalents. He does notice stools been darker stool Hemoccult is obtained. This is negative. Patient has chronic anemia which is stable at 11.5. His BUN and creatinine are chronically elevated however his potassium and anion gap are normal today. I do not think he requires emergent dialysis. Family does not feel that they can care for him at home so he will be admitted for placement. Patient is interested in palliative medicine consult after discussion with him. I did speak with him and he would like to be DNR CCA no intubation. Lab Data Attestation: I reviewed the patient's lab results. Labs: Laboratory Results - last 24 hr 05/26/22 05/26/22 05/26/22 07:30 07:30 09:15 WBC 6.0 RBC 3.51 L Hgb 11.5 L Hct 35.8 L MCV 102.0 H MCH 32.8 H MCHC 32.1 RDW Std Deviation 78.5 H RDW Coeff of Omer 21.6 H Plt Count 165 MPV 12.2 H Immature Gran % (Auto) 0.300 Neut % (Auto) 58.6 Lymph % (Auto) 21.3 [place] % (Auto) 12.6 H Eos % (Auto) 5.7 H Baso % (Auto) 1.5 H Absolute Neuts (auto) 3.5 Absolute Lymphs (auto) 1.27 Nucleated RBC % 0 Differential Comment SCANNED Anisocytosis 2+ Microcytosis 1+ Macrocytosis 1+ Sodium 142 Potassium 4.3 Chloride 102 Carbon Dioxide 33.0 H Anion Gap 7 BUN 26 H Creatinine 4.66 H Estim Creat Clear Calc 10.01 Est GFR (MDRD) Af Amer 15 L Est GFR (MDRD) Non-Af 13 L BUN/Creatinine Ratio 5.6 L Glucose 85 Calcium 9.5 Troponin I High Sens 160 H* 153 H* Radiography Chest X-Ray - ED: 1 View, Read by ED Physician, Read by Radiologist, Chronic Changes and - (Right lung mass) Diagnostic Testing: Clinical Impression(s) from Imaging Studies Chest X-Ray 05/26/22 07:14 IMPRESSION: Near-complete resolution of pleural fluid previously seen along lateral aspect of the right upper lung. Resolution of spiculated density previously seen along the right hemidiaphragm. Slight decrease in size of the nodular opacity along the lateral aspect of the minor fissure which may be due to decreasing fluid within the fissure (pseudotumor). Electronically Signed: Hilton Ojeda MD at 7:37 EDT , Rhythm Strip Rhythm Strip: Paced Rate: 66 Ectopy: None EKG Initial EKG: Attestation: I personally reviewed and interpreted this EKG as follows: Comments: Ventricular paced rhythm at a rate of 66 with occasional PVC QRS 140 QTC [address] segments Discharge Plan Dx/Rx/DC Orders Clinical Impression: Adult failure to thrive, Weakness, ESRD (end stage renal disease) Disposition Disposition: Acute Care Hospital [facility] Discharge Date/Time: 05/26/22 11:14
--- NOTE | 2022-05-26 07:14 | RAD_ITS ---
STUDY: X-RAY CHEST REASON FOR EXAM: Male, 87 years old. weakness, cough TECHNIQUE: Single AP portable upright view of the chest. 7:11 AM. COMPARISON: [Previous chest radiographs 04/25/2022.] FINDINGS: There is continued thickening of the minor fissure with stable adjacent haziness within the right upper lobe just cephalad to the thickened minor fissure; a nodular opacity is again projected at lateral margin of the minor fissure, slightly smaller than on the prior study as it now measures 2.9 cm in diameter as compared with 3.1 cm on the prior study. Pleural fluid previously seen along the lateral aspect of the right upper lung has almost completely resolved. There is stable pleural thickening along the lateral aspect of the right lower lung with stable blunting of the right lateral costophrenic angle by pleural effusion and/or pleural thickening. Spiculated opacity which partially obscured the right hemidiaphragm on the prior study has resolved. There is continued infiltrate in the right infrahilar region/right middle lobe, obscuring the right heart border. Mild interstitial thickening noted in the left lower lung. Heart size remains mildly enlarged with normal pulmonary vasculature. There are stable elongation and calcification of the aortic arch. Cardiac pacemaker remains in place. No acute osseous abnormality. There is no demonstrated abnormality of the visualized soft tissue structures of the upper abdomen. RAD/Chest 1 View (Portable) IMPRESSION: Near-complete resolution of pleural fluid previously seen along lateral aspect of the right upper lung. Resolution of spiculated density previously seen along the right hemidiaphragm. Slight decrease in size of the nodular opacity along the lateral aspect of the minor fissure which may be due to decreasing fluid within the fissure (pseudotumor). Electronically Signed: Hilton Ojeda MD at 7:37 EDT ,
[2022-05-26 07:48] LABS: Absolute Lymphocyte Count 1.27 X10^3/uL (0.83-4.51); Absolute Neutrophil Count 3.5 X10^3/uL (2.0-7.7); Basophil# 0.09 X10^3/uL; Basophil% 1.5 % (0-1); Eosinophil# 0.34 X10^3/uL; Eosinophils% 5.7 % (0-5); Hematocrit 35.8 % (40-54); Hemoglobin 11.5 g/dL (13.0-16.5); Lymphocyte # 1.27 X10^3/ul (0.83-4.51); Lymphocyte % 21.3 % (19-41); Mean Corp Hgb Conc 32.1 g/dL (32-36); Mean Corpuscular Hgb 32.8 pg (27.0-32.0); Mean Platelet Vol. 12.2 fl (6.2-12.0); Monocyte# 0.75 X10^3/uL; Monocyte% 12.6 % (0-10); NRBC Flagged by Analyzer 0 % (0-5); Neutrophil % 58.6 % (47-70); POSITIVE MORPHOLOGY YES; Platelet Count 165 K/mm3 (150-450); RBC Distribution Width CV 21.6 % (11.6-14.6); RBC Distribution Width SD 78.5 fl (35.1-43.9); Red Blood Count 3.51 M/mm3 (4.6-6.2)
[2022-05-26 07:55] LABS: Differential Indicated SCAN CRITERIA MET
[2022-05-26 08:08] LABS: Anion Gap 7 (5-15); BUN 26 mg/dL (7-18); BUN/Creat Ratio 5.6 RATIO (10-20); Calcium,Total 9.5 mg/dL (8.5-10.1); Chloride 102 mmol/L (98-107); Creatinine, Serum 4.66 mg/dL (0.70-1.30); EST Glomerular Filtration Rate 13 mL/min (>60); Est Glom Filt Rate - Afr Amer 15 mL/min (>60); Estimated Creatinine Clearance 10.01 ml/min; Glucose 85 mg/dL (74-106); Potassium 4.3 mmol/L (3.5-5.1); Sodium Level 142 mmol/L (136-145); Troponin-I HS (w/2H Reflex) 160 pg/mL (3.0-78.0)
[2022-05-26 08:36] LABS: Differential Comment SCANNED
[2022-05-26 08:37] LABS: Anisocytosis 2+; Macrocytosis 1+; Microcytosis 1+
--- NOTE | 2022-05-26 09:13 | ED.RN ---
Spoke with Kaila on the phone. Pt was not able to get up and walk or get ready for dialysis today. Pt lives with son and daughter in law. They are looking for more prison placement at this time.
[2022-05-26 09:41] LABS: Reflex Troponin-HS? (from REC) Y
[2022-05-26 09:48] LABS: Troponin-I HS 153 pg/mL (3.0-78.0)
--- NOTE | 2022-05-26 10:35 | PCM.HP.STD ---
HPI - General General Date of Admission: 05/26/22 Date of Service: 05/26/22 Chief Complaint: Generalized weakness?1 day HPI Narrative PADMINI MARSH, is a 87 M who presents with the above. Patient has past medical history of ESRD on hemodialysis, chronic atrial fibrillation, who comes in with generalized weakness. Patient lives with his son. Patient tried to get of bed this morning and his legs gave out. He denied hitting his head. He denied any dizziness or palpitations or shortness of breath. Patient is due for dialysis and had dialysis today. Family stated that they could not take care of him. Vitals in the ED showed blood pressure 123/66, heart rate 98, respiratory 15, temperature 97.6 F, oxygen saturation 92% on room air. WBC count 6.0, hemoglobin 11.5, platelet count 165, CMP unremarkable except for bicarbonate of 33, BUN 26, creatinine 4.66. Troponin was elevated at 153. Chest x-ray showed near complete resolution of pleural fluid previously seen along the lateral aspect of the right upper lung, resolution of spiculated density. Seen along the right hemidiaphragm, slight decrease in size of the nodular opacity along the lateral aspect of the minor fissure. Stool for occult blood was negative. Rapid COVID-19 test was negative. [facility] Medical History History of heart attack Hyperlipidemia Kidney failure Pacemaker Home Medications Jenifer-Venessa 0.8 mg PO/SL DAILY kidneys 12/26/21 [History Last Taken 04/24/22 10:00] clopidogrel 75 mg tablet 75 mg PO DAILY blood 12/26/21 [History Last Taken 04/24/22 10:00] fluticasone fur. 100 mcg-umeclid 62.5 mcg-vilant 25 mcg inhalat.powder (Trelegy Ellipta) inhalation inhaler 12/26/21 [History Last Taken 04/24/22 10:00] pantoprazole 40 mg tablet,delayed release 40 mg PO DAILY acid 12/26/21 [History Last Taken 04/24/22 10:00] sertraline 25 mg tablet 25 mg PO DAILY mood 12/26/21 [History Last Taken 04/24/22 10:00] tamsulosin 0.4 mg capsule 0.4 mg PO DAILY prostate 12/26/21 [History Last Taken 04/24/22 10:00] atorvastatin 40 mg tablet 40 tab PO DAILY cholesterol 04/25/22 [History Last Taken 04/24/22 10:00] ciprofloxacin HCl 500 mg tablet (Cipro) 500 mg PO DAILY #1 TAB 04/30/22 [Rx Last Taken Unknown] midodrine 5 mg tablet 5 mg PO TIDCM #0 tabs 04/30/22 [Rx Last Taken Unknown] clindamycin HCl 300 mg capsule (Cleocin HCl) 300 mg PO Q6H #40 CAPSULES 05/03/22 [Rx Last Taken Unknown] Allergy/AdvReac Type Severity Reaction Status Date / Time No Known Allergies Allergy Verified 05/03/22 08:42 Social History household members: none Smoking Status: Former smoker substance use type: does not use ROS ROS Narrative Constitutional: Reports: Weakness, Fatigue. Denies: Anorexia, Chills, Fever, Night Sweats, Weight Change Eyes: Denies: Blurred vision, Cataracts, Conjunctivae Inflammation, Pain, Redness, Vision Change HEENT: Denies: Difficulty Hearing, Difficulty Swallowing, Head Aches, Hearing Changes, Sinus Congestion, Sinus Drainage Cardiovascular: Denies: Chest Pain, Orthopnea, Palpitations Respiratory: Denies: Cough, Shortness of breath at rest, Sputum production Gastrointestinal: Denies: Abdominal Pain, Nausea, Vomiting Genitourinary: Denies: Dysuria Musculoskeletal: Denies: Joint Pain, Joint stiffness, Joint swelling, Joint Tenderness Skin: Denies: Rash, Wounds Neurological: Denies: Numbness, Tingling, Focal weakness Vital Signs Vital Signs Vital Signs: 05/26/22 06:22 05/26/22 06:25 05/26/22 09:05 Temperature 97.6 F L Temperature Source Temporal Pulse Rate 98 66 Respiratory Rate 15 20 H Respiratory Effort Normal Respiratory Pattern Normal Blood Pressure 123/66 H 130/58 H Blood Pressure Mean 85 82 Pulse Ox 92 Oxygen Delivery Method Room Air Room Air Weight Weight: 63.4 kg Body Mass Index (BMI) 21.9 Physical Exam Narrative Physical exam: General: Alert, Oriented x3, Cooperative, appears very frail HEENT: Atraumatic Oral: Moist Mucosa Neck: Supple Lungs: Diminished to auscultation Cardiovascular: HS I+II, regular, no murmurs Abdomen: Bowel Sounds Present, Soft, Non Tender Extremities: No edema, right upper extremity AV fistula Skin: No rashes, No breakdown Neurological: Grossly intact Psych/Mental Status: Appropriate Results Lab / Micro Data Result Diagrams: 05/26/22 07:30 05/26/22 07:30 Labs: Laboratory Results - last 24 hr 05/26/22 07:30: WBC 6.0, RBC 3.51 L, Hgb 11.5 L, Hct 35.8 L, MCV 102.0 H, MCH 32.8 H, MCHC 32.1, RDW Std Deviation 78.5 H, RDW Coeff of Omer 21.6 H, Plt Count 165, MPV 12.2 H, Immature Gran % (Auto) 0.300, Neut % (Auto) 58.6, Lymph % (Auto) 21.3, [place] % (Auto) 12.6 H, Eos % (Auto) 5.7 H, Baso % (Auto) 1.5 H, Absolute Neuts (auto) 3.5, Absolute Lymphs (auto) 1.27, Nucleated RBC % 0, Differential Comment SCANNED, Anisocytosis 2+, Microcytosis 1+, Macrocytosis 1+ 05/26/22 07:30: Sodium 142, Potassium 4.3, Chloride 102, Carbon Dioxide 33.0 H, Anion Gap 7, BUN 26 H, Creatinine 4.66 H, Estim Creat Clear Calc 10.01, Est GFR (MDRD) Af Amer 15 L, Est GFR (MDRD) Non-Af 13 L, BUN/Creatinine Ratio 5.6 L, Glucose 85, Calcium 9.5, Troponin I High Sens 160 H* 05/26/22 09:15: Troponin I High Sens 153 H* Micro: Microbiology 05/26/22 09:00 Stool Stool Occult Blood (CONSTANTINE) - Final 05/26/22 07:10 Nasal Secretion SARS-CoV-2 Antigen (Rapid) - Final Radiology Impression Chest X-Ray 05/26/22 07:14 IMPRESSION: Near-complete resolution of pleural fluid previously seen along lateral aspect of the right upper lung. Resolution of spiculated density previously seen along the right hemidiaphragm. Slight decrease in size of the nodular opacity along the lateral aspect of the minor fissure which may be due to decreasing fluid within the fissure (pseudotumor). Electronically Signed: Hilton Ojeda MD at 7:37 EDT , Assessment & Plan Assessment/Plan (1) Weakness: PLAN: Plan 1. Debility, fall this morning, probably acute on chronic, unclear etiology Admitted for placement PT/OT to evaluate and treat 2. ESRD on hemodialysis, Tuesday?Tuesday?Tuesday, nephrology consulted, dialysis today 3. COPD not in acute exacerbation, breathing treatments as needed 4. Hyperlipidemia, continue statin 5. DVT prophylaxis?heparin subcu 6. I discussed and explained in details the various types of CODE STATUS-full code, DNR CCA, DNR CC. Patient chose DNR CCA. Time spent discussing CODE STATUS 16 minutes Charges/Coding Visit Charges Inpatient E&M: 65554 Init Hosp L3 Procedures Hospitalists Procedures: 99050 Advncd Care Plan 30 Min
--- NOTE | 2022-05-26 10:51 | ED.RN ---
PER PROVIDER, DO NOT STRAIGHT CATH
--- NOTE | 2022-05-26 11:13 | CM.ED ---
SW Note inquired if patient needs precertification for SNF placement. Patient will need SNF placement. SAHARA spoke to Karen Nobles and Sylvester is requiring SNF. updated. Kaur SEYMOUR
--- NOTE | 2022-05-26 11:38 | CON.PCM.RE_ITS ---
Assessment & Plan Assessment/Plan (1) ESRD (end stage renal disease): (2) Weakness: (3) Anemia in chronic kidney disease: PLAN: Plan Patient was admitted to the hospital after presenting to the ER after a fall at home this morning. He has a history of ESRD and is on hemodialysis Tuesday, last dialyzed on Tuesday. Patient will undergo dialysis today over 3 hours and attempt fluid removal as patient/blood pressure tolerates. His EDW at the kidney center is 62 kg however likely this will be lowered by time of discharge as pre-HD weight is around 59.5 kg today. Patient does admit to poor appetite and weight loss. Bps acceptable on Midodrine. Chest x-ray was reviewed. Hemoglobin acceptable, at goal. Patient does not need RONNIE with HD today. PT/OT ordered. Will order protein supplement. Further orders forthcoming as hospitalization evolves, thank you for allowing us to participate in the care of Mr. Tang. HPI Consult Data Date of Consult: 05/26/22 HPI Narrative HPI Narrative: PADMINI TANG, is a 87 M with past medical history significant for atrial fibrillation, COPD, anemia, end-stage renal disease who is on hemodialysis at [facility] on a Tuesday schedule being followed there by Dr. Carranza who was brought to the emergency room this morning for evaluation for weakness after patient attempted to get out of bed this morning and his legs gave out from underneath him. Denies injury. Patient is being admitted for further evaluation and treatment. We were consulted for patient's history of E SRD. Patient last dialyzed at his kidney center Tuesday, did not have dialysis today. Patient denies any chest pain, shortness of breath or recent fevers. [facility] Medical History History of heart attack Hyperlipidemia Kidney failure Pacemaker Home Medications Jenifer-Venessa 0.8 mg PO/SL DAILY kidneys 12/26/21 [History Last Taken 04/24/22 10:00] clopidogrel 75 mg tablet 75 mg PO DAILY blood 12/26/21 [History Last Taken 04/24/22 10:00] fluticasone fur. 100 mcg-umeclid 62.5 mcg-vilant 25 mcg inhalat.powder (Trelegy Ellipta) inhalation inhaler 12/26/21 [History Last Taken 04/24/22 10:00] pantoprazole 40 mg tablet,delayed release 40 mg PO DAILY acid 12/26/21 [History Last Taken 04/24/22 10:00] sertraline 25 mg tablet 25 mg PO DAILY mood 12/26/21 [History Last Taken 04/24/22 10:00] tamsulosin 0.4 mg capsule 0.4 mg PO DAILY prostate 12/26/21 [History Last Taken 04/24/22 10:00] atorvastatin 40 mg tablet 40 tab PO DAILY cholesterol 04/25/22 [History Last Taken 04/24/22 10:00] ciprofloxacin HCl 500 mg tablet (Cipro) 500 mg PO DAILY #1 TAB 04/30/22 [Rx Last Taken Unknown] midodrine 5 mg tablet 5 mg PO TIDCM #0 tabs 04/30/22 [Rx Last Taken Unknown] clindamycin HCl 300 mg capsule (Cleocin HCl) 300 mg PO Q6H #40 CAPSULES 05/03/22 [Rx Last Taken Unknown] Allergy/AdvReac Type Severity Reaction Status Date / Time No Known Allergies Allergy Verified 05/03/22 08:42 Social History household members: none Smoking Status: Current every day smoker tobacco type: cigarettes substance use type: does not use ROS ROS Narrative As per HPI and past medical history Physical Exam Narrative Const: Alert and oriented x3, no apparent distress Respiratory: Lung sounds clear anteriorly and posteriorly. No wheezes, rhonchi rales noted Cardiovascular: S1, S2, no murmurs rubs or gallop GI: Abdomen soft, nontender, positive bowel sounds Extremities: No pitting edema noted bilateral lower legs or feet. Carlos wrap clean dry and intact to right lower leg Right upper arm AV fistula positive thrill and bruit Lab / Micro Data Result Diagrams: 05/26/22 07:30 05/26/22 07:30 Labs: Laboratory Results - last 24 hr 05/26/22 07:30: WBC 6.0, RBC 3.51 L, Hgb 11.5 L, Hct 35.8 L, MCV 102.0 H, MCH 32.8 H, MCHC 32.1, RDW Std Deviation 78.5 H, RDW Coeff of Omer 21.6 H, Plt Count 165, MPV 12.2 H, Immature Gran % (Auto) 0.300, Neut % (Auto) 58.6, Lymph % (Auto) 21.3, [place] % (Auto) 12.6 H, Eos % (Auto) 5.7 H, Baso % (Auto) 1.5 H, Absolute Neuts (auto) 3.5, Absolute Lymphs (auto) 1.27, Nucleated RBC % 0, Differential Comment SCANNED, Anisocytosis 2+, Microcytosis 1+, Macrocytosis 1+ 05/26/22 07:30: Sodium 142, Potassium 4.3, Chloride 102, Carbon Dioxide 33.0 H, Anion Gap 7, BUN 26 H, Creatinine 4.66 H, Estim Creat Clear Calc 10.01, Est GFR (MDRD) Af Amer 15 L, Est GFR (MDRD) Non-Af 13 L, BUN/Creatinine Ratio 5.6 L, Glucose 85, Calcium 9.5, Troponin I High Sens 160 H* 05/26/22 09:15: Troponin I High Sens 153 H* Micro: Microbiology 05/26/22 09:00 Stool Stool Occult Blood (CONSTANTINE) - Final 05/26/22 07:10 Nasal Secretion SARS-CoV-2 Antigen (Rapid) - Final Radiology Impression Chest X-Ray 05/26/22 07:14 IMPRESSION: Near-complete resolution of pleural fluid previously seen along lateral aspect of the right upper lung. Resolution of spiculated density previously seen along the right hemidiaphragm. Slight decrease in size of the nodular opacity along the lateral aspect of the minor fissure which may be due to decreasing fluid within the fissure (pseudotumor). Electronically Signed: Hilton Ojeda MD at 7:37 EDT ,
--- NOTE | 2022-05-26 12:23 | CASEMGMT ---
JAS DE LA GARZA NOTE: Call placed to [facility] @ [phone] and spoke w/Ana. She states pt's chair time is MWF @ 0730. Pt's last HD was this Tuesday. Ana made aware pt has been admitted to [facility] and anticipate pt will discharge to SNF @ d/c. Tabby GAYTAN RN, CM
--- NOTE | 2022-05-26 15:22 | DIALYSIS ---
HD x 3 hours complete. Tolerated tx well. Ran on 3k bath. UF of 2000ml. Used upper right arm access. Eustace removed post tx and pressure applied x 10 minutes. Hemostasis achieved. Fresh gauze and tape applied. See tx sheet for more details. Report was given to JAS Ellison.
--- NOTE | 2022-05-26 15:49 | CASEMGMT ---
SW was informed patient needs placement. SW met with patient. Introduced self and role at [facility]. SW provided patient with a list of SNF providers including quality and resource use data and consistent with the patient?s preferred geographic region, medical needs, and insurance network. SW let patient know the facilities that are in pink are the ones he has to choose from as those are the ones that take his insurance. Per physician patient said he wants TCU. SW let patient know TCU does not take patients that are on dialysis. SW will check back with patient. Plan: SNF pending patient's choices, acceptance, and pre-cert. Karen Up BINDERY OPERATOR JACK
--- NOTE | 2022-05-26 19:01 | NURSING ---
Pt. stated he used retail pharmacy at the hospital for his medications. Retail pharmacy called to get med list but they stated they only fill one of his medications. Tried to reach patient's son to get med list but did not answer. Will pass on in report to try again later.
[2022-05-27 03:49] VITALS: BP 113/51; PULSE 95; RESP 18; TEMP 36.6; O2SAT 93
[2022-05-27 05:54] LABS: Absolute Lymphocyte Count 1.24 X10^3/uL (0.83-4.51); Absolute Neutrophil Count 3.3 X10^3/uL (2.0-7.7); Basophil# 0.13 X10^3/uL; Basophil% 2.2 % (0-1); Eosinophils% 6.7 % (0-5); Hematocrit 33.9 % (40-54); Hemoglobin 11.3 g/dL (13.0-16.5); Lymphocyte # 1.24 X10^3/ul (0.83-4.51); Lymphocyte % 20.6 % (19-41); Mean Corp Hgb Conc 33.3 g/dL (32-36); Mean Corpuscular Hgb 32.8 pg (27.0-32.0); Mean Corpuscular Volume 98.3 fL (80-94); Mean Platelet Vol. 11.2 fl (6.2-12.0); Monocyte# 0.98 X10^3/uL; Monocyte% 16.3 % (0-10); NRBC Flagged by Analyzer 0 % (0-5); Neutrophil # 3.25 X10^3/uL (2.7-7.7); POSITIVE MORPHOLOGY YES; Platelet Count 141 K/mm3 (150-450); RBC Distribution Width CV 20.6 % (11.6-14.6); RBC Distribution Width SD 72.6 fl (35.1-43.9); Red Blood Count 3.45 M/mm3 (4.6-6.2)
[2022-05-27 06:00] LABS: Differential Indicated SCAN CRITERIA MET
[2022-05-27 06:22] LABS: Albumin, Serum 2.5 g/dL (3.2-5.0); BUN 20 mg/dL (7-18); BUN/Creat Ratio 6.4 RATIO (10-20); Calcium,Total 9.2 mg/dL (8.5-10.1); Chloride 101 mmol/L (98-107); Creatinine, Serum 3.13 mg/dL (0.70-1.30); EST Glomerular Filtration Rate 20 mL/min (>60); Est Glom Filt Rate - Afr Amer 24 mL/min (>60); Estimated Creatinine Clearance 13.66 ml/min; Glucose 110 mg/dL (74-106); Phosphorus 2.3 mg/dL (2.5-4.9); Potassium 4.2 mmol/L (3.5-5.1); Sodium Level 138 mmol/L (136-145)
[2022-05-27 06:47] LABS: Anisocytosis 2+; Differential Comment SCANNED; Macrocytosis 1+; Microcytosis 1+
[2022-05-27 08:40] VITALS: BP 100/57; PULSE 60; RESP 16; TEMP 36.6; O2SAT 95
[2022-05-27] MEDS: Sertraline 50 MG Tablet 25 MG PO (08:40)
[2022-05-27] MEDS: Clopidogrel Bisulfate 75 MG Tablet PO (08:40)
--- NOTE | 2022-05-27 09:10 | CASEMGMT ---
SW met with patient and went over facilities. Patient chose [facility]. SAHARA spoke with d/c city planning aide and she will send a referral to [facility]. Karen SANTIAGO
--- NOTE | 2022-05-27 09:14 | CASEMGMT ---
Discharge Delivery Motorcycle Driver Capri Ramires/verna Nuclear Medicine Physician sent over a referral to Amie at [place]. Will follow up. Capri Ferreira Discharge Delivery Motorcycle Driver
--- NOTE | 2022-05-27 09:49 | PN.RENAL_ITS ---
Subjective Subjective Following for ESRD Patient is sitting up in bed, eating breakfast. Denies any complaints. Reports tolerated dialysis yesterday without any cramping. Objective Data Objective Data Vital Signs: Vital Signs Temp Pulse Resp BP Pulse Ox O2 Del Method 97.8 F 95 18 113/51 L 93 Room Air 05/27/22 03:49 05/27/22 03:49 05/27/22 03:49 05/27/22 03:49 05/27/22 03:49 05/27/22 03:49 Oxygen Delivery Method Room Air Weight: 58.1 kg Body Mass Index (BMI) 21.2 Lab / Micro Data Result Diagrams: 05/27/22 05:28 05/27/22 05:28 Labs: Laboratory Results - last 24 hr 05/26/22 09:15: Troponin I High Sens 153 H* 05/27/22 05:28: WBC 6.0, RBC 3.45 L, Hgb 11.3 L, Hct 33.9 L, MCV 98.3 H, MCH 32.8 H, MCHC 33.3, RDW Std Deviation 72.6 H, RDW Coeff of Omer 20.6 H, Plt Count 141 L, MPV 11.2, Immature Gran % (Auto) 0.200, Neut % (Auto) 54.0, Lymph % (Auto) 20.6, [place] % (Auto) 16.3 H, Eos % (Auto) 6.7 H, Baso % (Auto) 2.2 H, Absolute Neuts (auto) 3.3, Absolute Lymphs (auto) 1.24, Nucleated RBC % 0, Differential Comment SCANNED, Anisocytosis 2+, Microcytosis 1+, Macrocytosis 1+ 05/27/22 05:28: Sodium 138, Potassium 4.2, Chloride 101, Carbon Dioxide 31.0, BUN 20 H, Creatinine 3.13 H, Estim Creat Clear Calc 13.66, Est GFR (MDRD) Af Amer 24 L, Est GFR (MDRD) Non-Af 20 L, BUN/Creatinine Ratio 6.4 L, Glucose 110 H , Calcium 9.2, Phosphorus 2.3 L, Albumin 2.5 L Micro: Microbiology 05/26/22 09:00 Stool Stool Occult Blood (CONSTANTINE) - Final 05/26/22 07:10 Nasal Secretion SARS-CoV-2 Antigen (Rapid) - Final Rhythm Strip Rhythm Strip: Paced Rate: 66 Ectopy: None Physical Exam Narrative Const: Alert and oriented x3, no apparent distress Respiratory: Lung sounds clear anteriorly and posteriorly. No wheezes, rhonchi rales noted Cardiovascular: S1, S2, no murmurs rubs or gallop GI: Abdomen soft, nontender, +bowel sounds Extremities: No pitting edema noted bilateral lower legs or feet. Right upper arm AV fistula positive thrill and bruit Assessment & Plan Assessment/Plan (1) ESRD (end stage renal disease): (2) Weakness: (3) Anemia in chronic kidney disease: PLAN: Plan - ESRD: hemodialysis MWF at [facility] in [place] followed by Dr. Carranza. No acute indication for FURNITURE DELIVERY DRIVER today, plan for dialysis tomorrow over 3.5 hrs with UF gain from last HD session and as pt/bp tolerates. Patient tolerated 2 L UF with dialysis on 05/26. EDW at the kidney center was 62 kg however likely this will be lowered by time of discharge. Weight post HD yesterday 57.5kg. Continue protein supplement ordered. - Bps acceptable, not on any hypertensives or midodrine at this time. Chest x- ray was reviewed. - Hemoglobin acceptable, at goal. Patient does not need RONNIE with HD tomorrow. - Debility: PT/OT ordered. Discharge planning in process for ECF placement. Patient will need transportation to/from dialysis. - discussed with discharge planning team.
--- NOTE | 2022-05-27 09:50 | WOUNDNOTE ---
wound photo: right mehta
--- NOTE | 2022-05-27 12:01 | CASEMGMT ---
Discharge Regulatory Attorney Capri Ramires/verna Truck Driver Flatbed reached out to Amie at [place] regarding referral. Capri will keep following up. Capri Ferreira Discharge Regulatory Attorney
--- NOTE | 2022-05-27 12:13 | CASEMGMT ---
JAS DE LA GARZA NOTE: Intro role of CM to patient and EDGAR form explained re: Observation status for treatment of debility?.? Explained hospitalization will be paid per?his insurance policy for Outpatient billing?and condition will continue to be evaluated for Inpt necessity. Also let pt know that [facility] sends paper in the billing packet with their phone number if questions arise. Discussed Pharmacy section of EDGAR form and self administered medication guideline.? Pt verbalizes understanding and does not have further questions. ?Form signed, copy made and placed in chart, and original given to pt. Tabby NIETON RN CM
--- NOTE | 2022-05-27 13:02 | CASEMGMT ---
Discharge Cover Operator Amie from [facility] reached out. [facility] can accept patient. SAHARA Jones notified. Plan: [facility] waiting on pre-cet. Capri Ferreira Discharge Cover Operator
--- NOTE | 2022-05-27 14:02 | CASEMGMT ---
Discharge Retail Business Manager Capri richter/verna optical assistant sent over PT/OT notes to Amie at [place]. Capri Ferreira Discharge Retail Business Manager
[2022-05-27 14:55] VITALS: BP 114/47; PULSE 64; RESP 18; TEMP 36.4; O2SAT 98
--- NOTE | 2022-05-27 15:53 | PCM.PN.HOSP ---
Subjective Subjective Follow-up on debility/ESRD on hemodialysis: Patient was seen and examined. Denied any new complaints. Had dialysis yesterday. No acute events overnight. Awaiting on discharge planning. Objective Data Objective Data Vital Signs: Vital Signs Temp Pulse Resp BP Pulse Ox O2 Del Method 97.6 F L 64 18 114/47 L 98 Room Air 05/27/22 14:55 05/27/22 14:55 05/27/22 14:55 05/27/22 14:55 05/27/22 14:55 05/27/22 14:55 Oxygen Delivery Method Room Air Weight: 58.1 kg Body Mass Index (BMI) 21.2 Intake & Output: Intake and Output for Last 24 Hours 05/25/22 05/26/22 05/27/22 23:59 23:59 23:59 Intake Total 240 / 240 Balance 240 / 240 Lab / Micro Data Result Diagrams: 05/27/22 05:28 05/27/22 05:28 Labs: Laboratory Results - last 24 hr 05/27/22 05:28: WBC 6.0, RBC 3.45 L, Hgb 11.3 L, Hct 33.9 L, MCV 98.3 H, MCH 32.8 H, MCHC 33.3, RDW Std Deviation 72.6 H, RDW Coeff of Omer 20.6 H, Plt Count 141 L, MPV 11.2, Immature Gran % (Auto) 0.200, Neut % (Auto) 54.0, Lymph % (Auto) 20.6, [place] % (Auto) 16.3 H, Eos % (Auto) 6.7 H, Baso % (Auto) 2.2 H, Absolute Neuts (auto) 3.3, Absolute Lymphs (auto) 1.24, Nucleated RBC % 0, Differential Comment SCANNED, Anisocytosis 2+, Microcytosis 1+, Macrocytosis 1+ 05/27/22 05:28: Sodium 138, Potassium 4.2, Chloride 101, Carbon Dioxide 31.0, BUN 20 H, Creatinine 3.13 H, Estim Creat Clear Calc 13.66, Est GFR (MDRD) Af Amer 24 L, Est GFR (MDRD) Non-Af 20 L, BUN/Creatinine Ratio 6.4 L, Glucose 110 H, Calcium 9.2, Phosphorus 2.3 L, Albumin 2.5 L Micro: Microbiology 05/26/22 09:00 Stool Stool Occult Blood (CONSTANTINE) - Final 05/26/22 07:10 Nasal Secretion SARS-CoV-2 Antigen (Rapid) - Final Rhythm Strip Rhythm Strip: Paced Rate: 66 Ectopy: None Physical Exam Narrative Physical exam: General: Alert, Oriented x3, Cooperative, appears very frail HEENT: Atraumatic Oral: Moist Mucosa Neck: Supple Lungs: Diminished to auscultation Cardiovascular: HS I+II, regular, no murmurs Abdomen: Bowel Sounds Present, Soft, Non Tender Extremities: No edema, right upper extremity AV fistula Skin: No rashes, No breakdown Neurological: Grossly intact Psych/Mental Status: Appropriate Assessment & Plan Assessment/Plan (1) Weakness: PLAN: Plan 1. Debility, fall this morning, probably acute on chronic, unclear etiology [facility]waiting [facility] PT/OT consulted 2. ESRD on hemodialysis, Tuesday?Tuesday?Tuesday, nephrology consulted, dialysis today 3. COPD not in acute exacerbation, breathing treatments as needed 4. Hyperlipidemia, continue statin 5. DVT prophylaxis?heparin subcu Charges/Coding Visit Charges Inpatient E&M: 25237 Subs Hosp L2
[2022-05-27] MEDS: Midodrine HCl 5 MG Tablet PO (17:43)
[2022-05-27 18:36] VITALS: PULSE 70; RESP 20
[2022-05-27] MEDS: Ipratropium/Albuterol Sulfate 3 ML AMPUL.NEB INHALATION (18:36)
[2022-05-27] MEDS: Budesonide Respules 0.5 MG/2 ML AMPUL.NEB. INHALATION (18:36)
[2022-05-27 21:09] VITALS: BP 121/51; PULSE 57; RESP 18; TEMP 36.4; O2SAT 95
[2022-05-27] MEDS: 0.9% Saline Lock 10 ML Syringe IV (21:24)
[2022-05-28] VITALS (7 sets, daily range): BP systolic 92–124; BP diastolic 56–60; PULSE 59–82; RESP 16–20; TEMP 36.3–36.6; O2SAT 92–100
[2022-05-28 06:30] LABS: Absolute Lymphocyte Count 1.28 X10^3/uL (0.83-4.51); Absolute Neutrophil Count 3.5 X10^3/uL (2.0-7.7); Basophil% 1.6 % (0-1); Eosinophil# 0.41 X10^3/uL; Eosinophils% 6.6 % (0-5); Hematocrit 34.5 % (40-54); Hemoglobin 11.4 g/dL (13.0-16.5); Lymphocyte # 1.28 X10^3/ul (0.83-4.51); Lymphocyte % 20.6 % (19-41); Mean Corpuscular Hgb 33.2 pg (27.0-32.0); Mean Corpuscular Volume 100.6 fL (80-94); Mean Platelet Vol. 10.9 fl (6.2-12.0); Monocyte# 0.95 X10^3/uL; Monocyte% 15.3 % (0-10); NRBC Flagged by Analyzer 0 % (0-5); Neutrophil # 3.45 X10^3/uL (2.7-7.7); Neutrophil % 55.7 % (47-70); POSITIVE MORPHOLOGY YES; Platelet Count 144 K/mm3 (150-450); RBC Distribution Width CV 20.9 % (11.6-14.6); RBC Distribution Width SD 75.7 fl (35.1-43.9); Red Blood Count 3.43 M/mm3 (4.6-6.2); White Blood Count 6.2 K/mm3 (4.4-11.0)
[2022-05-28 06:31] LABS: Differential Indicated SCAN CRITERIA MET
[2022-05-28 06:46] LABS: Anisocytosis 1+; Differential Comment SCANNED; Macrocytosis 1+
[2022-05-28 06:58] LABS: Albumin, Serum 2.6 g/dL (3.2-5.0); BUN 29 mg/dL (7-18); BUN/Creat Ratio 6.6 RATIO (10-20); Calcium,Total 9.8 mg/dL (8.5-10.1); Chloride 101 mmol/L (98-107); Creatinine, Serum 4.38 mg/dL (0.70-1.30); EST Glomerular Filtration Rate 14 mL/min (>60); Est Glom Filt Rate - Afr Amer 17 mL/min (>60); Estimated Creatinine Clearance 9.81 ml/min; Glucose 111 mg/dL (74-106); Phosphorus 3.1 mg/dL (2.5-4.9); Potassium 4.2 mmol/L (3.5-5.1); Sodium Level 140 mmol/L (136-145)
[2022-05-28] MEDS: Budesonide Respules 0.5 MG/2 ML AMPUL.NEB. INHALATION ×2 (07:18→19:31)
[2022-05-28] MEDS: Ipratropium/Albuterol Sulfate 3 ML AMPUL.NEB INHALATION ×2 (07:18→19:31)
[2022-05-28] MEDS: Midodrine HCl 5 MG Tablet PO ×3 (09:28→16:34)
[2022-05-28] MEDS: Clopidogrel Bisulfate 75 MG Tablet PO (09:28)
[2022-05-28] MEDS: Vitamin B Comp W-C Capsule 1 CAP PO (09:28)
[2022-05-28] MEDS: Atorvastatin Calcium 40 MG Tablet PO (09:28)
[2022-05-28] MEDS: Pantoprazole Sodium 40 MG Tablet PO (09:29)
[2022-05-28] MEDS: Sertraline 50 MG Tablet 25 MG PO (09:29)
--- NOTE | 2022-05-28 12:34 | PCM.TXEXTCAR ---
Diet Diet Order/Speech Therapy: 05/26/22 11:36 Diet: Renal - General Food consistency:: Regular Liquid Consistency:: Regular/Thin Routine Orders/Code Status Suppository Type: Dulcolax 10mg Suppository Frequency: Daily PRN Keep PO Greater than or Equal to (%): 94 Routine Lab Work: CBC (within 3 days) and - (CMP within 3 days) Code Status: DNRCC-A Wound(s) Left lower leg: Wound Type: Stasis Ulcer Left shoulder: Wound Type: Skin Tear right mehta: Wound Type: nonhealing wound Dressing Change: AntiMicrobial (Aquacel AG, etc) Therapies Weight Bearing: Weight bearing as tolerated Physical Therapy: Eval and Treat Occupational Therapy: Eval and Treat Problem/Diagnosis (1) Weakness: Status: Acute Code(s): R53.1 - Weakness Allergies/Procedures Done in Hospital Allergies No Known Allergies Allergy (Verified 05/03/22 08:42) Procedures: None Type of Care/Length of Stay Estimated LOS: Convalescent Care Less Than 30 days Type of Care Needed: Skilled Rehab Potential: Fair Prognosis: Fair Additional Orders/Day of Discharge Day of Discharge: 05/28/22 Dietary and Speech Recommendations Dietitian Recommendations/Changes: Continue Renal- General diet. RD will add chocolate Ensure Enlive 120mL 4x daily with medpass Discharge Plan Admission Admit Date/Time: 05/26/22 10:31 Primary Reason for Your Visit: Debility Attending Provider: Katelynn Mauro Primary Care Provider: Michael Brooks Consulting Providers: Diego Carlton Discharge Orders/Prescriptions Prescriptions: New acetaminophen [Tylenol] 325 mg Tablet 650 mg PO Q6H PRN PRN (Reason: Pain Score 1-10/Temp > 100.7 F) Qty: 0 0RF sennosides-docusate sodium [Stool Softener-Stimulant Laxat] 8.6-50 mg Tablet 2 tab PO BID PRN PRN (Reason: Constipation) Qty: 0 0RF budesonide 0.5 mg/2 mL Suspension For Nebulization 0.5 mg inhalation Q12H.RT Qty: 0 0RF Ensure Enlive 0.08 gram-1.5 kcal/mL Liquid 120 ml PO 4X/DAY Qty: 0 0RF Continued clopidogrel 75 mg Tablet 75 mg PO DAILY pantoprazole 40 mg Tablet,Delayed Release (Dr/Ec) 40 mg PO DAILY sertraline 25 mg Tablet 25 mg PO DAILY Trelegy Ellipta 100-62.5-25 mcg Blister With Device 1 inh inhalation DAILY atorvastatin 40 mg tablet 40 tab PO DAILY midodrine 5 mg Tablet 5 mg PO TIDCM Qty: 0 0RF Jenifer-Venessa 0.8 mg Tablet 1 tab PO DAILY Referrals / Follow Up: Michael Brooks MD [Primary Care Provider] - Disposition Disposition (needs filled in before D/C Order can be placed): Long-Term Facility
--- NOTE | 2022-05-28 13:44 | PN.HOSP_ITS ---
Subjective Subjective Follow-up on debility/ESRD on hemodialysis: Patient was seen and examined.? Denied any new complaints.? No acute events overnight.? Awaiting on discharge planning. Objective Data Objective Data Vital Signs: Vital Signs Temp Pulse Resp BP Pulse Ox O2 Del Method 97.9 F 67 16 118/60 94 Room Air 05/28/22 09:13 05/28/22 09:13 05/28/22 09:13 05/28/22 09:13 05/28/22 09:13 05/28/22 09:13 Oxygen Delivery Method Room Air Weight: 58.4 kg Body Mass Index (BMI) 21.2 Intake & Output: Intake and Output for Last 24 Hours 05/26/22 05/27/22 05/28/22 23:59 23:59 23:59 Intake Total 760 / 760 Output Total 1999 Balance -1999 760 / 760 Lab / Micro Data Result Diagrams: 05/28/22 06:20 05/28/22 06:20 Labs: Laboratory Results - last 24 hr 05/28/22 06:20: WBC 6.2, RBC 3.43 L, Hgb 11.4 L, Hct 34.5 L, MCV 100.6 H, MCH 33.2 H, MCHC 33.0, RDW Std Deviation 75.7 H, RDW Coeff of Omer 20.9 H, Plt Count 144 L, MPV 10.9, Immature Gran % (Auto) 0.200, Neut % (Auto) 55.7, Lymph % (Auto) 20.6, [place] % (Auto) 15.3 H, Eos % (Auto) 6.6 H, Baso % (Auto) 1.6 H, Abso lute Neuts (auto) 3.5, Absolute Lymphs (auto) 1.28, Nucleated RBC % 0, Differential Comment SCANNED, Anisocytosis 1+, Macrocytosis 1+ 05/28/22 06:20: Sodium 140, Potassium 4.2, Chloride 101, Carbon Dioxide 33.0 H, BUN 29 H, Creatinine 4.38 H, Estim Creat Clear Calc 9.81, Est GFR (MDRD) Af Amer 17 L, Est GFR (MDRD) Non-Af 14 L, BUN/Creatinine Ratio 6.6 L, Glucose 111 H, Calcium 9.8, Phosphorus 3.1, Albumin 2.6 L Micro: Microbiology 05/26/22 09:00 Stool Stool Occult Blood (CONSTANTINE) - Final 05/26/22 07:10 Nasal Secretion SARS-CoV-2 Antigen (Rapid) - Final Rhythm Strip Rhythm Strip: Paced Rate: 66 Ectopy: None Physical Exam Narrative Physical exam: General: Alert, Oriented x3, Cooperative, appears very frail HEENT: Atraumatic Oral: Moist Mucosa Neck: Supple Lungs: Diminished to auscultation Cardiovascular: HS I+II, regular, no murmurs Abdomen: Bowel Sounds Present, Soft, Non Tender Extremities: No edema, right upper extremity AV fistula Skin: No rashes, No breakdown Neurological: Grossly intact Psych/Mental Status: Appropriate Assessment & Plan Assessment/Plan (1) Weakness: PLAN: Plan 1. Debility, fall this morning, probably acute on chronic, unclear etiology Awaiting on discharge to residential facility PT/OT consulted 2. ESRD on hemodialysis, Tuesday?Tuesday?Tuesday, nephrology consulted, dialysis today 3. COPD not in acute exacerbation, breathing treatments as needed 4. Hyperlipidemia, continue statin 5. DVT prophylaxis?heparin subcu Charges/Coding Visit Charges Inpatient E&M: 01909 Subs Hosp L2
--- NOTE | 2022-05-28 14:24 | PN.RENAL_ITS ---
Subjective Subjective Following for ESRD Seen on dialysis, tolerating treatment well. No overnight events. Denies any complaints Objective Data Objective Data Vital Signs: Vital Signs Temp Pulse Resp BP Pulse Ox O2 Del Method 97.5 F L 66 20 H 116/56 L 100 Room Air 05/28/22 14:10 05/28/22 14:10 05/28/22 14:10 05/28/22 14:10 05/28/22 14:10 05/28/22 14:10 Oxygen Delivery Method Room Air Weight: 58.4 kg Body Mass Index (BMI) 21.2 Intake & Output: Intake and Output for Last 24 Hours 05/26/22 05/27/22 05/28/22 23:59 23:59 23:59 Intake Total 760 / 760 Output Total 1999 Balance -1999 760 / 760 Lab / Micro Data Result Diagrams: 05/28/22 06:20 05/28/22 06:20 Labs: Laboratory Results - last 24 hr 05/28/22 06:20: WBC 6.2, RBC 3.43 L, Hgb 11.4 L, Hct 34.5 L, MCV 100.6 H, MCH 33.2 H, MCHC 33.0, RDW Std Deviation 75.7 H, RDW Coeff of Omer 20.9 H, Plt Count 144 L, MPV 10.9, Immature Gran % (Auto) 0.200, Neut % (Auto) 55.7, Lymph % ( Auto) 20.6, [place] % (Auto) 15.3 H, Eos % (Auto) 6.6 H, Baso % (Auto) 1.6 H, Absolute Neuts (auto) 3.5, Absolute Lymphs (auto) 1.28, Nucleated RBC % 0, Differential Comment SCANNED, Anisocytosis 1+, Macrocytosis 1+ 05/28/22 06:20: Sodium 140, Potassium 4.2, Chloride 101, Carbon Dioxide 33.0 H, BUN 29 H, Creatinine 4.38 H, Estim Creat Clear Calc 9.81, Est GFR (MDRD) Af Amer 17 L, Est GFR (MDRD) Non-Af 14 L, BUN/Creatinine Ratio 6.6 L, Glucose 111 H, Calcium 9.8, Phosphorus 3.1, Albumin 2.6 L Micro: Microbiology 05/26/22 09:00 Stool Stool Occult Blood (CONSTANTINE) - Final 05/26/22 07:10 Nasal Secretion SARS-CoV-2 Antigen (Rapid) - Final Rhythm Strip Rhythm Strip: Paced Rate: 66 Ectopy: None Physical Exam Narrative Const: Alert and oriented x3, no apparent distress Respiratory: Lung sounds clear anteriorly and posteriorly. No wheezes, rhonchi rales noted Cardiovascular: S1, S2, no murmurs rubs or gallop GI: Abdomen soft, nontender, +bowel sounds Extremities: No pitting edema noted bilateral lower legs or feet. Right upper arm AV fistula positive thrill and bruit Assessment & Plan Assessment/Plan (1) ESRD (end stage renal disease): (2) Weakness: (3) Anemia in chronic kidney disease: PLAN: Plan - ESRD: hemodialysis MWF at [facility] in [place] followed by Dr. Carranza. To undergo dialysis today over 3.5 hrs with UF ~2L as pt/bp tolerates. Patient tolerated 2 L UF with dialysis on 05/26. EDW at the kidney center was 62 kg however this will be lowered by time of discharge. Weight post HD Tuesday 57.5kg. Continue protein supplement ordered. - Bps acceptable, on midodrine 5 mg 3 times daily, chest x-ray was reviewed. -Mineral and bone disease; phosphorus is 3.1. Patient does not need binders. Calcium acceptable. - Hemoglobin acceptable, at goal. Patient does not need RONNIE with HD today. - Debility: PT/OT ordered. Discharge planning in process for ECF placement. Patient will need transportation to/from dialysis. - discussed with discharge planning team.
--- NOTE | 2022-05-28 15:08 | CASEMGMT ---
Discharge Chuck Splitter Capri richter/verna fitzgerald let Amie at [facility] know that if pre-cert is obtained to please call the floor at [phone]. Green Sheet on chart. Plan: [facility], waiting pre-cert. Capri Ferreira Discharge Chuck Splitter
--- NOTE | 2022-05-28 15:54 | DIALYSIS ---
Hemodialysis x3.5 hours completed at 1530 on a 3K bath, tolerated well, UF 1800mL, maintained profile A, accessed via JUSTIN AVF using 15G needles, worked well, needles pulled post tx and stasis achieved without issue, next tx planned for Tuesday
--- NOTE | 2022-05-28 16:38 | DS.PCM_ITS ---
Providers Date of Admission: 05/26/22 Date of Discharge: 05/28/22 Primary Care Physician: Dr. Michale Brooks MD Consultations 05/26/22 11:36 Consult: Nephrology Routine Consulting Provider: Diego Carlton Reason for Consult: ESRD on HD EMERGENT Consult: No MD Notified: Yes Date Notified: 05/26/22 Time Notified: 11:26 Method of Notification: Answering Service 05/27/22 02:13 Consult: Onc/Wound/group president Routine Comment: Reason for Consult:: Left leg stasis ulcer Reason For Visit: DEBILITY Diagnosis Discharge Diagnosis (1) Weakness: Status: Acute Code(s): R53.1 - Weakness Medications at Discharge Home Medications clopidogrel 75 mg tablet 75 mg PO DAILY blood 12/26/21 fluticasone fur. 100 mcg-umeclid 62.5 mcg-vilant 25 mcg inhalat.powder (Trelegy Ellipta) 1 inh inhalation DAILY inhaler 12/26/21 pantoprazole 40 mg tablet,delayed release 40 mg PO DAILY acid 12/26/21 sertraline 25 mg tablet 25 mg PO DAILY mood 12/26/21 atorvastatin 40 mg tablet 40 tab PO DAILY cholesterol 04/25/22 midodrine 5 mg tablet 5 mg PO TIDCM #0 tabs 04/30/22 vitamin B complex-vitamin C-folic acid 0.8 mg tablet (Jenifer-Venessa) 1 tab PO DAILY supplement 05/27/22 acetaminophen 325 mg tablet (Tylenol) 650 mg PO Q6H PRN PRN Pain Score 1-10/Temp > 100.7 F #0 tabs 05/28/22 budesonide 0.5 mg/2 mL suspension for nebulization 0.5 mg (2 mL) inhalation Q12H.RT #0 mL 05/28/22 food supplemt, lactose-reduced 0.08 gram-1.5 kcal/mL oral liquid (Ensure Enlive) 120 ml PO 4X/DAY #0 mL 05/28/22 sennosides 8.6 mg-docusate sodium 50 mg tablet (Stool Softener-Stimulant Laxative) 2 tab PO BID PRN PRN Constipation #0 tabs 05/28/22 Hospital Course Operations None Procedures None Summary of Care Provided Minutes Spent on Discharge: 35 Hospital Course: 87 y/o male with medical history of ESRD on hemodialysis, chronic atrial fibrillation, who comes in with generalized weakness. Patient lives with his son and was trying to get out of bed when his legs gave out. He did not hit his head. He denied any chest pain or dizziness or palpitation. Patient was due to get his dialysis on the day of admission but felt very weak. His son and family felt he could not take care of patient. Patient was brought to the ED, his vitals were stable. Blood work was unremarkable except for elevated creatinine and troponin. Patient had dialysis on the day of admission. He continued to remain stable. He was seen by PT and OT and skilled for discharge to intermediate facility. There were no acute events during this hospital stay. Physical Exam Narrative Physical exam: General: Alert, Oriented x3, Cooperative, appears very frail HEENT: Atraumatic Oral: Moist Mucosa Neck: Supple Lungs: Diminished to auscultation Cardiovascular: HS I+II, regular, no murmurs Abdomen: Bowel Sounds Present, Soft, Non Tender Extremities: No edema, right upper extremity AV fistula Skin: No rashes, No breakdown Neurological: Grossly intact Psych/Mental Status: Appropriate Weight / BMI Weight Weight: 58.4 kg Body Mass Index (BMI) 21.2 ABG / Lab / Microbiology Data Result Diagrams: 05/28/22 06:20 05/28/22 06:20 Laboratory: Laboratory Results - last 24 hr 05/28/22 06:20: WBC 6.2, RBC 3.43 L, Hgb 11.4 L, Hct 34.5 L, MCV 100.6 H, MCH 33.2 H, MCHC 33.0, RDW Std Deviation 75.7 H, RDW Coeff of Omer 20.9 H, Plt Count 144 L, MPV 10.9, Immature Gran % (Auto) 0.200, Neut % (Auto) 55.7, Lymph % (Auto) 20.6, Taylor % (Auto) 15.3 H, Eos % (Auto) 6.6 H, Baso % (Auto) 1.6 H, Absolute Neuts (auto) 3.5, Absolute Lymphs (auto) 1.28, Nucleated RBC % 0, Differential Comment SCANNED, Anisocytosis 1+, Macrocytosis 1+ 05/28/22 06:20: Sodium 140, Potassium 4.2, Chloride 101, Carbon Dioxide 33.0 H, BUN 29 H, Creatinine 4.38 H, Estim Creat Clear Calc 9.81, Est GFR (MDRD) Af Amer 17 L, Est GFR (MDRD) Non-Af 14 L, BUN/Creatinine Ratio 6.6 L, Glucose 111 H, Calcium 9.8, Phosphorus 3.1, Albumin 2.6 L Microbiology: Microbiology 05/26/22 09:00 Stool Stool Occult Blood (CONSTANTINE) - Final 05/26/22 07:10 Nasal Secretion SARS-CoV-2 Antigen (Rapid) - Final D/C Instructions Discharge Diet: Renal Diet Meaningful Use Info Meaningful Use Diagnoses (Choose all that apply): None applicable Discharge Plan Admission Admit Date/Time: 05/26/22 10:31 Primary Reason for Your Visit: Debility Attending Provider: Katelynn Mauro Primary Care Provider: Michael Brooks Consulting Providers: Diego Carlton Discharge Orders/Prescriptions Prescriptions: New acetaminophen [Tylenol] 325 mg Tablet 650 mg PO Q6H PRN PRN (Reason: Pain Score 1-10/Temp > 100.7 F) Qty: 0 0RF sennosides-docusate sodium [Stool Softener-Stimulant Laxat] 8.6-50 mg Tablet 2 tab PO BID PRN PRN (Reason: Constipation) Qty: 0 0RF budesonide 0.5 mg/2 mL Suspension For Nebulization 0.5 mg inhalation Q12H.RT Qty: 0 0RF Ensure Enlive 0.08 gram-1.5 kcal/mL Liquid 120 ml PO 4X/DAY Qty: 0 0RF Continued clopidogrel 75 mg Tablet 75 mg PO DAILY pantoprazole 40 mg Tablet,Delayed Release (Dr/Ec) 40 mg PO DAILY sertraline 25 mg Tablet 25 mg PO DAILY Trelegy Ellipta 100-62.5-25 mcg Blister With Device 1 inh inhalation DAILY atorvastatin 40 mg tablet 40 tab PO DAILY midodrine 5 mg Tablet 5 mg PO TIDCM Qty: 0 0RF Jenifer-Venessa 0.8 mg Tablet 1 tab PO DAILY Referrals / Follow Up: Michael Brooks MD [Primary Care Provider] - Disposition Disposition (needs filled in before D/C Order can be placed): [facility]ustodial Facility Charges/Coding Visit Charges Inpatient E&M: 91888 Disch Hosp
--- NOTE | 2022-05-28 17:21 | NURSING ---
Attempted to contact son concerning pt's d/c to [facility], but was unable to get ahold of him.
--- NOTE | 2022-05-28 20:32 | NURSING ---
Pt left for [facility] at this time with belongings via physicians service.
--- NOTE | 2022-05-28 22:36 | NURSING ---
late entry - 2027 - pt DC'd via [facility] to [facility]
== END 2022-05-28 16:38 | disposition skilled nursing facility (03) ==
LOC: ED 07:25 → PCU 11:08
PROVIDERS: Admitting Provider Internal Medicine; Emergency Provider Emergency Medicine; PCP Internal Medicine; Visit Provider Internal Medicine
DX: R53.1 Weakness (principal); Z99.2 Dependence on renal dialysis; J44.9 Chronic obstructive pulmonary disease, unspecified; N18.6 End stage renal disease; Z79.02 Long term (current) use of antithrombotics/antiplatelets; F17.210 Nicotine dependence, cigarettes, uncomplicated; D63.1 Anemia in chronic kidney disease; R53.81 Other malaise; E78.5 Hyperlipidemia, unspecified; I87.2 Venous insufficiency (chronic) (peripheral); R62.7 Adult failure to thrive; Z79.899 Other long term (current) drug therapy; I25.2 Old myocardial infarction; Z95.0 Presence of cardiac pacemaker
CPT/HCPCS: 36415; 71045; 80048; 80069; 82274; 84484; 85025; 87811; 90937; 93005; 94640; 97110; 97162; 97166; 97802; 99218; 99251; 99285; J7030; A4216; G0257; G0378; G0463

== ENCOUNTER 2022-06-24 03:05 | Emergency (ER) | payer MEDICARE, SELFPAY ==
[2022-06-24 03:06] VITALS: BP 110/70; PULSE 70; RESP 16; TEMP 36.6; O2SAT 95; BMI 20.2
--- NOTE | 2022-06-24 04:21 | EX.ED.DYSGE1 ---
HPI History of Present Illness Chief Complaint: Wound Narrative Narrative: Patient is an 87-year-old male from the senior living with past medical history of end-stage renal disease on dialysis as well as history of COPD and atrial fibrillation. He receives dialysis on Tuesday and Tuesday. He went to dialysis as scheduled on Tuesday and received his full course. He returned home without any issues. He states that as he was falling asleep he felt like his right arm was kind of wet when he looked there was bleeding around his fistula. He states that the senior living tried to get the bleeding to stop but was unsuccessful after a few hours and therefore he was sent to the hospital for evaluation. Patient denies any bleeding disorder or blood thinner use. He states other than the persistent ooze of blood from his arm he feels at his baseline [facility] Medical History History of heart attack Hyperlipidemia Kidney failure Pacemaker Home Medications clopidogrel 75 mg tablet 75 mg PO DAILY blood 12/26/21 [History Last Taken 04/24/22 10:00] fluticasone fur. 100 mcg-umeclid 62.5 mcg-vilant 25 mcg inhalat.powder (Trelegy Ellipta) 1 inh inhalation DAILY inhaler 12/26/21 [History Last Taken 04/24/22 10:00] pantoprazole 40 mg tablet,delayed release 40 mg PO DAILY acid 12/26/21 [History Last Taken 04/24/22 10:00] sertraline 25 mg tablet 25 mg PO DAILY mood 12/26/21 [History Last Taken 04/24/22 10:00] atorvastatin 40 mg tablet 40 tab PO DAILY cholesterol 04/25/22 [History Last Taken 04/24/22 10:00] midodrine 5 mg tablet 5 mg PO TIDCM #0 tabs 04/30/22 [Rx Last Taken Unknown] vitamin B complex-vitamin C-folic acid 0.8 mg tablet (Jenifer-Venessa) 1 tab PO DAILY supplement 05/27/22 [History Last Taken Unknown] acetaminophen 325 mg tablet (Tylenol) 650 mg PO Q6H PRN PRN Pain Score 1-10/Temp > 100.7 F #0 tabs 05/28/22 [Rx Last Taken Unknown] budesonide 0.5 mg/2 mL suspension for nebulization 0.5 mg (2 mL) inhalation Q12H.RT #0 mL 05/28/22 [Rx Last Taken Unknown] food supplemt, lactose-reduced 0.08 gram-1.5 kcal/mL oral liquid (Ensure Enlive) 120 ml PO 4X/DAY #0 mL 05/28/22 [Rx Last Taken Unknown] sennosides 8.6 mg-docusate sodium 50 mg tablet (Stool Softener-Stimulant Laxative) 2 tab PO BID PRN PRN Constipation #0 tabs 05/28/22 [Rx Last Taken Unknown] Allergy/AdvReac Type Severity Reaction Status Date / Time No Known Allergies Allergy Verified 05/03/22 08:42 Social History household members: none Smoking Status: Former smoker substance use type: does not use ROS ROS ED Constitutional Constitutional ED: Denies chills or fever(s) ENT ENT ED: Denies sore throat Cardiovascular Cardiovascular: Denies chest pain Respiratory/Chest Respiratory/Chest: Denies cough or dyspnea Gastrointestinal Gastrointestinal: Denies abdominal pain, diarrhea, nausea or vomiting Musculoskeletal Musculoskeletal: Denies myalgias Integumentary Denies rash Neurologic Neurologic: Denies headache(s) Hematologic/Lymphatic Hematologic/Lymphatic: Denies easy bleeding or easy bruising EXAM Physical Exam Const Vital Signs: 06/24/22 03:06 Temperature 97.8 F Temperature Source Temporal Pulse Rate 70 Respiratory Rate 16 Blood Pressure 110/70 Blood Pressure Mean 83 Pulse Ox 95 Oxygen Delivery Method Room Air Positive well nourished and well developed General Appearance ED: well developed Eyes PERRL and EOMs intact bilaterally Neck supple Resp normal respiratory effort and clear to auscultation bilaterally Cardio regular rate and regular rhythm Extremity Extremity Narrative: Patient has a fistula in the right upper arm with palpable thrill and good bruit. There is a pinpoint area over top the fistula with persistent ooze of dark red nonpulsatile blood. The right arm is neurovascularly intact. No secondary changes to suggest infection Neuro oriented x3 and CN's II-XII intact bilaterally Sensorium / Orientation: alert Psych mental status grossly normal Skin no rashes or lesions noted MDM MDM MDM Narrative Medical decision making narrative: Patient presented to the ER stable vitals and has a history of a small bleeding fistula. His vitals are stable and he is not on a blood thinner do not feel there is need for laboratory studies. Patient had Gelfoam and a pressure wrap applied in the ER and was watched for approximately 1 hour. At this time the pressure wrap was removed and there is no further bleeding. Therefore as the bleeding has been controlled with Gelfoam and a pressure wrap and vitals are stable there is no need for further intervention and patient is safe for discharge back to the senior living Discharge Plan Triage Chief Complaint: Wound ED Provider: Yaya Felipe Dx/Rx/DC Orders Clinical Impression: Hemorrhage of arteriovenous fistula, History of end stage renal disease Instructions: ED Hemodialysis Access Bleeding Prescriptions: No Action clopidogrel 75 mg Tablet 75 mg PO DAILY pantoprazole 40 mg Tablet,Delayed Release (Dr/Ec) 40 mg PO DAILY sertraline 25 mg Tablet 25 mg PO DAILY Trelegy Ellipta 100-62.5-25 mcg Blister With Device 1 inh inhalation DAILY atorvastatin 40 mg tablet 40 tab PO DAILY midodrine 5 mg Tablet 5 mg PO TIDCM Qty: 0 0RF Jenifer-Venessa 0.8 mg Tablet 1 tab PO DAILY acetaminophen [Tylenol] 325 mg Tablet 650 mg PO Q6H PRN PRN (Reason: Pain Score 1-10/Temp > 100.7 F) Qty: 0 0RF sennosides-docusate sodium [Stool Softener-Stimulant Laxat] 8.6-50 mg Tablet 2 tab PO BID PRN PRN (Reason: Constipation) Qty: 0 0RF budesonide 0.5 mg/2 mL Suspension For Nebulization 0.5 mg inhalation Q12H.RT Qty: 0 0RF Ensure Enlive 0.08 gram-1.5 kcal/mL Liquid 120 ml PO 4X/DAY Qty: 0 0RF Primary Care Provider: Lico Chavez Referrals: Lico Chavez MD [Primary Care Provider] - Activity Restrictions/Additional Instructions: Please leave the Gelfoam and wrap in place on . It can be removed for dialysis on Tuesday and at that time use warm water to wash the Gelfoam off the skin. If you have any further concerns or return to bleeding please return to the ER for repeat evaluation Disposition Disposition: Home, Self Care
--- NOTE | 2022-06-24 04:45 | ED.RN ---
gel foam applied to bleeding puncture site of the dialysis shunt. pressure dressing applied.
[2022-06-24 05:24] VITALS: RESP 20
== END 2022-06-24 07:11 | disposition home or self-care (01) ==
PROVIDERS: Emergency Provider Emergency Medicine; PCP Family Medicine; Visit Provider Emergency Medicine
DX: T82.838A Hemorrhage due to vascular prosthetic devices, implants and grafts, initial encounter (principal); Z99.2 Dependence on renal dialysis; J44.9 Chronic obstructive pulmonary disease, unspecified; N18.6 End stage renal disease; I48.91 Unspecified atrial fibrillation; E78.5 Hyperlipidemia, unspecified; Z87.891 Personal history of nicotine dependence; Z79.899 Other long term (current) drug therapy; Z79.51 Long term (current) use of inhaled steroids
CPT/HCPCS: 99284

== ENCOUNTER → 2022-07-13 | Outpatient (REF) | payer MEDICARE, SELFPAY ==
[2022-07-13 11:06] LABS: Absolute Lymphocyte Count 1.14 X10^3/uL (0.83-4.51); Absolute Neutrophil Count 3.2 X10^3/uL (2.0-7.7); Basophil# 0.04 X10^3/uL; Basophil% 0.8 % (0-1); Eosinophil# 0.08 X10^3/uL; Eosinophils% 1.5 % (0-5); Hematocrit 31.6 % (40-54); Hemoglobin 10.4 g/dL (13.0-16.5); Lymphocyte # 1.14 X10^3/ul (0.83-4.51); Lymphocyte % 21.6 % (19-41); Mean Corp Hgb Conc 32.9 g/dL (32-36); Mean Corpuscular Hgb 33.7 pg (27.0-32.0); Mean Corpuscular Volume 102.3 fL (80-94); Mean Platelet Vol. 11.8 fl (6.2-12.0); Monocyte# 0.76 X10^3/uL; Monocyte% 14.4 % (0-10); NRBC Flagged by Analyzer 0 % (0-5); Neutrophil # 3.24 X10^3/uL (2.7-7.7); Neutrophil % 61.5 % (47-70); POSITIVE MORPHOLOGY YES; Platelet Count 165 K/mm3 (150-450); RBC Distribution Width CV 19.3 % (11.6-14.6); Red Blood Count 3.09 M/mm3 (4.6-6.2); White Blood Count 5.3 K/mm3 (4.4-11.0)
[2022-07-13 11:10] LABS: Differential Indicated SCAN CRITERIA MET
[2022-07-13 11:44] LABS: ALB/GLOB Ratio 0.8 RATIO (0.9-2.4); AST(SGOT) 36 U/L (15-37); Alanine Aminotransfer ALT/SGPT 29 U/L (16-61); Albumin, Serum 2.5 g/dL (3.2-5.0); Alkaline Phosphatase 105 U/L (45-117); Anion Gap 7 (5-15); BUN 18 mg/dL (7-18); BUN/Creat Ratio 5.6 RATIO (10-20); Calcium,Total 9.3 mg/dL (8.5-10.1); Chloride 101 mmol/L (98-107); EST Glomerular Filtration Rate 20 mL/min (>60); Est Glom Filt Rate - Afr Amer 24 mL/min (>60); Globulin 3.3 g/dL (2.2-4.2); Glucose 93 mg/dL (74-106); Potassium 3.2 mmol/L (3.5-5.1); Protein, Total 5.8 g/dL (6.4-8.2); Sodium Level 141 mmol/L (136-145)
[2022-07-13 12:05] LABS: Anisocytosis 1+
== END ==
LOC: OLS.WHLEAS 05:00
PROVIDERS: PCP Family Medicine; Visit Provider Family Medicine
DX: N18.6 End stage renal disease (principal); J44.9 Chronic obstructive pulmonary disease, unspecified; M62.81 Muscle weakness (generalized); R26.2 Difficulty in walking, not elsewhere classified; R27.8 Other lack of coordination; Z74.1 Need for assistance with personal care
CPT/HCPCS: 36415; 80053; 85025

== ENCOUNTER 2022-08-13 22:18 | Emergency (ER) | payer MEDICARE, SELFPAY ==
[2022-08-13 22:21] VITALS: BP 66/42; PULSE 83; RESP 22; TEMP 35.9; O2SAT 92; BMI 21.2
[2022-08-13 23:00] VITALS: BP 77/59; PULSE 61
--- NOTE | 2022-08-13 23:04 | ED.VIS.GI ---
HPI HPI - GI History of Present Illness Chief Complaint: GI Bleed Informant: EMS and SNF Abdominal Pain/Flank Pain Onset: Today Context: Sudden Onset Timing: Continuous Current Severity: Moderate Maximum Severity: Moderate Nausea/Vomiting/Emesis GI Symptom: Negative for Nausea or Vomiting Associated Symptoms Associated Symptoms: Negative for Dysuria or Frequency Narrative Narrative: 87-year-old male history of COPD, end-stage renal disease dialysis, A. fib on Plavix. Patient's at [facility]. Per the detention has been declining the last 2 months. He is DNR comfort care. They checked on him around 8:00- 9:00 tonight. And he was fine. At 9:45 pm they checked on him and he had a large amount of rectal bleeding with clots. Patient is unable to give any history. Prior similar symptoms: No Recent Illness/Hospitalization: No PFSH PFSH Medical History Anorexia Benign prostatic hyperplasia Cardiomegaly Chronic atrial fibrillation COPD (chronic obstructive pulmonary disease) Dependence on renal dialysis Difficulty in walking Dysphagia Elevated white blood cell count, unspecified Gastro-esophageal reflux disease with esophagitis, without bleeding History of heart attack Hyperlipemia Hyperlipidemia Hypotension, unspecified Kidney failure Muscle weakness Non-pressure chronic ulcer of right calf with fat layer exposed Other constipation Other specified anemias Pacemaker Pruritus Home Medications clopidogrel 75 mg tablet 75 mg PO DAILY blood 12/26/21 [History Last Taken 04/24/22 10:00] fluticasone fur. 100 mcg-umeclid 62.5 mcg-vilant 25 mcg inhalat.powder (Trelegy Ellipta) 1 inh inhalation DAILY inhaler 12/26/21 [History Last Taken 04/24/22 10:00] pantoprazole 40 mg tablet,delayed release 40 mg PO DAILY acid 12/26/21 [History Last Taken 04/24/22 10:00] sertraline 25 mg tablet 25 mg PO DAILY mood 12/26/21 [History Last Taken 04/24/22 10:00] atorvastatin 40 mg tablet 40 tab PO DAILY cholesterol 04/25/22 [History Last Taken 04/24/22 10:00] midodrine 5 mg tablet 5 mg PO TIDCM #0 tabs 04/30/22 [Rx Last Taken Unknown] vitamin B complex-vitamin C-folic acid 0.8 mg tablet (Jenifer-Venessa) 1 tab PO DAILY supplement 05/27/22 [History Last Taken Unknown] acetaminophen 325 mg tablet (Tylenol) 650 mg PO Q6H PRN PRN Pain Score 1-10/Temp > 100.7 F #0 tabs 05/28/22 [Rx Last Taken Unknown] budesonide 0.5 mg/2 mL suspension for nebulization 0.5 mg (2 mL) inhalation Q12H.RT #0 mL 05/28/22 [Rx Last Taken Unknown] food supplemt, lactose-reduced 0.08 gram-1.5 kcal/mL oral liquid (Ensure Enlive) 120 ml PO 4X/DAY #0 mL 05/28/22 [Rx Last Taken Unknown] sennosides 8.6 mg-docusate sodium 50 mg tablet (Stool Softener-Stimulant Laxative) 2 tab PO BID PRN PRN Constipation #0 tabs 05/28/22 [Rx Last Taken Unknown] Allergy/AdvReac Type Severity Reaction Status Date / Time No Known Allergies Allergy Verified 05/03/22 08:42 Social History household members: none Smoking Status: Former smoker substance use type: does not use ROS ROS ED ROS Narrative Unable to obtain because patient is unable to give any history. Review of Systems ROS Unobtainable: due to mental status EXAM Physical Exam Narrative Exam Narrative: 87-year-old male lying in bed. Very pale. Initial blood pressure 66/42. He is not actively breathing. He is DNR comfort care. He is not to be intubated. H EENT exam dry mucous membranes. Eyes closed. Pupils unreactive. Neck nontender. Lungs no active breathing. Heart, I cannot hear any heart tones. Abdomen soft nontender. He has dark blood dried on his buttocks. He is not moving his extremities. Neurologically he is not responsive to verbal or noxious stimuli. Const Vital Signs: 08/13/22 22:21 08/13/22 23:00 Temperature 96.6 F L Temperature Source Temporal Pulse Rate 83 61 Respiratory Rate 22 H Blood Pressure 66/42 L 77/59 L Blood Pressure Mean 50 65 Pulse Ox 92 Oxygen Delivery Method Nasal Cannula Nasal Cannula Oxygen Flow Rate (L/min) 5 5 Positive cachectic; Negative for well nourished, well developed, obese, contractures or unkempt General Appearance ED: cachectic and pallor; Negative for unkempt, well developed or contractures Nutritional Appearance: cachectic; Negative for obese HEENT Reports dry mucous membranes normocephalic and atraumatic; Negative for trauma or tenderness Mouth ED: Yes dry mucous membranes Mouth: dry mucous membranes Eyes Negative for PERRL or EOMs intact bilaterally Eyes Narrative: Eyes closed. General Eye ED: Negative for scleral icterus Neck no lymphadenopathy, supple and no JVD General: Negative for tenderness Carotids: Negative for other Resp No normal respiratory effort and No clear to auscultation bilaterally Resp Narrative: No respiratory effort. Not actively breathing. Cardio Negative for regular rate or regular rhythm Cardio Narrative: Paced on the monitor. No heart tones on exam. Rate: Negative for bradycardia Rhythm: Negative for abnormal rhythm GI non-tender, non-distended and no masses GI Narrative: Dark red blood per rectum. Back/Spine no CVA tenderness Extremity Negative for full ROM Extremity Narrative: Nontender. Chronic skin changes. Neuro Neuro Narrative: Unresponsive to noxious or verbal stimuli. Eyes closed. Not moving his extremities. Psych Negative for mental status grossly normal or thought process normal Appearance: Negative for unkempt Attitude: No agitated Mood & Affect: Negative for anxious or tearful Skin no wounds General Skin Exam: pallor; Negative for jaundice Lesions: no lesions Rashes: no rashes Trauma: Negative for abrasion Nails: Negative for discolored MDM MDM MDM Narrative Medical decision making narrative: 87-year-old chronically ill male from the detention on Plavix. Reportedly a significant GI bleed at the detention. He presents hypotensive currently has no palpable pulse. He is not breathing. Is made no respiratory effort. His pupils are unresponsive. He is DNR comfort care. He is not to be intubated. I did not take any other aggressive measures. I spoke to the detention. Nursing is already contacted family who is coming in. Patient was pronounced at 11:10 PM. I will speak to the family on their arrival. Discharge Plan Triage Chief Complaint: GI Bleed ED Provider: Provider,Ed Physician Dx/Rx/DC Orders Clinical Impression: Acute GI bleeding, History of COPD, History of atrial fibrillation, ESRD (end stage renal disease), Acute hypotension, Hypovolemic shock, Cardiovascular collapse Prescriptions: No Action clopidogrel 75 mg Tablet 75 mg PO DAILY pantoprazole 40 mg Tablet,Delayed Release (Dr/Ec) 40 mg PO DAILY sertraline 25 mg Tablet 25 mg PO DAILY Trelegy Ellipta 100-62.5-25 mcg Blister With Device 1 inh inhalation DAILY atorvastatin 40 mg tablet 40 tab PO DAILY midodrine 5 mg Tablet 5 mg PO TIDCM Qty: 0 0RF Jenifer-Venessa 0.8 mg Tablet 1 tab PO DAILY acetaminophen [Tylenol] 325 mg Tablet 650 mg PO Q6H PRN PRN (Reason: Pain Score 1-10/Temp > 100.7 F) Qty: 0 0RF sennosides-docusate sodium [Stool Softener-Stimulant Laxat] 8.6-50 mg Tablet 2 tab PO BID PRN PRN (Reason: Constipation) Qty: 0 0RF budesonide 0.5 mg/2 mL Suspension For Nebulization 0.5 mg inhalation Q12H.RT Qty: 0 0RF Ensure Enlive 0.08 gram-1.5 kcal/mL Liquid 120 ml PO 4X/DAY Qty: 0 0RF Primary Care Provider: Lico Chavez Referrals: Lico Chavez MD [Primary Care Provider] - Disposition Disposition:
--- NOTE | 2022-08-13 23:07 | ED.RN ---
2245: 2 IVs started. Not able to obtain labs. Patient's BP 50s over 30s, Dr. Lau notified. VO start 2 IV and start 2 liters NS. Fluids started and Dr. Lau to room. Patient did not appear to be breathing, but had a pulse. Family notified per Fabian MARK. 1105: Dr. Lau notified that patient continues to no longer be breathing. VO to stop IV fluids and turn off monitor.
== END 2022-08-14 01:28 ==
PROVIDERS: Emergency Provider Emergency Medicine; PCP Family Medicine; Visit Provider Emergency Medicine
DX: K92.2 Gastrointestinal hemorrhage, unspecified (principal); Z99.2 Dependence on renal dialysis; R57.1 Hypovolemic shock; J44.9 Chronic obstructive pulmonary disease, unspecified; N18.6 End stage renal disease; R57.0 Cardiogenic shock; I48.91 Unspecified atrial fibrillation; Z51.5 Encounter for palliative care; Z87.891 Personal history of nicotine dependence; R10.9 Unspecified abdominal pain; E78.5 Hyperlipidemia, unspecified; I95.89 Other hypotension; Z66 Do not resuscitate; Z79.899 Other long term (current) drug therapy; Z79.01 Long term (current) use of anticoagulants
CPT/HCPCS: 99283; J7030; A4216